=== PATIENT | female | born 1955 | race African-American/Black ===

== ENCOUNTER 2017-02-19 09:31 | Observation (INO) | payer OTHER ==
[2017-02-19 10:10] LABS: #Eosinphils 0.1 thou/uL (0.0-0.7); #Lymphocytes 2.9 thou/uL (1.20-3.40); #Monocytes 0.4 thou/uL (0.11-0.59); #Neutrophils 4.4 thou/uL (1.40-6.50); %Basophils 0.4 % (0.0-1.0); %Eosinophils 0.7 % (0.0-10.0); %Lymphocytes 37.1 % (21.0-51.0); %Monocytes 5.6 % (0.0-10.0); Hematocrit 45.2 % (36.0-47.0); Mean Platelet Volume 7.8 fL (7.4-10.4); Red Blood Cell (RBC) Count 5.07 mill/uL (4.20-5.40); White Blood Cell (WBC) Count 7.8 thou/uL (4.8-10.8)
[2017-02-19 10:27] LABS: ALT (SGPT) 24 U/L (8-55); AST (SGOT) 23 U/L (5-34); Alkaline Phosphatase 89 U/L (40-150); Anion Gap 13 mmol/L (10-20); BUN (Urea Nitrogen) 19 mg/dL (9.8-20.1); Bilirubin, Total 0.2 mg/dL (0.2-1.2); CK (CPK) 218 U/L (29-168); Calc. Creatinine Clearance 0 mL/min (70-130); Carbon Dioxide 26 mmol/L (22-29); Chloride 106 mmol/L (98-107); Estimated GFR-MDRD 79; Globulin 3.5 g/dL (2.4-3.5); Lipase 21 U/L (8-78); Protein, Total 7.8 g/dL (6.0-8.3)
[2017-02-19 10:32] LABS: Troponin I Less than 0.010 ng/mL (< 0.028)
--- NOTE | 2017-02-19 10:42 | CT ---
CT BRAIN WITHOUT CONTRAST: Date: 02/19/17 HISTORY: Syncope, weakness, right-sided weakness upper extremity which was new onset. FINDINGS: No evidence of acute infarct, hemorrhage, midline shift, or abnormal extra-axial fluid collections a re seen. The ventricular size is appropriate and the basilar cisterns are patent. The bony calvarium is intact. The visualized paranasal sinuses and mastoid air cells are well aerated. IMPRESSION: No CT evidence of acute intracranial process. Findings discussed over the telephone with ER physician, Dr. Florentin Ni, at 1028 hours. CODE CR. POS: [facility]
--- NOTE | 2017-02-19 10:44 | RAD ---
AP VIEW CHEST: HISTORY: Cough. FINDINGS: AP view chest is obtained on 02/19/17. Comparison is made to previous exam from 11/17/16. AP view chest demonstrates the lungs to be well aerated. No evidence of active intrathoracic diseas e is seen. No evidence of effusions, pneumonia, or pneumothorax is seen. IMPRESSION: Unremarkable AP view chest. POS: [facility]
[2017-02-19 12:24] LABS: Bilirubin Negative (Negative); Blood, Urine Negative (Negative); Glucose, Urine (Dipstick) Negative (Negative); Ketone, Urine Negative (Negative); Nitrite Negative (Negative); Protein, Urine (Dipstick) Negative (Neg-Trace); Urobilinogen 0.2 mg/dL (0.2-1.0)
[2017-02-19 12:29] LABS: Bacteria/HPF None Seen HPF (None Seen); Hyaline Casts/LPF 0-3 HYALINE CAST LPF (0-3 Hyaline); RBC/HPF 0-3 HPF (0-3)
[2017-02-19 12:36] LABS: Amphetamine Not Detected (NotDetected); Methadone Not Detected (NotDetected); Methamphetamine Not Detected (NotDetected)
[2017-02-19] MEDS ORDERED: Ondansetron HCl/PF 4 MG/2 ML Vial IVP PRN (13:20)
[2017-02-19] MEDS ORDERED: Ondansetron ODT 4 MG TAB SL PRN (13:20)
[2017-02-19] MEDS ORDERED: PROVENTIL INHALER 6.7 G (200 INHALATIONS) INH PRN (14:45)
--- NOTE | 2017-02-19 16:25 | ULT ---
BILATERAL CAROTID DUPLEX ULTRASOUND: DATE: 02/19/17 HISTORY: Right upper extremity weakness. TECHNIQUE: Slater scale ultrasound with color flow and spectral Doppler imaging of the extracranial carotid arter y systems was performed bilaterally. FINDINGS: There is extensive plaque formation on either side. The peak systolic velocity in the right ICA measures 116 cm/second with an end-diastolic velocity of 11 cm/second and a systolic ratio of 0.67. The peak systolic velocity in the left ICA measures 88 cm/second with an end-diastolic velocity of 1 3 cm/second and a systolic ratio of 0.55. Flow in both vertebral arteries remains antegrade. IMPRESSION: Mild (less than 50%) stenosis involving both internal carotid arteries. POS: [facility]
[2017-02-19 16:32] VITALS: BMI 26.9
--- NOTE | 2017-02-19 17:09 | MRI ---
NONCONTRAST ENHANCED MRI IMAGES OF BRAIN: 02/19/17 HISTORY: 61-year-old fainted this morning. Right upper extremity weakness. Multiplanar and multisequence noncontrast enhanced MRI images of the brain demonstrate some small ar eas of T2 signal abnormality seen on the FLAIR weighted sequences in the subcortical white matter co mpatible with some deep white matter ischemic changes. No evidence of diffusion restrictions seen. N o significant evidence of intracranial mass lesions seen. Normal flow voids seen in the major intrac ranial vessels. IMPRESSION: Deep white matter ischemic changes otherwise unremarkable MRI brain. POS: [facility]
--- NOTE | 2017-02-19 17:30 | HP-2 ---
ATTENDING PHYSICIAN: Ronald Blanco MD PRIMARY CARE PHYSICIAN: Svetlana Rodriguez M.D. CODE STATUS: FULL. HISTORIAN: Patient. CHIEF COMPLAINT: Syncope. HISTORY OF PRESENT ILLNESS: Patient is 61-year-old -[place] female here with a near syncopal episode. The patient reports that it occurred this morning when she was in the bathroom and walking to the kitchen. When she got to the kitchen, she had to sit down. The patient at this time reports that she does not remember anything until the EMS arrived; however, according to her common-law , she was "acting funny" and trying to stand up. However, he told her she never lost consciousness and had no head trauma. Her is not in the room during this interview. The patient also reports hand shaking during this episode, which she says has since resolved with associated numbness and tingling. She reports that this happened 3 other times, most recently about 1 month ago. The patient is a poor historian and story does seem to change depending on how questions are asked. She also endorses that she has been having right-hand weakness for about 1 month. Of note, the patient does seem to have frequent trips to the emergency room most recently in October where she had a COPD exacerbation, which was suspected to be due to cocaine abuse, which she admits to at that hospitalization as well as this hospitalization approximately 4 days ago. PAST MEDICAL HISTORY: 1. Systolic murmur 2. Chronic obstructive pulmonary disease. 3. Spondylolisthesis. 4. Hypercholesterolemia. 5. Essential hypertension. PAST SURGICAL HISTORY: x2, lower back fusion. ALLERGIES: NKDA. MEDICATIONS: Patient is a poor historian and has a difficult time endorsing medications; however, according to her clinic record last visit approximately 1 month ago. 1. Gabapentin 600 mg t.i.d. 2. Combivent q.i.d. p.r.n. 3. Tramadol 50 mg p.o. q.i.d. 4. ProAir 108 1-2 puffs q.4 hours p.r.n. 5. Spiriva 18 mcg 1 puff daily. 6. Advair 50-100 1 puff b.i.d. 7. Simvastatin 20 mg p.o. at bedtime. 8. Lisinopril 5 mg p.o. daily. SOCIAL HISTORY: The patient endorses a 30-nyps-onul smoking history; however, she reports that she is attempting to quit, is down to approximately 2 cigarettes daily. Reports 1-2 beers every other day. The patient endorses cocaine use as recently as 4 days ago. REVIEW OF SYSTEMS: General: Denies fevers or chills. Endorses increased appetite due to which she attributes to tobacco cessation. Eyes: Endorses occasional blurry vision. ENT: Endorses runny nose and congestion. Respiratory: Endorses cough and shortness of breath occasionally, which is stable and baseline. Cardiovascular: Denies palpitations or chest pain. Gastrointestinal: Denies vomiting, diarrhea or GI bleeding. Skin: Denies rashes or itching. Musculoskeletal: Endorses back pain. Neuro: Endorses weakness. Denies seizures. Psych: Denies anxiety or depression. PHYSICAL EXAMINATION: VITAL SIGNS: Blood pressure 147/59, pulse 90, respiratory rate 18, T-max 97.0, pulse ox 99% on room air. Current weight 54.4 kilograms. GENERAL: Alert and oriented x3, in no acute distress. EYES: PERRLA, EOMI. ENT: Nasal mucosa and oropharynx within normal limits. NECK: Supple with no lymphadenopathy. CARDIOVASCULAR: Regular rate and rhythm with no murmurs. Radial pulses symmetric bilaterally. RESPIRATORY: Normal effort. Clear to auscultation bilaterally. ABDOMEN: Soft and nontender with bowel sounds in all 4 quadrants. EXTREMITIES: No cyanosis or edema. MUSCULOSKELETAL: Structure and tone within normal limits. Muscle strength 4/5 in the right hand. All other muscle strength is 5/5 and symmetric bilaterally. NEUROLOGIC: No focal deficits. Sensation within normal limits. LABORATORY DATA: WBC 7.8, H/H 14.4/45.2, platelets 306,000. Sodium 141, potassium 4.4, chloride 106, bicarbonate 26, BUN 19, creatinine 0.88 and glucose 101. Total protein 7.8, albumin 4.3, total bilirubin 0.2, AST 23, ALT 24, alkaline phosphatase 89. CK 218, CK-MB 3.8, troponin is less than 0.010. UA, leukocyte esterase moderate, wbc 7-10, squamous epithelial cells 4-6. UDS positive for cocaine and cannabinoids. IMAGINGS: Chest x-ray is unremarkable. CT of the brain without contrast shows no evidence of acute process. Transthoracic echo in 06/2016 shows 1/3 diastolic dysfunction and 70-75% ejection fraction. ASSESSMENT AND PLAN: A 61-year old female presenting with 1. Transient ischemic attack, rule out stroke. The patient still has mild weakness in the right hand. We will get an MRI of the head as patient has never had any MRI imaging done. We will also get carotid Dopplers. We will continue with statin and aspirin. 2. Hypertension. We will continue with lisinopril. Continue to monitor. 3. History of cocaine abuse. We will counselor education professor patient for cessation of crack cocaine use. 4. Chronic obstructive pulmonary disease, continue with home medications. We will continue monitor as it is uncertain if patient is taking all medications. 5. Hypercholesterolemia. Continue with statin. 6. Near syncopal episode. Likely related to cocaine use, will check orthostatics DISPOSITION AND LENGTH OF HOSPITAL STAY: 1. Observation stroke for possibly just 1 day. 2. Symptomatic medications will be provided. History and physical exam as well as management were discussed with Dr. Blanco. [facility]
--- NOTE | 2017-02-19 18:29 | HP ---
DATE OF SERVICE: 02/19/2017 CHIEF COMPLAINT: Fainting. HISTORY OF PRESENT ILLNESS: This is a 61-year-old female with past history of COPD, cocaine abuse, hypertension, who had just gotten done having a bowel movement when she stood up and was walked in t he borden became quite dizzy and what she felt like was weak on her right side, attempted to stand up and called her and then subsequently remembered waking up with the paramedics. There were n o reported history of abnormal motions during this time and she remembers being quite lucid when she woke up with the paramedics. Denied any palpitations or chest pain beforehand. No vertigo or room spinning, but did feel lightheaded. Currently, she denies any right upper extremity weakness like she had before any presyncope, chest pain, trouble breathing, or other complaints. REVIEW OF SYSTEMS: General: No fever or chills. Eyes: No decreased visual acuity or eye pain. E NT: No sore throat or ear pain or trouble swallowing. Cardiovascular: Negative for chest pain, pa lpitations or edema. Respiratory: No cough or hemoptysis. Gastrointestinal: No nausea, vomiting, diarrhea or constipation. Genitourinary: No dysuria or urg ency. Neurologic: As per HPI. Denies any numbness anywhere. Heme: No easy bruising or bleeding. Psychiatric: No depression or anxiety. PAST MEDICAL HISTORY: Positive for chronic obstructive pulmonary disease, low-back pain, hyperlipid emia, hypertension, cocaine abuse, tobacco abuse, marijuana abuse. PAST SURGICAL HISTORY: Positive for x2 and a low back spinal fusion. ALLERGIES: No known drug allergies. FAMILY HISTORY: Positive for cerebral aneurysm in her mother, hypertension, and hyperlipidemia. MEDICATIONS: 1. Albuterol. 2. Spiriva. 3. Advair and she does not know several of the medications that she takes at home. SOCIAL HISTORY: She has been trying to quit smoking, only had two cigarettes yesterday because she ran on nicotine patch. She drinks socially and drug use is as above. Positive for cocaine and kailey krystle. She smokes cocaine and last use was 4 days ago. PHYSICAL EXAMINATION: VITAL SIGNS: Blood pressure 128/74, pulse 86, respirations 18, temperature 97, O2 sat 95% on room a ir. GENERAL: No acute distress, resting comfortably, eating dinner or late lunch. HEENT: Eyes, slight icterus and injection. Moist mucous membranes. No oral ulcers or any orophary ngeal trauma. NECK: Trachea midline. CARDIOVASCULAR: Regular rate and rhythm. No murmurs, gallops or rubs. No peripheral edema. Pulse s 2+. RESPIRATORY: No increased work of breathing. LUNGS: Clear to auscultation bilaterally on my exam without wheezes. GASTROINTESTINAL: Bowel sounds positive. EXTREMITIES: Nontender to palpation. GENITOURINARY: Deferred. MUSCULOSKELETAL: Without deformity or fracture or swelling. NEUROLOGICAL: Cranial nerves II-XII grossly intact and symmetric and her abdi are full to confron tation bilaterally. Pupils equal, round, reactive to light. Motor is 5/5 in both upper extremities and lower extremities that felt muscles and sensation is intact to light touch throughout as well. DTRs 2+ in the upper and lower extremities. Brachial and patellar reflexes respectively. She is a lert and oriented x3 from a psychiatric standpoint with her mood and affect congruent and appropriat e with current medical situation. LABORATORY DATA AND IMAGINGS: Her CBC is reviewed and normal. BMP is reviewed. Positive for calci um of 11 with albumin of 4.3. Creatinine kinase is 218, leukocyte esterase of that is moderate with some 10 whites and 4-6 squamous epithelial cells. Tox was positive for cocaine and cannabinoids. CT head was with no acute intracranial abnormality. Chest x-ray was with definite flattening and so me scarring of the bases. EKG: Normal sinus rhythm with a normal axis and she appears to meet crit eria for LVH and has appeared to be repolarization abnormalities of the lateral leads, however, noti cing ST elevation or depression. ASSESSMENT AND PLAN: This is a 61-year-old female with: 1. Syncope, suspect this is a vasovagally mediated. She just had a bowel movement as well as a rec ent cocaine use. We will obtain TTE, have her on telemetry and perform orthostatics. 2. Right upper extremity weakness, suspect transient ischemic attack. We will go ahead and obtain MRI brain to further evaluate. Continue her aspirin and statin, which were apparently home medicati ons per Dr. Grover, who had seen her before. 3. Hypercalcemia. We will obtain a PTH and phos with a.m. labs and volume resuscitate. I suspect she has a component of hypovolemia. 4. Chronic obstructive pulmonary disease. We will control medications while in house. 5. Hypertension. In light of suspected transient ischemic attack, we will hold blood pressure medi cations for now unless her pressures come markedly elevated. 6. Hyperlipidemia. We will continue statin. 7. Elevated creatinine kinase. We will recheck in the a.m. to ensure it is downtrending. 8. Deep venous thrombosis prophylaxis with Lovenox. 9. Gastrointestinal prophylaxis with diet.
[2017-02-19] MEDS ORDERED: Atorvastatin Calcium 40 MG TAB PO SCH (21:00)
[2017-02-19] MEDS ORDERED: Atorvastatin Calcium 10 MG TAB PO SCH (21:00)
[2017-02-20 06:11] LABS: Phosphorus 3.4 mg/dL (2.3-4.7)
--- NOTE | 2017-02-20 08:30 | PDOC.FM ---
- Subjective Subjective: Patient reports doing well overnight, was able to walk with no dizzy episodes. This morning she had a similar episode of lightheadedness, hand shaking. This occurred when she was standing up from rest. Symptoms have resolved since then. Stroke team evaluated this morning and found no deficits. No HENDERSON, CP, SOB, weakness/numbness presently. - Objective MAR Reviewed: Yes Vital Signs & Weight: Vital Signs (12 hours) Temp Pulse Resp BP BP Pulse Ox 02/20/17 08:02 98.1 F 84 16 02/20/17 07:57 84 02/20/17 07:43 98.1 F 84 16 135/84 93 L 02/20/17 04:15 98.2 F 85 16 168/70 H 96 02/19/17 23:19 98.1 F 86 16 161/60 H 99 02/19/17 22:20 86 16 99 02/19/17 20:44 98.7 F 90 16 156/61 H 95 02/19/17 20:40 98.7 F 90 16 Weight Weight 62.641 kg I&O: 02/19/17 02/20/17 02/21/17 06:59 06:59 06:59 Intake Total 1000 Balance 1000 Result Diagrams: 02/19/17 09:58 02/19/17 09:57 <Juan Grover - Last Filed: 02/20/17 09:18> - Objective Vital Signs & Weight: Vital Signs (12 hours) Temp Pulse Pulse Pulse Resp BP BP 02/20/17 11:57 88 20 02/20/17 11:27 98.6 F 80 18 02/20/17 08:45 88 89 139/60 144/56 H 02/20/17 08:35 89 20 02/20/17 08:14 87 84 122/52 L 148/57 H 02/20/17 08:02 98.1 F 84 16 02/20/17 07:57 84 02/20/17 07:43 98.1 F 84 16 02/20/17 04:15 98.2 F 85 16 BP Pulse Ox 02/20/17 11:57 02/20/17 11:27 119/56 L 100 02/20/17 08:45 02/20/17 08:35 99 02/20/17 08:14 02/20/17 08:02 02/20/17 07:57 02/20/17 07:43 135/84 93 L 02/20/17 04:15 168/70 H 96 Weight Weight 62.641 kg I&O: 02/19/17 02/20/17 02/21/17 06:59 06:59 06:59 Intake Total 1000 Balance 1000 Result Diagrams: 02/19/17 09:58 02/20/17 12:03 <Lilia Rossi - Last Filed: 02/20/17 13:28> Phys Exam - Physical Examination Constitutional: NAD HEENT: PERRLA, moist MMs Respiratory: no wheezing, clear to auscultation bilateral Cardiovascular: RRR, no significant murmur Gastrointestinal: soft, non-tender, positive bowel sounds Musculoskeletal: no edema, pulses present Neurological: normal sensation, moves all 4 limbs 5/5 strength Psychiatric: normal affect, A&O x 3 <Juan Grover - Last Filed: 02/20/17 09:18> Dx/Plan (1) Vasovagal episode Code(s): R55 - SYNCOPE AND COLLAPSE Status: Acute Plan: counseled patient on staying well hydrated, taking time when standing, and not straining with BM (2) COPD (chronic obstructive pulmonary disease) Status: Acute Plan: stable, continue on home meds at this time (3) Elevated creatine kinase Status: Acute Plan: In elevated range, however she has history of elevated CK and today's value appears to be appropriate for her (4) Hypercalcemia Code(s): E83.52 - HYPERCALCEMIA Status: Acute Plan: workup revealed only a vitD deficiency (5) Tobacco abuse counseling Code(s): Z71.6 - TOBACCO ABUSE COUNSELING Status: Acute Plan: counseled (6) Cocaine abuse Code(s): F14.10 - COCAINE ABUSE, UNCOMPLICATED Status: Chronic Plan: counseled (7) Diastolic CHF, chronic Code(s): I50.32 - CHRONIC DIASTOLIC (CONGESTIVE) HEART FAILURE Status: Chronic (8) Hypertension Code(s): I10 - ESSENTIAL (PRIMARY) HYPERTENSION Status: Chronic Plan: gradually rising overnight, some permissive HTN allowed overnight (9) TIA (transient ischemic attack) Status: Suspected Plan: suspected, likely exacerbated by cocaine abuse. Could also be vasovagal as patient described dizziness after BM. <Juan Grover - Last Filed: 02/20/17 09:18> Attending Addendum - Attending Addendum I personally evaluated the patient and discussed the management with Dr. Grover I agree with the History, Examination, Assessment and Plan documented above with any addition or exceptions noted below. 61 yo female with history of substance abuse/dependance presents for presyncopal event. HD#1 No acute events overnight. At baseline. No complaints today. Asymptomatic. Presyncope 2/2 orthostasis due to dehydration: s/p 1 L bolus. Orthostasis negative this AM. Vasovagal event during BM. Continues to use cocaine and marijuana daily. Discussed risk. dHF also as complication. Substance abuse: Needs chronic dz screening. Will check outpatient labs. If not done will add to blood in lab. Hypercalcemia: Noted to be elevated for some time. Unsure of workup. Appears to be related to primary cause vs renal. Inappropriately elevated iPTH. Needs 24 hour urine calcium. Elevated CK: Possibly related to statin drug use. Would hold x 1 month and repeat studies. If still elevated needs workup. Chronic White matter ischemic changes Symptoms resolved. Ok for d/c today. Flex <Lilia Rossi - Last Filed: 02/20/17 13:28>
[2017-02-20] MEDS ORDERED: Aspirin 81 mg Enteric Coated Tablet PO SCH (09:00)
[2017-02-20] MEDS ORDERED: Lisinopril 5 MG TAB PO SCH (09:00)
[2017-02-20 11:28] VITALS: TEMP 98.6
[2017-02-20 12:45] LABS: Anion Gap 16 mmol/L (10-20); BUN (Urea Nitrogen) 16 mg/dL (9.8-20.1); Calc. Creatinine Clearance 62 mL/min (70-130); Calcium 10.1 mg/dL (7.8-10.44); Carbon Dioxide 23 mmol/L (22-29); Chloride 104 mmol/L (98-107); Estimated GFR-MDRD 73
[2017-02-20 12:50] VITALS: BP 139/60
--- NOTE | 2017-02-23 10:39 | DIS-2 ---
DATE OF ADMISSION: 02/19/2017 DATE OF DISCHARGE: 02/20/2017 RESIDENT: Juan Grover D.O. ADMITTING ATTENDING: Dr. Ronald Blanco. DISCHARGE ATTENDING: Dr. Lilia Rossi. CONSULTATIONS: None. PROCEDURES: Chest x-ray showing no acute cardiopulmonary process. CT of the brain showing no acute intracranial process. Brain MRI showing deep white matter ischemic changes. Carotid Doppler study showing mild less than 50% stenosis involving both internal carotid arteries. PRIMARY DIAGNOSES: 1. Presyncopal episode likely vasovagal due to dehydration. 2. Substance abuse. SECONDARY DIAGNOSES: 1. Chronic obstructive pulmonary disease. 2. Hypertension. 3. Hypercalcemia. 4. Elevated CK. DISCHARGE MEDICATIONS: 1. Aspirin 81 mg p.o. daily. 2. Lisinopril 5 mg p.o. daily. 3. Tramadol 50 mg p.o. q.i.d. p.r.n. pain. 4. Ventolin HFA inhaler 2 puffs inhaled t.i.d. 5. Spiriva 1 puff inhaled b.i.d. 6. Fluticasone/salmeterol (Advair Diskus) 100/50 two puffs inhaled b.i.d. DISCONTINUED MEDICATIONS: Simvastatin 20 mg p.o. at bedtime. HISTORY OF PRESENT ILLNESS AND HOSPITAL COURSE: The patient is a 61-year-old female who presented t o the ER with signs suggestive of possible transient ischemic attack as patient had been getting off the toilet after a large bowel movement and had dizziness. When she arrived in ER, patient receive d a liter of normal saline fluids. Also, she had admitted to consuming crack cocaine approximately 4 days prior. The patient reports that she used the cocaine because she had called [facility]'s office for tramadol medication refill request, but did not receive it. Therefore, she used cocaine for pain relief of her chronic back pain; however, view of our clinic records indicated that she did receive a prescription refill on the day before she presented to the hospital. In any case , patient was also reporting handshaking and numbness as well as weakness in the right hand during t his episode. In the hospital, patient was noted to have 4/5 strength of the right hand and less camron n on the left; however, it is difficult to determine if this was genuine or factitious/malingering. On day #2 of hospitalization, patient was noted to be significantly improved in symptoms. All imag ing returned negative for acute process. Additionally, patient had a similar lightheaded episode wh en sitting up from lying down overnight, which resolved after few seconds. The patient was counsele d extensively that she would likely continue having these episodes if she continued using crack coca ine for pain relief or any form of recreational use. Regarding the patient's hypercalcemia, patient has had elevated levels in the past; however, they salmeron ve never been as high as 11 which is what it was today. Repeat on day of discharge was 10.1, theref ore, indicating that it was likely just due to dehydration, as this seems to be the case that she salmeron s consumption of cocaine and then comes to the hospital approximately 3 to 4 days later with poor se lf-care in the interim. The patient's phosphorus was 3.4, magnesium 2.0. Vitamin D total was 11.8. PTH was 51 (19.8-88.0). It would likely be beneficial for patient to have an outpatient 24-hour u rine calcium drawn to look for this possible source of elevated calcium, although this might not be necessary since it did normalize on day of discharge. Regarding the patient's elevated creatine kinase level, the patient initially presented with a creat ine kinase of 218, which is actually the lowest it has ever been spiking as high as 1521, 18 months ago and always being greater than 250. It might be worth considering discontinuing the patient's st atin. She does have vague complaints of occasional pain in her muscles, although this might just be evaluation that needs to be done in the outpatient setting or something that just could be watched overtime. DISPOSITION: Stable. DISCHARGE INSTRUCTIONS: 1. Location: Home. 2. Diet: As tolerated. 3. Activity: As tolerated. 4. Followup: Follow up with PCP in the next 7 days.
== END 2017-02-20 12:58 | disposition home or self-care (01) ==
LOC: ERS 09:31 → 2SE 11:59
PROVIDERS: ADMIT Family Medicine; ATTEND Family Medicine
DX: R55 Syncope and collapse (principal); F19.10 Other psychoactive substance abuse, uncomplicated; J44.9 Chronic obstructive pulmonary disease, unspecified; I10 Essential (primary) hypertension; E83.52 Hypercalcemia; R74.8 Abnormal levels of other serum enzymes; R01.1 Cardiac murmur, unspecified; E78.00 Pure hypercholesterolemia, unspecified; I65.29 Occlusion and stenosis of unspecified carotid artery; R53.1 Weakness; F17.210 Nicotine dependence, cigarettes, uncomplicated; F14.10 Cocaine abuse, uncomplicated; F12.10 Cannabis abuse, uncomplicated; Z98.1 Arthrodesis status; Z79.82 Long term (current) use of aspirin; Z79.51 Long term (current) use of inhaled steroids; Z79.899 Other long term (current) drug therapy; Z82.49 Family history of ischemic heart disease and other diseases of the circulatory system
CPT/HCPCS: 36415; 36416; 70450; 70551; 71010; 80048; 80053; 80061; 80306; 81003; 81015; 82085; 82306; 82550; 82553; 83690; 83735; 83970; 84100; 84484; 85025; 90471; 90732; 93005; 93880; 94640; 94760; G0009; G0378; G8978-GP-CH; G8979-GP-CH; G8980-GP-CH; G8987-GO-CH; G8988-GO-CH; G8989-GO-CH; J7620

== ENCOUNTER 2017-03-16 01:00 | Inpatient (IN) | payer OTHER ==
[2017-03-16] MEDS ORDERED: Albuterol Sulfate 2.5 mg/0.5 ml Neb ONE (01:30)
[2017-03-16] MEDS ORDERED: Azithromycin 500 MG VIAL ONE (01:37)
[2017-03-16] MEDS ORDERED: methylPREDNISolone Sod Succ/PF 125 MG/2 ML VIAL ONE (01:37)
[2017-03-16] MEDS ORDERED: cefTRIAXone\\ROCEPHIN 1 GM VIAL ONE (01:38)
[2017-03-16 01:42] LABS: #Basophils 0.1 thou/uL (0.0-0.2); #Eosinphils 0.1 thou/uL (0.0-0.7); #Lymphocytes 5.3 thou/uL (1.20-3.40); #Monocytes 0.8 thou/uL (0.11-0.59); #Neutrophils 4.6 thou/uL (1.40-6.50); %Basophils 1.3 % (0.0-1.0); %Eosinophils 1.1 % (0.0-10.0); %Lymphocytes 48.2 % (21.0-51.0); %Monocytes 7.2 % (0.0-10.0); Hematocrit 39.8 % (36.0-47.0); Mean Platelet Volume 8.3 fL (7.4-10.4); Red Blood Cell (RBC) Count 4.53 mill/uL (4.20-5.40)
[2017-03-16 01:57] LABS: Lactic Acid - Sepsis 1.7 mmol/L (0.5-2.2)
[2017-03-16] MEDS ORDERED: Magnesium 2 GM/NS 0.9% 50 ML 2 GM in Premix Bag 1 BAG IVPB SCH (02:00)
[2017-03-16 02:03] LABS: ALT (SGPT) 19 U/L (8-55); AST (SGOT) 21 U/L (5-34); Alkaline Phosphatase 85 U/L (40-150); Anion Gap 11 mmol/L (10-20); BUN (Urea Nitrogen) 20 mg/dL (9.8-20.1); Bilirubin, Total 0.2 mg/dL (0.2-1.2); CK (CPK) 347 U/L (29-168); Calc. Creatinine Clearance 0 mL/min (70-130); Calcium 10.1 mg/dL (7.8-10.44); Carbon Dioxide 24 mmol/L (22-29); Chloride 107 mmol/L (98-107); Estimated GFR-MDRD 65; Globulin 3.1 g/dL (2.4-3.5); Lipase 17 U/L (8-78); Protein, Total 7.1 g/dL (6.0-8.3)
[2017-03-16 02:04] LABS: Troponin I Less than 0.010 ng/mL (< 0.028)
[2017-03-16] MEDS ORDERED: Ondansetron HCl/PF 4 MG/2 ML Vial ONE (03:25)
[2017-03-16] MEDS ORDERED: traMADol HCl 50 MG TAB PO PRN (03:50)
[2017-03-16] MEDS ORDERED: Acetaminophen 650 MG Suppository PR PRN (04:22)
[2017-03-16] MEDS ORDERED: Acetaminophen 325 MG TAB PO PRN (04:22)
[2017-03-16] MEDS ORDERED: Bisacodyl 10 MG SUPP PR PRN (04:22)
[2017-03-16] MEDS ORDERED: Bisacodyl 5 MG TAB PO PRN (04:22)
[2017-03-16] MEDS ORDERED: Ondansetron HCl/PF 4 MG/2 ML Vial IVP PRN (04:22)
[2017-03-16] MEDS ORDERED: Ondansetron ODT 4 MG TAB PO PRN (04:22)
[2017-03-16] MEDS ORDERED: Enoxaparin Sodium 40 MG/0.4 ML SYRINGE SC SCH (04:30)
[2017-03-16] MEDS ORDERED: Benzonatate 100 MG CAP PO PRN (04:53)
[2017-03-16] MEDS ORDERED: guaiFENesin 100 MG/5 ML UDCUP PO PRN (04:53)
[2017-03-16 05:53] LABS: Amphetamine Not Detected (NotDetected); Methadone Not Detected (NotDetected); Methamphetamine Not Detected (NotDetected)
[2017-03-16] MEDS ORDERED: Spiriva 18 MCG CAP (Box of 5 Caps) INH SCH (07:00)
--- NOTE | 2017-03-16 07:05 | HP-2 ---
DATE OF ADMISSION: 03/16/2017 LOCATION: [facility] CODE STATUS: Full. PRIMARY CARE PHYSICIAN: Dr. Zavala ATTENDING: Dr. Lokesh Boudreaux RESIDENT: Marco Lei M.D. HISTORIAN: The patient. CHIEF COMPLAINT: Shortness of breath. HISTORY OF PRESENT ILLNESS: This is a 64-year-old female with a history of COPD, r eported she came in with trouble breathing and having headache pain. She says the shortness of meche th and trouble breathing started a few days ago. Reported doing a lot of coughing, not really cough ing anything up. Denies any fever or chills. Reports that when she would go to lay down flat, woul d have a hard time getting short of breath and would have to prop herself up. Denies any swelling, nausea or vomiting. Today, she started saying that her shortness of breath started getting really worse and when she went to lay down, she got really short of breath, and with this time she came to the ER. Also, says at this time she presents with a headache along the right side of her head. Den ies any photophobia. Denies any numbness or tingling or loss of sensation and able to move all extr emities. REVIEW OF SYSTEMS: All review of systems are negative unless otherwise noted in the HPI. PAST MEDICAL HISTORY: History of systolic murmur, COPD, spondylolisthesis, hypercholesterolemia, hy pertension. PAST SURGICAL HISTORY: x2, low back fusion. ALLERGIES: No known drug allergies. MEDICATIONS: Gabapentin 600 mg t.i.d., Combivent q.i.d., tramadol 50 mg q.i.d., ProAir 108 one to t wo q.4h. p.r.n., Spiriva 18 mg 1 puff, Advair 5/500 1 puff p.r.n., simvastatin 20 mg, lisinopril 5 m g. SOCIAL HISTORY: She quit smoking 3 weeks ago. Occasional alcohol use and smoked cocaine about a we ek ago. PHYSICAL EXAMINATION: VITAL SIGNS: Blood pressure is 176/50, pulse of 87, respirations 22, temperature is 97.7, pulse ox 98% on BiPAP. Current weight is 59 kilograms. GENERAL: She is alert and oriented x3. Well-developed, thin and appropriately interactive. EYES: PERRLA. Conjunctivae within normal limits. ENT: Oropharynx within normal limits. NECK: Supple, no lymphadenopathy, no thyromegaly, no bruits. CARDIOVASCULAR: Regular rate and rhythm. No murmur noted, no gallops. Radial pulses and pedal pul ses palpated bilaterally. RESPIRATORY: Normal breathing effort. No retractions. Lungs are clear to auscultation bilaterally . SKIN: Warm and dry. No lesions. ABDOMEN: Soft, nontender to palpation. Bowel sounds heard in all 4 quadrants. No masses or disten tion. MUSCULOSKELETAL: Structure within normal, tone within normal limits. Full range of motion. NEUROLOGIC: No focal neuro deficit. Sensation within normal limits. Bridget coma scale 15. PSYCHIATRIC: Appropriate. PERTINENT LABORATORY: White blood cell count 11, hemoglobin 13.2, hematocrit 39.8, MCV is 88, plate lets 269. CK 347, CK-MB 6.0, troponin is 0.01. Sodium is 138, potassium 3.8, chloride 107, CO2 24, BUN is 20, creatinine 1.04, glucose is 121, calcium 7.1, total protein 7.1, albumin is 4.0, alkalin e phosphatase 85, AST 21, ALT is 19, total bilirubin is 0.2. Flu was negative and lactic acid was 1 .7. Lipase was 17. IMAGING: Chest x-ray from our visualization did not see anything acute and no abnormality. Heart s ize looked normal. Still awaiting the official read from the radiologist. ASSESSMENT AND PLAN: 1. Chronic obstructive pulmonary disease exacerbation. We will send her to the IM. We will keep her on BiPAP overnight and then continue to wean off as tolerated. I will give scheduled nebs q.4h . and give DuoNebs p.r.n. as needed. We will start her on Levaquin, prednisone and continue her judy e inhalers. 2. Hypertension. We will continue her home medications. 3. History of drug abuse, cocaine. We will get a urinary drug screen and then we will continue her home meds for her spondylolisthesis as well.
[2017-03-16] MEDS: Mometasone/Formoterol 120 PUFF INHALER INH SCH ×2 (07:29→18:22)
--- NOTE | 2017-03-16 08:10 | RAD ---
PORTABLE CHEST ONE VIEW: 03/16/2017 1:45 a.m. HISTORY: Shortness of breath. COMPARISON: 02/19/2017 FINDINGS: The heart size is normal. The lungs are well expanded without focal areas of consolidation, pneumot horax, or pleural effusions. IMPRESSION: No acute process. POS: [facility]
[2017-03-16] MEDS: predniSONE 20 MG TAB PO SCH (08:36)
[2017-03-16] MEDS ORDERED: FLUTICASONE INH SCH (09:00)
[2017-03-16] MEDS ORDERED: Lisinopril 5 MG TAB PO SCH (09:00)
[2017-03-16] MEDS ORDERED: SALMETEROL INH SCH (09:00)
[2017-03-16] MEDS ORDERED: Sodium Chloride 0.9% 1,000 ML IV SCH (10:30)
[2017-03-16] MEDS ORDERED: Acetaminophen 500 MG TAB PO SCH (10:45)
[2017-03-16] MEDS: Amoxicillin/Potassium Clav 500 MG TAB PO SCH ×2 (12:09→17:43)
[2017-03-16 12:35] LABS: Mode NC; Oxyhemoglobin 96.4 % (94.0-97.0); Sodium 140 mmol/L (135-148); Vent NO
--- NOTE | 2017-03-16 16:07 | PDOC.EVN ---
Event Note - Event Note Event Note: Attending H&P I personally evaluated the patient and discussed the management with Dr. Lei and Dr Lopez this morning at 9am. I have reviewed the written H&P and it is repeated by me. I agree with the History, Examination, Assessment and Plan documented above with any addition or exceptions noted below. Ms. Holloway responded well to Bipap, but since going off Bipap has slightly worsened. We will repeat a breathing treatment and then reassess. Hopefully can transfer out of the [facility] today.
[2017-03-16] MEDS: Calcium Carbonate 500 MG ChewTAB PO PRN ×2 (17:01→21:16)
--- NOTE | 2017-03-16 17:49 | CON ---
DATE OF CONSULTATION: 03/16/2017 HISTORY OF PRESENT ILLNESS: Ms. Holloway is a 61-year-old female with a history of obstructive lung d isease. She is quick to admit that when she smokes crack, she has trouble breathing. She presents with shortness of breath. Drug screen is positive for cocaine. She was noninvasively ventilated an d is now feeling much better and actually wanted to know when she might go home. PAST MEDICAL HISTORY: Remarkable for hypertension, diastolic heart failure, lipid disorder, two C-s ections, and history of back surgery. ALLERGIES: She has no reported drug allergies. SOCIAL HISTORY: She is a 1-2 pack a day smoker, although she said she had not smoked in 3 weeks. S he drinks socially. She uses cocaine, has history of using marijuana. REVIEW OF SYSTEMS: Otherwise negative. She denies having fever at home. PHYSICAL EXAMINATION: GENERAL: She is afebrile, heart rate 100, respiratory rate in the teens. Oximetry is 99 on 3 liter s, blood pressure 114/43. HEAD AND NECK: Unremarkable. She appears older than her age. LUNGS: Clear. HEART: Regular rhythm. S1 and S2 are normal. ABDOMEN: Soft and nontender. EXTREMITIES: Without asymmetry. LABORATORY DATA: Sodium 138, potassium 3.8, chloride 107, bicarbonate 24, BUN 20, creatinine 1.04. White count 11, hemoglobin 13.2, platelets 269. IMPRESSION: Chronic obstructive pulmonary disease exacerbation secondary to past tobacco use and on going to cocaine use. PLAN: Steroids, nebulizer treatments, home soon. If she is cleared tomorrow, she could be discharg ed home on steroid taper with p.o. antimicrobial therapy.
[2017-03-16] MEDS: Simvastatin 20 MG TAB PO SCH (21:07)
[2017-03-17] MEDS: Calcium Carbonate 500 MG ChewTAB PO PRN ×2 (01:08→20:48)
[2017-03-17] MEDS: Amoxicillin/Potassium Clav 500 MG TAB PO SCH (04:12)
[2017-03-17 05:11] LABS: Anion Gap 12 mmol/L (10-20); BUN (Urea Nitrogen) 12 mg/dL (9.8-20.1); Calc. Creatinine Clearance 67 mL/min (70-130); Calcium 10.4 mg/dL (7.8-10.44); Carbon Dioxide 22 mmol/L (22-29); Chloride 110 mmol/L (98-107); Estimated GFR-MDRD 86
[2017-03-17 05:28] LABS: Hematocrit 36.8 % (36.0-47.0); Mean Platelet Volume 8.4 fL (7.4-10.4); Neutrophil 77 % (42-75); Red Blood Cell (RBC) Count 4.26 mill/uL (4.20-5.40); White Blood Cell (WBC) Count 25.8 thou/uL (4.8-10.8)
--- NOTE | 2017-03-17 06:34 | PDOC.FM ---
- Subjective Subjective: Patient reports feeling better. She states that she is almost back to baseline. She has been able to walk around without becoming short of breath. - Objective MAR Reviewed: Yes Vital Signs & Weight: Vital Signs (12 hours) Temp Pulse Resp BP Pulse Ox 03/17/17 04:22 98.3 F 106 H 18 126/58 L 94 L 03/17/17 03:21 97 03/17/17 03:20 97 03/16/17 23:30 94 L 03/16/17 23:20 98.5 F 115 H 22 H 149/65 H 94 L 03/16/17 22:29 115 H 16 98 03/16/17 19:57 98.5 F 115 H 16 98 03/16/17 19:40 98.5 F 113 H 22 H 157/49 H 95 Weight Weight 57.833 kg I&O: 03/15/17 03/16/17 03/17/17 06:59 06:59 06:59 Intake Total 275 Output Total 770 Balance -495 Result Diagrams: 03/17/17 04:30 03/17/17 04:30 <Nicole Lopez C - Last Filed: 03/17/17 08:16> - Objective Vital Signs & Weight: Vital Signs (12 hours) Temp Pulse Resp BP Pulse Ox 03/17/17 07:51 97.4 F L 104 H 18 141/64 H 94 L 03/17/17 06:58 100 14 03/17/17 04:22 98.3 F 106 H 18 126/58 L 94 L 03/17/17 03:21 97 03/17/17 03:20 97 Weight Weight 57.833 kg I&O: 03/16/17 03/17/17 03/18/17 06:59 06:59 06:59 Intake Total 275 Output Total 770 Balance -495 Result Diagrams: 03/17/17 04:30 03/17/17 04:30 <Lokesh Boudreaux - Last Filed: 03/17/17 12:26> Phys Exam - Physical Examination Constitutional: NAD crackles heard over right upper lung field. Cardiovascular: RRR, no significant murmur Gastrointestinal: soft, non-tender Musculoskeletal: no edema Psychiatric: normal affect, A&O x 3 <Nicole Lopez - Last Filed: 03/17/17 08:16> Dx/Plan (1) SIRS (systemic inflammatory response syndrome) Code(s): R65.10 - SIRS OF NON-INFECTIOUS ORIGIN W/O ACUTE ORGAN DYSFUNCTION Status: Acute Plan: sinus tachycardia and elevated white count. suspect possible HCAP. Will order PA/Lat CXR to further evaluate. Will broaden antibiotic coverage for HCAP. (2) COPD exacerbation Code(s): J44.1 - CHRONIC OBSTRUCTIVE PULMONARY DISEASE W (ACUTE) EXACERBATION Status: Acute Plan: Improving. Will discontinue scheduled duonebs and continue prn duonebs. continue steroids for a total of 5 days. (3) Elevated creatine kinase Status: Chronic Plan: chronically elevated CK. pt is asymptomatic. further workup on an outpatient basis is warranted. (4) Cocaine abuse Code(s): F14.10 - COCAINE ABUSE, UNCOMPLICATED Status: Chronic (5) Hypertension Code(s): I10 - ESSENTIAL (PRIMARY) HYPERTENSION Status: Chronic Plan: BP stable. Continue current regimen. (6) Acute respiratory failure with hypoxia Code(s): J96.01 - ACUTE RESPIRATORY FAILURE WITH HYPOXIA Status: Resolved Plan: resolved. Pt no longer requiring NIPPV or supplemental oxygen. <Nicole Lopez - Last Filed: 03/17/17 08:16> Attending Addendum - Attending Addendum I personally evaluated the patient and discussed the management with Dr. Lopez. I agree with the History, Examination, Assessment and Plan documented above with any addition or exceptions noted below. Patient appears clinically better fmo yesterday, but signs of pneumonia are developing. Recent hospitalization implies HCAP. <Lokesh Boudreaux - Last Filed: 03/17/17 12:26>
[2017-03-17] MEDS: Mometasone/Formoterol 120 PUFF INHALER INH SCH ×2 (06:57→18:30)
--- NOTE | 2017-03-17 08:43 | RAD ---
PA AND LATERAL VIEWS OF CHEST: Date: 03/17/17 HISTORY: Pneumonia, dyspnea. FINDINGS/IMPRESSION: Comparison made with exam from previous day. The heart size is normal. The aorta is tortuous. The lungs are well expanded with probable mild infi ltrate in the right lower lung. This may represent a developing/early pneumonia. POS: [facility]
[2017-03-17] MEDS ORDERED: FLU VACC QS2017-18 36 mo. & older 0.5 ML SYRINGE IM ONE (09:00)
[2017-03-17] MEDS ORDERED: Vancomycin HCl 1 GM in Premix Bag 1 BAG IVPB SCH (09:00)
[2017-03-17] MEDS: Losartan Potassium 25 MG TAB PO SCH (10:01)
[2017-03-17] MEDS: predniSONE 20 MG TAB PO SCH (10:02)
[2017-03-17] MEDS: Sodium Chloride 0.9% 1,000 ML IV SCH ×2 (10:08→15:42)
[2017-03-17] MEDS ORDERED: Piperacillin/Tazobactam 4.5 GM, Admixture Fee 1 EACH in Sodium Chloride 0.9% 100 ML IVPB SCH (12:00)
--- NOTE | 2017-03-17 16:15 | PRG ---
DATE OF SERVICE: 03/17/2017 SUBJECTIVE: Lainey Holloway is in no distress. She is feeling better, closer to her baseline. OBJECTIVE: VITAL SIGNS: She is afebrile. Heart rate is 101, respiratory rate is 18, oximetry is 96%, blood pr essure 135/64. LUNGS: Clear. HEART: Regular rhythm. ABDOMEN: Soft. IMPRESSION: Chronic obstructive pulmonary disease exacerbation, most likely secondary to continuing to smoke cocaine. PLAN: Simplify medications, anticipating discharge soon.
[2017-03-17] MEDS: Amoxicillin/Potassium Clav 875 MG TAB PO SCH (20:48)
[2017-03-17] MEDS: Simvastatin 20 MG TAB PO SCH (20:48)
[2017-03-18] MEDS: Sodium Chloride 0.9% 1,000 ML IV SCH (05:30)
[2017-03-18 05:33] VITALS: BMI 25.7
[2017-03-18] MEDS: Mometasone/Formoterol 120 PUFF INHALER INH SCH (07:42)
--- NOTE | 2017-03-18 07:49 | PDOC.FM ---
- Subjective Subjective: Patient is doing well this morning with no adverse events overnight. She expresses a desire to go home today. - Objective MAR Reviewed: Yes Vital Signs & Weight: Vital Signs (12 hours) Temp Pulse Resp BP Pulse Ox 03/18/17 07:41 98 16 98 03/18/17 07:34 97.3 F L 91 18 172/64 H 97 03/18/17 04:00 97.9 F 99 18 143/64 H 94 L 03/18/17 00:53 102 H 16 98 03/18/17 00:35 100 Weight Weight 59.602 kg I&O: 03/17/17 03/18/17 03/19/17 06:59 06:59 06:59 Intake Total 2880 Output Total 500 Balance 2380 Result Diagrams: 03/18/17 07:57 03/17/17 04:30 <Nicole Lopez - Last Filed: 03/18/17 08:37> - Objective Vital Signs & Weight: Vital Signs (12 hours) Temp Pulse Resp BP Pulse Ox 03/18/17 11:29 97.8 F 97 22 H 142/61 H 96 03/18/17 11:20 99 16 03/18/17 07:41 98 16 98 03/18/17 07:35 97.3 F L 91 18 97 03/18/17 07:34 97.3 F L 91 18 172/64 H 97 03/18/17 04:00 97.9 F 99 18 143/64 H 94 L Weight Weight 59.602 kg I&O: 03/17/17 03/18/17 03/19/17 06:59 06:59 06:59 Intake Total 2880 Output Total 500 Balance 2380 Result Diagrams: 03/18/17 07:57 03/17/17 04:30 <Lokesh Boudreaux - Last Filed: 03/18/17 15:16> Phys Exam - Physical Examination Constitutional: NAD Respiratory: clear to auscultation bilateral Cardiovascular: RRR Gastrointestinal: soft, non-tender Musculoskeletal: no edema Psychiatric: A&O x 3 <Nicole Lopez - Last Filed: 03/18/17 08:37> Dx/Plan (1) COPD exacerbation Code(s): J44.1 - CHRONIC OBSTRUCTIVE PULMONARY DISEASE W (ACUTE) EXACERBATION Status: Acute Plan: Improving. Plan to discharge patient today with antibiotics, steroids. Advised pt to take medications as directed in order to prevent future exacerbations. (2) Elevated creatine kinase Status: Chronic Plan: chronically elevated CK. pt is asymptomatic. further workup on an outpatient basis is warranted. (3) Hypertension Code(s): I10 - ESSENTIAL (PRIMARY) HYPERTENSION Status: Chronic Plan: BP stable. Continue current regimen. (4) Tobacco abuse Code(s): Z72.0 - TOBACCO USE Status: Chronic Plan: Counseling provided (5) Acute respiratory failure with hypoxia Code(s): J96.01 - ACUTE RESPIRATORY FAILURE WITH HYPOXIA Status: Resolved Plan: resolved. Pt no longer requiring NIPPV or supplemental oxygen. (6) Cocaine abuse Code(s): F14.10 - COCAINE ABUSE, UNCOMPLICATED Status: Chronic <Nicole Lopez - Last Filed: 03/18/17 08:37> Attending Addendum - Attending Addendum I personally evaluated the patient and discussed the management with Dr. Lopez. I agree with the History, Examination, Assessment and Plan documented above with any addition or exceptions noted below. Stable for discharge. <Lokesh Boudreaux - Last Filed: 03/18/17 15:16>
[2017-03-18 08:07] LABS: #Basophils 0.1 thou/uL (0.0-0.2); #Lymphocytes 4.4 thou/uL (1.20-3.40); #Neutrophils 9.4 thou/uL (1.40-6.50); %Basophils 0.4 % (0.0-1.0); %Eosinophils 0.2 % (0.0-10.0); %Lymphocytes 29.5 % (21.0-51.0); %Monocytes 6.7 % (0.0-10.0); Hematocrit 35.1 % (36.0-47.0); Mean Platelet Volume 8.2 fL (7.4-10.4); Red Blood Cell (RBC) Count 3.99 mill/uL (4.20-5.40); White Blood Cell (WBC) Count 14.8 thou/uL (4.8-10.8)
[2017-03-18] MEDS: Calcium Carbonate 500 MG ChewTAB PO PRN (09:42)
[2017-03-18] MEDS: predniSONE 20 MG TAB PO SCH (09:43)
[2017-03-18] MEDS: Losartan Potassium 25 MG TAB PO SCH (09:43)
[2017-03-18] MEDS: Amoxicillin/Potassium Clav 875 MG TAB PO SCH (09:44)
[2017-03-18 11:30] VITALS: BP 142/61; TEMP 97.8
--- NOTE | 2017-03-18 15:54 | PRG ---
DATE OF SERVICE: 03/18/2017 SUBJECTIVE: Lainey Holloway did well overnight. She wants to go home. OBJECTIVE: LUNGS: Clear. CARDIOVASCULAR: Regular rhythm. ABDOMEN: Soft. IMPRESSION: Chronic obstructive pulmonary disease exacerbation brought on bycocaine use (inhaled). PLAN: Discharge home, stay with a prednisone taper, avoidance of cocaine as I have explained to her its important.
--- NOTE | 2017-03-19 11:02 | DIS-2 ---
DATE OF ADMISSION: 03/16/2017 DATE OF DISCHARGE: 03/18/2017 RESIDENT: Nicole Lopez M.D., PGY-2 ADMITTING ATTENDING: Lokesh Boudreaux M.D. DISCHARGE ATTENDING: Lokesh Boudreaux M.D. CONSULT: Jaylen Romero M.D. PROCEDURES: None. PRIMARY DIAGNOSES: 1. Acute hypoxic respiratory failure, resolved. 2. Acute chronic obstructive pulmonary disease exacerbation. SECONDARY DIAGNOSES: 1. Hypertension. 2. Tobacco abuse. 3. Cocaine abuse. 4. Chronically elevated creatinine kinase. DISCHARGE MEDICATIONS: 1. Augmentin 875 mg p.o. q.12 hours, dispensed 6 tablets. 2. Tessalon 100 mg p.o. q.4 hours p.r.n. 3. Prednisone 40 mg p.o. daily, dispensed 3 tablets. 4. Nicotine patch 14 mg 1 patch daily. 5. Ranitidine 150 mg p.o. daily. 6. Aspirin 81 mg p.o. daily. 7. Advair 100/50 two puffs b.i.d. 8. Spiriva 1 puff b.i.d. 9. Ventolin 2 puffs b.i.d. 10. Zocor 20 mg p.o. q.p.m. 11. Tramadol 50 mg p.o. q.i.d. p.r.n. 12. Lisinopril 5 mg p.o. daily. DISCONTINUED MEDICATIONS: None. HOSPITAL COURSE: The patient is a 61-year-old -[place] female with a past history of COPD who came in with a chief complaint of dyspnea. The patient was found to be hypoxic and in significant respiratory distress and therefore was placed on BiPAP in the emergency department. She was admitted to the Intermediate Care Unit and continued on BiPAP overnight. She was treated with a standard regimen of p.o. steroids, bronchodilators and supplemental oxygen as needed. By the day of discharge, the patient was no longer requiring supplemental oxygen. Her respiratory status improved significantly; however, she continued to have sinus tachycardia likely secondary to dehydration as this did respond to fluids. Of note, patient's exacerbation is likely multifactorial and possibly related to cocaine abuse, improper use of medications and tobacco abuse. Extensive education was provided regarding all of these things as well, and patient expressed understanding. Pertinent labs include negative respiratory panel, negative blood cultures after 48 hours and negative influenza swab. Urine drug screen was positive for cocaine as well. DISPOSITION: Stable. DISCHARGE INSTRUCTIONS: 1. Location: Home. 2. Diet: Regular. 3. Activity: Ad iris. 4. Followup: The patient is to follow up with her primary care provider at [facility] in 3 days. CONRAD
== END 2017-03-18 14:15 | disposition home or self-care (01) | DRG 190 ==
LOC: ERS 01:00 → IMCU/EMU 04:21 → 2NO 23:24
PROVIDERS: ADMIT Family Medicine; ATTEND Family Medicine
PROC: 5A09357 Assistance with Respiratory Ventilation, Less than 24 Consecutive Hours, Continuous Positive Airway Pressure (ICD-10-PCS; principal; 2017-03-16)
DX: J44.1 Chronic obstructive pulmonary disease with (acute) exacerbation (principal); J96.01 Acute respiratory failure with hypoxia; I10 Essential (primary) hypertension; M43.10 Spondylolisthesis, site unspecified; E78.00 Pure hypercholesterolemia, unspecified; F17.211 Nicotine dependence, cigarettes, in remission; Z79.51 Long term (current) use of inhaled steroids; F14.10 Cocaine abuse, uncomplicated; E86.0 Dehydration
CPT/HCPCS: 36415; 71010; 71020; 80048; 80053; 80306; 82550; 82553; 82805; 83605; 83690; 84443; 84484; 85007; 85025; 85027; 87040; 87633; 87798; 90471; 90682; 93005; 94640; 94660; 96365; 96367; 96375; A4216; G0008; J0456; J0696; J1956; J2405; J2543; J2930; J3370; J3475; J7050; J7506; J7611; J7620; Q2036

== ENCOUNTER 2017-05-26 00:57 | Inpatient (IN) | payer OTHER ==
[2017-05-26] MEDS ORDERED: methylPREDNISolone Sod Succ/PF 125 MG/2 ML VIAL ONE (01:29)
[2017-05-26 01:40] LABS: #Eosinphils 0.1 thou/uL (0.0-0.7); #Lymphocytes 4.8 thou/uL (1.20-3.40); #Monocytes 0.8 thou/uL (0.11-0.59); #Neutrophils 5.7 thou/uL (1.40-6.50); %Basophils 0.3 % (0.0-1.0); %Lymphocytes 41.8 % (21.0-51.0); %Monocytes 7.2 % (0.0-10.0); %Neutrophils 49.7 % (42.0-75.0); Hemoglobin 10.7 g/dL (12.0-16.0); Mean Corpuscular HGB CONC 33.2 g/dL (32.0-36.0); Mean Corpuscular Hemoglobin 29.2 pg (27.0-31.0); Mean Platelet Volume 7.5 fL (7.4-10.4); Platelet Count 294 thou/uL (130-400); RBC Distribution Width 13.3 % (11.5-14.5); Red Blood Cell (RBC) Count 3.66 mill/uL (4.20-5.40); White Blood Cell (WBC) Count 11.4 thou/uL (4.8-10.8)
[2017-05-26 02:07] LABS: Anion Gap 10 mmol/L (10-20); BUN (Urea Nitrogen) 17 mg/dL (9.8-20.1); Calc. Creatinine Clearance 0 mL/min (70-130); Calcium 10.3 mg/dL (7.8-10.44); Carbon Dioxide 25 mmol/L (22-29); Chloride 111 mmol/L (98-107); Estimated GFR-MDRD 70; Glucose 128 mg/dL (70-105); Potassium 4.1 mmol/L (3.5-5.1); Sodium 142 mmol/L (136-145)
[2017-05-26 02:13] LABS: Troponin I 0.021 ng/mL (< 0.028)
[2017-05-26 02:17] LABS: CKMB 6.8 ng/mL (0-6.6)
[2017-05-26] MEDS ORDERED: Benzonatate 100 MG CAP PO PRN (04:40)
[2017-05-26] MEDS ORDERED: traMADol HCl 50 MG TAB PO PRN (04:40)
[2017-05-26] MEDS ORDERED: Ondansetron ODT 4 MG TAB PO PRN (04:52)
[2017-05-26] MEDS ORDERED: Acetaminophen 325 MG TAB PO PRN (04:52)
[2017-05-26] MEDS ORDERED: Albuterol Sulfate 2.5 mg/3 ml Neb NEB PRN (04:52)
[2017-05-26] MEDS ORDERED: Docusate 100 MG CAP PO PRN (04:52)
[2017-05-26] MEDS ORDERED: Guaifenesin DM 100-10/5 ML UDCUP PO PRN (04:52)
[2017-05-26 05:05] LABS: Troponin I 0.027 ng/mL (< 0.028)
[2017-05-26] MEDS ORDERED: PROVENTIL INHALER 6.7 G (200 INHALATIONS) INH SCH (06:30)
--- NOTE | 2017-05-26 06:43 | HP-2 ---
CODE STATUS: FULL. PRIMARY CARE PHYSICIAN: Dr. Lopez ATTENDING: Dr. Ya Tai RESIDENT: Sue Kapoor D.O. HISTORIAN: Patient. CHIEF COMPLAINT: Shortness of breath and cough. HISTORY OF PRESENT ILLNESS: The patient is a 61-year-old female with past medical history of drug ab use and COPD with a recent clinic visit 3 days ago for COPD exacerbation, presents with worsening rajesh rtness of breath. The patient was seen in clinic on 05/21/2017 and treated with azithromycin, DuoNeb s and prednisone for a COPD exacerbation. She reports she took all her medications and did not feel any better. She lives with a roommate who saw that she was having increased work of breathing and in creased cough who called for ambulance. On arrival, the patient was hypoxic and required BiPAP. She was placed on BiPAP for 1 hour and then was moved to nasal cannula at 2 liters. At the time of inte rview, the patient is fully interactive and reports she feels much better than when she first came in . She denies ill contacts and recent fever or head congestion, runny nose, sore throat. In the ER, she was given DuoNebs x1, methylprednisone 125 mg IV. PAST MEDICAL HISTORY: 1. Drug abuse. 2. Gastroesophageal reflux disease. 3. Systolic murmur. 4. Chronic obstructive pulmonary disease. 5. Hyperlipidemia. 6. Hypertension. PAST SURGICAL HISTORY: 1. x1. 2. Back surgery in 2012. 3. Colonoscopy with polypectomy in 2013. ALLERGIES: No known drug allergies. MEDICATIONS: The patient is unsure of medications, but per chart review are updated as clinic list. 1. Ranitidine 150 mg b.i.d. 2. Gabapentin 600 mg t.i.d., (questionable). 3. Combivent 20-100 mcg 2 puffs q.i.d. 4. Tramadol 50 mg q.i.d. p.r.n. 5. ProAir. 6. Spiriva 18 mcg 1 inhalation daily. 7. Advair 100/50 mcg 1 puff b.i.d. 8. Aspirin 81 mg. 9. Simvastatin 20 mg. 10. Lisinopril 5 mg daily. 11. Nicotine patch. FAMILY HISTORY: Aortic aneurysm in mom ,prostate cancer in father and coronary artery disease in bro ther. SOCIAL HISTORY: The patient recently quit tobacco use since 1 month ago, but used to smoke to anywhe re from 1-3 packs per day for 46 years. The patient does drink socially 1-2 times per week and admit s using crack cocaine, last used on 05/20/2017 prior to a COPD exacerbation. REVIEW OF SYSTEMS: GENERAL: The patient denies fever or chills. EYES: Denies eye pain. ENT: Denies nasal congestion, rhinorrhea or sore throat. RESPIRATORY: Reports productive cough with yellow sputum, chest congestion and shortness of breath. CARDIOVASCULAR: Reports occasional chest pain, but states it could be due to all of her coughing. N o palpitations or edema. GI: No nausea, vomiting, diarrhea or constipation. GENITOURINARY: Denies dysuria or polyuria. SKIN: Denies rashes or lesions. MUSCULOSKELETAL: Denies pain. NEURO: Denies weakness. The patient does report numbness in the right distal fingertips on occasion . PSYCHIATRIC: Denies anxiety, depression. PHYSICAL EXAMINATION: VITAL SIGNS: Blood pressure 110/70, pulse 99, respiratory rate 22, T-max 98.0, pulse ox 100% on the nasal cannula. Current weight 60.8 kilograms. GENERAL: The patient is alert and oriented x4, in no acute distress. Well-developed, appropriately interactive. EYES: EOMI, PERRLA. Conjunctivae within normal limits. ENT: Oropharynx within normal limits. Nasal mucosa within normal limits. NECK: Supple, without lymphadenopathy. CARDIOVASCULAR: Regular rate and rhythm. No murmurs. Radial pulses 2+. RESPIRATORY: Increased effort, no retractions. Clear to auscultation bilaterally. SKIN: Warm and dry. ABDOMEN: Soft, nontender. EXTREMITIES: No clubbing, cyanosis or edema. MUSCULOSKELETAL: Structure within normal, tone within normal limits. NEUROLOGIC: No focal deficits. PSYCHIATRIC: Appropriate. LABORATORY DATA: CBC; white blood cell count 11.4, hemoglobin 10.7, hematocrit 32.2, platelets 294, MCV 88, 49.7% neutrophils. Chemistries: Sodium 142, potassium 4.1, chloride 111, bicarbonate 25, BUN 17, creatinine 0.98, gluco se 128, GFR 70, calcium 10.3. CK-MB 6.8, troponin 0.021. Flu negative. EKG: Normal sinus rhythm with left ventricular hypertrophy, diffuse T-wave inversions. EKG unchange d from the most recent EKG. Chest x-ray is hyperinflated with bronchial cuffing and mild blunting of the costophrenic angles. ASSESSMENT AND PLAN: 1. Chronic obstructive pulmonary disease exacerbation, failed outpatient treatment, unclear of the c ause of exacerbation, but could be related to crack cocaine use, or being outside in cold weather as she reports she was outside when it was raining the other day for an extended period of time. We wang l give DuoNebs q.4 hours and albuterol q.2h. p.r.n., prednisone 40 mg daily. We will try on Levaquin 750 mg daily since failed azithromycin treatment. Right now requiring 2 liters of oxygen, not on an y oxygen at home. We will try to wean off oxygen since right now 100% on nasal cannula. 2. Hypertension. Continue to monitor and get home lisinopril. 3. Hyperlipidemia. We will continue to give Zocor. 4. Tobacco use. The patient denies tobacco use since 1 month ago. She is currently using nicotine patches. We will continue with the nicotine patches here in the hospital. 5. Cocaine abuse. I spoke in depth about quitting and consulted case management for possible resour guzman for a detox program which the patient is willing to try. Discussed Narcotics Anonymous meetings. The patient reports she has been through this before and they were not helpful. 6. Anemia likely secondary to anemia of chronic disease. 7. Gastroesophageal reflux disease. We will continue home Pepcid. 8. Chronic obstructive pulmonary disease. Continue home inhalers, Advair, and DuoNebs. 9. VTE prophylaxis. Lovenox. DISPOSITION AND LENGTH OF HOSPITAL STAY: 1-2 days. Symptomatic medications will be provided. History of physical exam was discussed with Dr. Tai.
[2017-05-26] MEDS ORDERED: Ipratropium Bromide 2.5 ml Neb NEB SCH (07:00)
[2017-05-26 08:06] LABS: Troponin I 0.028 ng/mL (< 0.028)
[2017-05-26] MEDS: Mometasone/Formoterol 120 PUFF INHALER INH SCH ×2 (08:24→19:27)
--- NOTE | 2017-05-26 08:31 | RAD ---
SINGLE VIEW OF THE CHEST: Comparison: 03-16-17 History: Shortness of breath for 3-4 days. Dyspnea. FINDINGS: Single view of the chest shows a normal sized cardiomediastinal silhouette. There is no evidence of c onsolidation, mass, or pleural effusion. The bones are unremarkable. IMPRESSION: No evidence of acute cardiopulmonary disease. POS: [facility]
[2017-05-26] MEDS ORDERED: FLUTICASONE INH SCH (09:00)
[2017-05-26] MEDS ORDERED: SALMETEROL INH SCH (09:00)
[2017-05-26] MEDS ORDERED: Non-Formulary Item 1 EACH (Ranitidine Hcl [Ranitidine Hcl] 150 MG) PO SCH (09:00)
[2017-05-26] MEDS ORDERED: Spiriva 18 MCG CAP (Box of 5 Caps) INH SCH (09:00)
[2017-05-26] MEDS ORDERED: Famotidine 20 MG TAB ONE (09:58)
[2017-05-26] MEDS ORDERED: predniSONE 20 MG TAB ONE (09:58)
[2017-05-26] MEDS ORDERED: Enoxaparin Sodium 40 MG/0.4 ML SYRINGE ONE (09:59)
--- NOTE | 2017-05-26 13:18 | HP ---
DATE OF SERVICE: 05/26/2017 CHIEF COMPLAINT: Shortness of breath and cough. HISTORY OF PRESENT ILLNESS: The patient is a 61-year-old female with the past medic al history of drug abuse and COPD, who presented as an outpatient to the clinic a few days ago with a COPD exacerbation. The patient was treated with azithromycin, DuoNebs, and prednisone, but she repo rts that she did not improve despite taking her medication. The patient did note using crack cocaine prior to the COPD exacerbation starting and this has triggered multiple COPD exacerbations in the [facility]. Upon arrival to the ER, the patient was initially placed on BiPAP due to being hypoxic for about an hour and then she was able to be transitioned to nasal cannula with oxygen at 2 liters. This mor bruna, the patient states she is feeling much better. Her breathing has improved. Her only concern t his morning was when she would be able to eat. In the ER, she was given DuoNebs and methylprednisolo ne. For the full past medical history, please see the resident's dictation. PHYSICAL EXAMINATION: VITAL SIGNS: Blood pressure 110/70, pulse 99, respiratory rate 22, O2 sat 100% on 2 liters nasal can nula, temperature 98.0. GENERAL: The patient is awake, alert, and oriented, in no acute distress. HEENT: Pupils are equal, round, reactive to light and accommodation. Extraocular muscles intact. ENT: Oropharynx and nasopharynx within normal limits without erythema. CARDIOVASCULAR: Regular rate and rhythm without murmurs, gallops, or rubs. RESPIRATORY: Clear to auscultation bilaterally without wheezing or rhonchi. The patient has normal effort and no retractions. ABDOMEN: Soft, nontender, nondistended with bowel sounds present. EXTREMITIES: There is no clubbing, cyanosis, or edema. LABORATORY DATA: 1. CBC: WBC 11.4, hemoglobin 10.7, hematocrit 32.2, platelet count 294. 2. BMP: Sodium 142, potassium 4.1, chloride 111, bicarbonate 25, BUN 17, creatinine 0.98, glucose 1 28, calcium 10.3, CK-MB 6.8. Troponin 0.21, then 0.27 than 0.28. 3. Chest x-ray showed no acute cardiopulmonary processes. ASSESSMENT AND PLAN: 1. Chronic obstructive pulmonary disease exacerbation with failed outpatient treatment. The patient will continue scheduled DuoNebs with albuterol as needed as well as prednisone. The patient will be changed to Levaquin. The patient will continue her oxygen and we will wean as tolerated. 2. Hypertension: Continue home medications. 3. Hyperlipidemia. Continue home statin. 4. Tobacco abuse: Continue nicotine patches as the patient appears to be trying to quit smoking. 5. Cocaine abuse: The patient has been counseled on the importance of stopping her drug use. We di scussed the continued risk of using cocaine. 6. For the full history and physical, assessment and plan, please see Dr. Kapoor's dictation. I hav e repeated the pertinent portions of the H&P myself and agree with her documentation.
[2017-05-26 16:51] VITALS: BMI 25.7
[2017-05-26] MEDS: Aspirin 81 mg Enteric Coated Tablet PO SCH (17:37)
[2017-05-26] MEDS: Famotidine 20 MG TAB PO SCH (17:37)
[2017-05-26] MEDS: Lisinopril 5 MG TAB PO SCH (17:37)
[2017-05-26] MEDS: Enoxaparin Sodium 40 MG/0.4 ML SYRINGE SC SCH (17:37)
[2017-05-26] MEDS: Nicotine 14 MG PATCH TD SCH (17:38)
[2017-05-26] MEDS: predniSONE 20 MG TAB PO SCH (17:38)
[2017-05-26] MEDS ORDERED: Simvastatin 20 MG TAB PO SCH (21:00)
[2017-05-27] MEDS ORDERED: Melatonin 3 MG TAB PO PRN (00:04)
[2017-05-27 05:21] LABS: Anion Gap 13 mmol/L (10-20); BUN (Urea Nitrogen) 16 mg/dL (9.8-20.1); Calc. Creatinine Clearance 61 mL/min (70-130); Calcium 10.7 mg/dL (7.8-10.44); Carbon Dioxide 25 mmol/L (22-29); Chloride 107 mmol/L (98-107); Estimated GFR-MDRD 74; Glucose 108 mg/dL (70-105); Potassium 4.2 mmol/L (3.5-5.1); Sodium 141 mmol/L (136-145)
[2017-05-27 05:58] LABS: Band 1 % (5-11); Hemoglobin 10.7 g/dL (12.0-16.0); Lymphocytes 17 % (21-51); MDiff Complete? YES; Mean Corpuscular HGB CONC 32.8 g/dL (32.0-36.0); Mean Corpuscular Volume 88.6 fl (81.0-99.0); Mean Platelet Volume 7.9 fL (7.4-10.4); Monocytes 2 % (0-10); Neutrophil 80 % (42-75); PLT Morphology Comment Appears Adequate; Platelet Count 293 thou/uL (130-400); RBC Distribution Width 13.6 % (11.5-14.5); RBC Morphology Normal; Red Blood Cell (RBC) Count 3.68 mill/uL (4.20-5.40); White Blood Cell (WBC) Count 23.7 thou/uL (4.8-10.8)
--- NOTE | 2017-05-27 08:24 | PDOC.FM ---
- Subjective Subjective: Pt feeling well today. States that she has improved SOB, denies cough or chest pain, and has no new symptoms. She states that she wants to quit using crack cocaine and wants to know about available options for help. There were no acute events over night. - Objective MAR Reviewed: Yes Vital Signs & Weight: Vital Signs (12 hours) Temp Pulse Resp BP Pulse Ox 05/27/17 04:00 97.9 F 97 20 129/66 99 05/27/17 00:10 98 05/27/17 00:00 98.4 F 107 H 22 H 114/50 L 98 Weight Weight 59.676 kg I&O: 05/26/17 05/27/17 05/28/17 06:59 06:59 06:59 Intake Total 750 Balance 750 Result Diagrams: 05/27/17 04:22 05/27/17 04:22 <Jv Quezada - Last Filed: 05/27/17 08:21> - Objective Vital Signs & Weight: Vital Signs (12 hours) Temp Pulse Resp BP BP BP Pulse Ox 05/27/17 12:33 98 F 91 16 146/48 H 94 L 05/27/17 08:37 90 120/52 L 05/27/17 08:30 98.3 F 92 16 120/52 L 95 05/27/17 08:29 90 20 93 L 05/27/17 08:00 98.3 F 90 16 98 05/27/17 04:00 97.9 F 97 20 129/66 99 Weight Weight 59.676 kg I&O: 05/26/17 05/27/17 05/28/17 06:59 06:59 06:59 Intake Total 750 Balance 750 Result Diagrams: 05/27/17 04:22 05/27/17 04:22 <Ya Tai - Last Filed: 05/27/17 13:09> Phys Exam - Physical Examination Constitutional: NAD HEENT: PERRLA, moist MMs Neck: no nodes, no JVD, supple Respiratory: clear to auscultation bilateral Cardiovascular: RRR, no significant murmur Gastrointestinal: soft, non-tender Musculoskeletal: no edema Neurological: non-focal Psychiatric: normal affect, A&O x 3 Skin: no rash <Jv Quezada - Last Filed: 05/27/17 08:21> Dx/Plan (1) COPD exacerbation Code(s): J44.1 - CHRONIC OBSTRUCTIVE PULMONARY DISEASE W (ACUTE) EXACERBATION Status: Acute (2) Hypercalcemia Code(s): E83.52 - HYPERCALCEMIA Status: Acute (3) Cocaine abuse Code(s): F14.10 - COCAINE ABUSE, UNCOMPLICATED Status: Chronic (4) Diastolic CHF, chronic Code(s): I50.32 - CHRONIC DIASTOLIC (CONGESTIVE) HEART FAILURE Status: Chronic (5) Elevated creatine kinase Status: Chronic (6) Hypertension Code(s): I10 - ESSENTIAL (PRIMARY) HYPERTENSION Status: Chronic - Plan Plan: 1. COPD exacerbation - pt has improved significantly from yesterday, will try to wean from O2 today - continue steroids and levaquin - possibly ready for dc this afternoon with close outpatient follow up 2. Cocaine abuse - discussed outpatient options to help her quit, pt is willing to consider therapy - fu with PCP 3. Hypercalcemia - currently asymptomatic - has been worked up in the past. Pt had normal PTH, TSH, Vit D. - consider PTHrP 4. Elevated CK - Likely from dehydration. Continues to trend downward - Follow value, encourage PO intake 5. Neutrophilia - 2/2 PO steroids 6. HTN - controlled on home meds 7. dCHF - pt at baseline - continue to monitor fluid status and O2 need <Jv Quezada - Last Filed: 05/27/17 08:21> Attending Addendum - Attending Addendum I personally evaluated the patient and discussed the management with Dr. Quezada. I agree with the History, Examination, Assessment and Plan documented above with any addition or exceptions noted below. The patient is much improved this morning. She is up walking the halls and O2 sats were 94-97% when we checked them. She is off O2. Her WBC did increase today which is likely due to steroid use. She has no tachycardia, fever or additional signs of infection. She will discharge home on antibiotics and steroids. She will f/u with Dr. Lopez to be set up with psychology for CBT for drug use. <Ya Tai - Last Filed: 05/27/17 13:09>
[2017-05-27] MEDS: Mometasone/Formoterol 120 PUFF INHALER INH SCH (08:31)
[2017-05-27] MEDS: Famotidine 20 MG TAB PO SCH (08:36)
[2017-05-27] MEDS: Aspirin 81 mg Enteric Coated Tablet PO SCH (08:36)
[2017-05-27] MEDS: Nicotine 14 MG PATCH TD SCH (08:36)
[2017-05-27] MEDS: Lisinopril 5 MG TAB PO SCH (08:37)
[2017-05-27] MEDS: Enoxaparin Sodium 40 MG/0.4 ML SYRINGE SC SCH (08:37)
[2017-05-27] MEDS: predniSONE 20 MG TAB PO SCH (08:37)
[2017-05-27 12:34] VITALS: BP 146/48; TEMP 98
--- NOTE | 2017-05-27 22:56 | DIS-2 ---
DATE OF ADMISSION: 05/26/2017 DATE OF DISCHARGE: 05/27/2017 RESIDENT: Jv Quezada DO DISCHARGE ATTENDING: Ya Tai M.D. DISCHARGE ATTENDING: Ya Tai M.D. CONSULTATIONS: None. PROCEDURES: None. PRIMARY DIAGNOSIS: Chronic obstructive pulmonary disease exacerbation. SECONDARY DIAGNOSES: Drug abuse, hyperlipidemia, hypertension, chronic obstructive pulmonary disease, gastroesophageal reflux disease, elevated CK-MB, diastolic congestive heart failure, hypercalcemia. DISCHARGE MEDICATIONS: Lisinopril 5 mg p.o. daily, tramadol 50 mg p.o. q.i.d. p.r.n. pain, simvastatin 20 mg p.o. daily, Ventolin HFA 2 puffs INH t.i.d., Spiriva 1 puff INH b.i.d., aspirin 81 mg p.o. daily, nicotine patch 14 mg 1 patch TD q.i.d., Advair 1 puff INH daily, Atrovent 1 barbra INH p.r.n., prednisone 40 mg p.o. daily x5 and Levaquin 750 mg p.o. daily x7. DISCONTINUED MEDICATIONS: AZITHROMYCIN. HOSPITAL COURSE: The patient was admitted with a COPD exacerbation. This was after having failed outpatient treatment of azithromycin and prednisone. The patient had increased oxygen need from baseline which she typically needs none. Over the course of her hospitalization, she was switched to Levaquin from azithromycin due to previous failure and was given steroids and as needed DuoNebs. She was quickly able to be weaned off of oxygen and by the second day of admission, needed no oxygen and was breathing well on her own. The patient associated this COPD exacerbation with abuse of crack cocaine. This is the first time that she has been admitted with COPD exacerbation after having used crack cocaine. She states that she is ready to quit drug abuse and is looking for help from outpatient setting. The patient was informed that there is help available in the outpatient setting from her clinic at [facility]. It was recommended that when she follows up from her hospital stay with her normal PCP, this referral could be made. It was noted that the patient did have elevated calcium. This has been worked up in the past and has had a normal PTH, TSH and vitamin D levels in the past when this was worked up, so unable to find additional workup to include PTHrP or other less common causes. I recommend that this workup continue outpatient. The patient also did have an elevated CK-MB initially, total CK was drawn that was elevated as well which is like source of the elevated CK-MB. This is most likely secondary to dehydration. CK continued to trend downward while admitted , is also recommended that this be continued to follow in the outpatient setting. The patient was sent home on a week's worth of antibiotics and steroids and was instructed to follow up with PCP in a week. DISPOSITION: Stable. DISCHARGE INSTRUCTIONS: 1. Location: Home. 2. Diet: Heart healthy. 3. Activity: Ad-iris. 4. Follow up with PCP, Dr. Nicole Lopez within 1 week. CONRAD
== END 2017-05-27 13:30 | disposition home or self-care (01) | DRG 191 ==
LOC: ERS 00:57 → ERHOLD 03:10 → OBSVTOIN 03:10 → T4-A 16:40
PROVIDERS: ADMIT Family Medicine; ATTEND Family Medicine
DX: J44.1 Chronic obstructive pulmonary disease with (acute) exacerbation (principal); I50.30 Unspecified diastolic (congestive) heart failure; E83.52 Hypercalcemia; D72.0 Genetic anomalies of leukocytes; D71 Functional disorders of polymorphonuclear neutrophils; E86.0 Dehydration; D63.8 Anemia in other chronic diseases classified elsewhere; E78.5 Hyperlipidemia, unspecified; R09.02 Hypoxemia; K21.9 Gastro-esophageal reflux disease without esophagitis; F14.10 Cocaine abuse, uncomplicated; F17.210 Nicotine dependence, cigarettes, uncomplicated; Z82.49 Family history of ischemic heart disease and other diseases of the circulatory system; Z80.42 Family history of malignant neoplasm of prostate; T38.0X5A Adverse effect of glucocorticoids and synthetic analogues, initial encounter
CPT/HCPCS: 36415; 71045; 80048; 82550; 82553; 84484; 85025; 93005; 94640; 94644; 94660; 96372; 96374; 96375; J1650; J1956; J2930; J7506; J7620

== ENCOUNTER 2017-07-01 08:32 | Outpatient (CLI) | payer OTHER | END 2017-07-01 08:33 | disposition home or self-care (01) | LOC: BICMAMMO 08:32 | PROVIDERS: ATTEND Family Medicine | DX: Z12.31 Encounter for screening mammogram for malignant neoplasm of breast (principal); Z80.3 Family history of malignant neoplasm of breast | CPT/HCPCS: 77067 ==

== ENCOUNTER 2017-08-19 17:24 | Emergency (ER) | payer OTHER ==
[2017-08-19 18:07] LABS: Actual Bicarbonate (HCO3a) 22.8 mEq/L (22-26); CO2 Tension 39.1 mmHg (35.0-45.0); O2 Tension (PaO2) 71.8 mmHg (80.0-100.0); pH, Arterial 7.38 (7.35-7.45)
[2017-08-19 18:08] LABS: Analyzer IN Cardio ER; Calcium, Ionized 1.3 mmol/L (1.12-1.30); Hematocrit-ABG 37.7 % (36.0-47.0); Hemoglobin (Hb) 12.7 g/dL (12.0-16.0); Puncture Site RBA
[2017-08-19 18:09] LABS: ALV-art Gradient 78.965 (0-20)
--- NOTE | 2017-08-19 18:17 | RAD ---
SINGLE VIEW OF THE CHEST: 08/19/17 COMPARISON: 05/26/17 HISTORY: COPD exacerbation. FINDINGS: Single view of the chest shows a normal sized cardiomediastinal silhouette. There is no evidence of c onsolidation, mass, or pleural effusion. The bones are unremarkable. IMPRESSION: No evidence of acute cardiopulmonary disease. POS: [facility]
[2017-08-19 18:32] LABS: #Basophils 0.1 thou/uL (0.0-0.2); #Eosinphils 0.1 thou/uL (0.0-0.7); #Lymphocytes 2.3 thou/uL (1.20-3.40); #Monocytes 0.5 thou/uL (0.11-0.59); %Basophils 0.6 % (0.0-1.0); %Eosinophils 0.8 % (0.0-10.0); %Lymphocytes 20.8 % (21.0-51.0); %Monocytes 4.3 % (0.0-10.0); %Neutrophils 73.6 % (42.0-75.0); Hemoglobin 13.4 g/dL (12.0-16.0); Mean Corpuscular HGB CONC 33.4 g/dL (32.0-36.0); Mean Corpuscular Hemoglobin 28.1 pg (27.0-31.0); Mean Corpuscular Volume 84.4 fl (81.0-99.0); Mean Platelet Volume 7.9 fL (7.4-10.4); Platelet Count 290 thou/uL (130-400); RBC Distribution Width 13.7 % (11.5-14.5); Red Blood Cell (RBC) Count 4.74 mill/uL (4.20-5.40); White Blood Cell (WBC) Count 10.9 thou/uL (4.8-10.8)
[2017-08-19 18:53] LABS: ALT (SGPT) 19 U/L (8-55); AST (SGOT) 23 U/L (5-34); Alkaline Phosphatase 99 U/L (40-150); Anion Gap 12 mmol/L (10-20); BUN (Urea Nitrogen) 22 mg/dL (9.8-20.1); Bilirubin, Total 0.2 mg/dL (0.2-1.2); Calc. Creatinine Clearance 0 mL/min (70-130); Calcium 9.4 mg/dL (7.8-10.44); Carbon Dioxide 23 mmol/L (22-29); Chloride 112 mmol/L (98-107); Estimated GFR-MDRD 68; Globulin 3.1 g/dL (2.4-3.5); Glucose 119 mg/dL (70-105); Protein, Total 7.1 g/dL (6.0-8.3); Sodium 143 mmol/L (136-145)
[2017-08-19 18:57] LABS: Troponin I 0.067 ng/mL (< 0.028)
[2017-08-19 19:01] LABS: CKMB 8.7 ng/mL (0-6.6)
== END 2017-08-19 19:58 | disposition left against medical advice (07) ==
LOC: ERS 17:24
DX: J44.1 Chronic obstructive pulmonary disease with (acute) exacerbation (principal); I49.9 Cardiac arrhythmia, unspecified; E78.5 Hyperlipidemia, unspecified; I10 Essential (primary) hypertension; F17.200 Nicotine dependence, unspecified, uncomplicated; Z79.82 Long term (current) use of aspirin; Z79.899 Other long term (current) drug therapy; Z79.891 Long term (current) use of opiate analgesic
CPT/HCPCS: 36415; 71045; 80053; 82553; 82805; 84484; 85025; 93005; 94660

== ENCOUNTER 2017-08-20 15:37 | Observation (INO) | payer OTHER ==
[2017-08-20 15:56] VITALS: BMI 26.1
[2017-08-20] MEDS ORDERED: Acetaminophen 325 MG TAB PO PRN (16:51)
[2017-08-20] MEDS ORDERED: Nitroglycerin 0.4 MG TAB (25 Tab Bottle) PO PRN (16:51)
--- NOTE | 2017-08-20 17:03 | PDOC.FPRHP ---
- History of Present Illness Chief Complaint: Chest pain History of Present Illness: 61 yo F w hx of COPD, HTN, HLD, GERD, cocaine abuse presents from clinic with chief complaint of SOB and chest pain for 2 weeks duration. She was seen in the ED yesterday after an acute worsening of symptom. She was given 1 dose of prednisone and O2 support. It was recommended that she be admitted, however left AMA dt not having child care counselor. She presented in clinic today to a previously scheduled visit and had continued symptoms. It was decided that she should go back to the hospital with concern of COPD exacerbation and ACS. Today she complains of continued SOB and a "twinge " chest pain that is not reproducible with palpation and does not radiate. It is made worse with activity. She denies other symptoms such as headache, dizziness, peripheral weakness. - Allergies/Adverse Reactions Allergies Allergy/AdvReac Type Severity Reaction Status Date / Time No Known Allergies Allergy Verified 08/20/17 16:25 - Home Medications Medication Instructions Recorded Confirmed Type Lisinopril 5 mg PO DAILY 06/23/14 08/20/17 History traMADol HCl [Tramadol HCl] 50 mg PO QID PRN 08/01/15 08/20/17 History Simvastatin [Zocor] 20 mg PO QPM #0 tab 08/07/15 08/20/17 Rx Tiotropium [place] [Spiriva] 1 puff INH BID 02/19/17 08/20/17 History Ventolin HFA Inhaler 2 puff INH TID 02/19/17 08/20/17 History Aspirin [Ecotrin Low Strength] 81 mg PO DAILY #90 tab 02/20/17 08/20/17 Rx Benzonatate [Tessalon] 100 mg PO Q4H PRN #30 cap 03/18/17 08/20/17 Rx Fluticasone/Salmeterol [Advair 1 puff INH DAILY 05/26/17 08/20/17 History Diskus 100/50] Ipratropium [place] [Atrovent] 1 ampule INH PRN PRN 05/26/17 08/20/17 History predniSONE 40 mg PO DAILY #5 tab 05/27/17 08/20/17 Rx Gabapentin 600 mg PO HS 08/20/17 08/20/17 History predniSONE 40 mg PO QAM-WM #3 tab 08/21/17 Rx - History PMHx: COPD HTN HLD GERD PSHx: CSX Back Sx FHx: Maternal Cerebral aneurism Paternal HTN Social: Former smoker 100 pack year hx Etoh none Cocaine use, last use 3 days ago - Review of Systems General: denies: fever/chills, weight/appetite/sleep changes, night sweats Eyes: denies: vision changes ENT: denies: nasal congestion Respiratory: reports: cough (Clear sputum), shortness of breath, exercise intolerance. denies: congestion Cardiovascular: reports: chest pain (does not radiate). denies: palpitation, edema Gastrointestinal: denies: nausea, vomiting Genitourinary: denies: dysuria, polyuria Skin: denies: rashes, lesions Musculoskeletal: denies: pain, tenderness Neurological: denies: numbness, syncope Psychological: denies: anxiety, depression - Vital signs BP: 139/90 HR: 88 RR: 18 Tmax: 98.2 Pox: 95% on RA Wt: 60 kg - Physical Exam Constitutional: NAD, awake, alert and oriented HEENT: normocephalic and atraumatic, PERRLA, EOMI Neck: supple, FROM, trachea midline Chest: no-tender to palpation Heart: RRR, normal S1/S2, no murmurs/rubs/gallops, no edema Lungs: CTAB, no respiratory distress, good air movement, no wheezing Abdomen: soft, non-tender, bowel sounds present Musculoskeletal: normal tone, ROM grossly normal Neurological: no focal deficit, CN II-XII intact Skin: no rash/lesions, good turgor Heme/Lymphatic: no unusual bruising or bleeding Psychiatric: normal mood and affect FMR H&P: Results - Labs Result Diagrams: 08/21/17 04:51 08/21/17 04:51 Additional comment: Pt was direct admitted. Labs pending at time of this H&P - EKG Interpretation EKG: NSR, LVH, deep symmetric inverted T waves in V3-5. No ST change FMR H&P: A/P - Problem List (1) Atypical chest pain Status: Acute Priority: High Code(s): R07.89 - OTHER CHEST PAIN (2) COPD exacerbation Status: Acute Priority: Medium Code(s): J44.1 - CHRONIC OBSTRUCTIVE PULMONARY DISEASE W (ACUTE) EXACERBATION (3) GERD (gastroesophageal reflux disease) Status: Chronic Priority: Low Code(s): K21.9 - GASTRO-ESOPHAGEAL REFLUX DISEASE WITHOUT ESOPHAGITIS (4) Cocaine abuse Status: Chronic Priority: Low Code(s): F14.10 - COCAINE ABUSE, UNCOMPLICATED (5) HLD (hyperlipidemia) Status: Chronic Priority: Low Code(s): E78.5 - HYPERLIPIDEMIA, UNSPECIFIED (6) Hypertension Status: Chronic Priority: Medium Code(s): I10 - ESSENTIAL (PRIMARY) HYPERTENSION - Plan Atypical chest pain - tele obs - Trend trops, EKG - HEART score of 4, no recent stress test. Will order for am - hold beta blockers dt stress test and cocaine use - Fasting lipid panel - Atorvastatin - ASA - Nitro PRN COPD exacerbation, mild without hypoxia - Continue prednisone - continue home meds - duoneb/O2 prn HTN - continue home meds HLD - statin as above GERD - continue home meds Cocaine use - hold beta blockers as above DVT PPx - Scd, frequent ambulation Code full Diet Heart healthy, npo at midnight Dispo: Pt stable, obs tonight and likely dc after stress test tomorrow FMR H&P: Upper Level - Pertinent history 61 yo F w hx of COPD, HTN, HLD, and cocaine abuse presents as a direct admit from PCP clinic for eval of twinging chest pain for 2 weeks duration. She was seen in the ED yesterday 2/2 acute worsening of symptom w/ SOB. She was given 1 dose of prednisone and on Bipap but left AMA. Still endorsing CP at PCP office today. HEART of 4 and no hx of workup. Direct admit for ACS r/o - Pertinent findings Lungs CTA-BL. Pain non-reproducible. RRR. No JVD, no lower ext edema - Plan Date/Time: 08/20/17 1702 I, Dr. Dontae Soto, have evaluated this patient and agree with findings/plan as outlined by internet marketing director resident. Pertinent changes/additions are listed here. 61 y/o F w/: 1. Atypical chest pain - Trend cardiac enzymes, EKG at baseline. Concern for possible wellen's. Will consult cards if trops bump - HEART score of 4, Stress in AM. NPO at midnight - UDS 2/2 hx of cocaine use - Fasting lipid panel, TSH, mag, phos - Atorvastatin - ASA - Nitro PRN 2. COPD exacerbation, mild without hypoxia - Continue prednisone - continue home meds - duoneb/O2 prn 3. HTN - continue home meds 4. HLD - statin as above 5. GERD - continue home meds 6. Cocaine use - UDS Attending Addendum - Attending Addendum Date/Time: 08/22/17 [id number] I personally evaluated the patient and discussed the management with Dr. Quezada and Brittany. I agree with the History, Examination, Assessment and Plan documented above with any addition or exceptions noted below.
[2017-08-20] MEDS ORDERED: PROVENTIL INHALER 6.7 G (200 INHALATIONS) INH PRN (17:27)
[2017-08-20] MEDS ORDERED: predniSONE 20 MG TAB PO SCH ×2 (17:45→20:30)
[2017-08-20 17:54] LABS: Cardiac Risk 2.2 (Less than 4.5)
[2017-08-20 19:04] LABS: Phosphorus 2.6 mg/dL (2.3-4.7)
[2017-08-20] MEDS: Mometasone/Formoterol 120 PUFF INHALER INH SCH (19:08)
[2017-08-20 19:11] LABS: Troponin I 0.066 ng/mL (< 0.028)
[2017-08-20 19:32] LABS: Amphetamine Not Detected (NotDetected); Barbiturates Screen Not Detected (NotDetected); Benzodiazepine Screen Not Detected (NotDetected); Cocaine Metabolite Screen Detected (NotDetected); Medtox Control Line Valid? VALID (VALID); Medtox Reader # READER 1; Methadone Not Detected (NotDetected); Methamphetamine Not Detected (NotDetected); Opiate Screen Not Detected (NotDetected); Oxycodone Screen Not Detected (NotDetected); Phencyclidine (PCP) Not Detected (NotDetected); THC/Cannabinoid Screen Not Detected (NotDetected); Tricyclic Screen Not Detected (NotDetected)
[2017-08-20] MEDS ORDERED: Atorvastatin Calcium 40 MG TAB PO SCH (21:00)
[2017-08-20] MEDS ORDERED: Gabapentin 300 MG CAP PO SCH (21:15)
[2017-08-20 21:38] LABS: Troponin I 0.056 ng/mL (< 0.028)
[2017-08-20] MEDS: Mag-Al 1200 mg/1200 mg/30 ML UDCUP PO PRN (21:59)
[2017-08-21] MEDS ORDERED: cloNIDine 0.1 MG TAB PO PRN (00:32)
[2017-08-21] MEDS ORDERED: Lisinopril 5 MG TAB PO SCH ×2 (00:45→09:00)
[2017-08-21 00:48] LABS: Troponin I 0.051 ng/mL (< 0.028)
[2017-08-21] MEDS: Ipratropium Bromide 2.5 ml Neb NEB SCH ×3 (01:00→13:55)
[2017-08-21 05:07] LABS: #Lymphocytes 1.2 thou/uL (1.20-3.40); #Monocytes 0.2 thou/uL (0.11-0.59); #Neutrophils 10.8 thou/uL (1.40-6.50); %Basophils 0.1 % (0.0-1.0); %Eosinophils 0.1 % (0.0-10.0); %Lymphocytes 9.5 % (21.0-51.0); %Monocytes 1.4 % (0.0-10.0); %Neutrophils 88.8 % (42.0-75.0); Hemoglobin 12.4 g/dL (12.0-16.0); Mean Corpuscular Hemoglobin 30.1 pg (27.0-31.0); Mean Corpuscular Volume 86.2 fl (81.0-99.0); Mean Platelet Volume 8.4 fL (7.4-10.4); Platelet Count 254 thou/uL (130-400); RBC Distribution Width 13.9 % (11.5-14.5); Red Blood Cell (RBC) Count 4.11 mill/uL (4.20-5.40); White Blood Cell (WBC) Count 12.2 thou/uL (4.8-10.8)
[2017-08-21 05:27] LABS: Anion Gap 12 mmol/L (10-20); BUN (Urea Nitrogen) 19 mg/dL (9.8-20.1); Calc. Creatinine Clearance 67 mL/min (70-130); Carbon Dioxide 25 mmol/L (22-29); Chloride 108 mmol/L (98-107); Estimated GFR-MDRD 83; Glucose 137 mg/dL (70-105); Potassium 4.6 mmol/L (3.5-5.1); Sodium 140 mmol/L (136-145)
[2017-08-21] MEDS: Mometasone/Formoterol 120 PUFF INHALER INH SCH (07:14)
[2017-08-21] MEDS ORDERED: Regadenoson 0.4 MG/5 ML SYRINGE ONE (07:24)
[2017-08-21] MEDS ORDERED: predniSONE 20 MG TAB PO SCH (08:00)
[2017-08-21] MEDS ORDERED: Lisinopril 10 MG TAB PO SCH (09:00)
[2017-08-21] MEDS ORDERED: Aspirin 81 mg Enteric Coated Tablet PO SCH (09:00)
[2017-08-21] MEDS ORDERED: Enoxaparin Sodium 40 MG/0.4 ML SYRINGE SC SCH (09:00)
--- NOTE | 2017-08-21 09:36 | PDOC.FM ---
- Subjective Subjective: 61 yo F w/hx of COPD, HTN, HLD, and cocain abuse here for mild COPD exacerbation and atypical chest pain. Today pt states that she feels better than yesterday after having 2 day of steroids. Today she has no specific complaints. She admits to some cough, however it is improved. She denies SOB, chest pain, fever/chills, n/v. There were no acute events over night. - Objective MAR Reviewed: Yes Vital Signs & Weight: Vital Signs (12 hours) Temp Pulse Resp BP BP Pulse Ox 08/21/17 07:14 86 12 08/21/17 07:05 86 12 08/21/17 03:15 98.1 F 100 16 142/63 H 91 L 08/21/17 00:55 82 08/21/17 00:20 82 20 08/21/17 00:06 91 183/75 H 08/20/17 23:48 98.4 F 91 16 196/77 H 92 L Weight Weight 59.92 kg I&O: 08/20/17 08/21/17 08/22/17 06:59 06:59 06:59 Intake Total 960 Output Total 1400 Balance -440 Result Diagrams: 08/21/17 04:51 08/21/17 04:51 <Jv Quezada - Last Filed: 08/21/17 09:33> - Objective Vital Signs & Weight: Vital Signs (12 hours) Temp Pulse Resp BP BP Pulse Ox 08/21/17 14:16 98.5 F 95 18 168/73 H 95 08/21/17 13:55 80 12 08/21/17 10:39 98 F 80 17 131/58 L 98 08/21/17 10:26 98 F 80 17 08/21/17 07:14 86 12 08/21/17 07:05 86 12 Weight Weight 59.92 kg I&O: 08/20/17 08/21/17 08/22/17 06:59 06:59 06:59 Intake Total 960 480 Output Total 1400 Balance -440 480 Result Diagrams: 08/21/17 04:51 08/21/17 04:51 <Lilia Rossi - Last Filed: 08/21/17 16:24> Phys Exam - Physical Examination Constitutional: NAD HEENT: moist MMs, sclera anicteric Neck: supple Respiratory: clear to auscultation bilateral Cardiovascular: RRR, no significant murmur Gastrointestinal: soft, non-tender, no distention, positive bowel sounds Musculoskeletal: no edema Neurological: non-focal, normal sensation, moves all 4 limbs Psychiatric: normal affect, A&O x 3 Skin: no rash <Jv Quezada - Last Filed: 08/21/17 09:33> Dx/Plan (1) Atypical chest pain Code(s): R07.89 - OTHER CHEST PAIN Status: Acute (2) COPD exacerbation Code(s): J44.1 - CHRONIC OBSTRUCTIVE PULMONARY DISEASE W (ACUTE) EXACERBATION Status: Acute (3) GERD (gastroesophageal reflux disease) Code(s): K21.9 - GASTRO-ESOPHAGEAL REFLUX DISEASE WITHOUT ESOPHAGITIS Status: Chronic (4) Cocaine abuse Code(s): F14.10 - COCAINE ABUSE, UNCOMPLICATED Status: Chronic (5) HLD (hyperlipidemia) Code(s): E78.5 - HYPERLIPIDEMIA, UNSPECIFIED Status: Chronic (6) Hypertension Code(s): I10 - ESSENTIAL (PRIMARY) HYPERTENSION Status: Chronic - Plan Plan: Atypical chest pain - tele obs - Trops down trending - HEART score of 4, no recent stress test. Scheduled for today - hold beta blockers dt stress test and cocaine use - Atorvastatin - ASA COPD exacerbation, mild without hypoxia - Continue prednisone, pt has had significant improvement. This is the likely cause of her bump in WBC count this am - continue home meds - duoneb/O2 prn HTN - continue home meds HLD - statin as above GERD - continue home meds Cocaine use - hold beta blockers as above DVT PPx - Scd, frequent ambulation Code full Diet Heart healthy, npo at midnight Dispo: Pt stable, likely dc today pending results of her stress test. <Jv Quezada - Last Filed: 08/21/17 09:33> Attending Addendum - Attending Addendum Date/Time: 08/21/17 1620 I personally evaluated the patient and discussed the management with Dr. Quezada and Dr. Walker I agree with the History, Examination, Assessment and Plan documented above with any addition or exceptions noted below. 61 yo female with multiple medical conditions admitted for ACS rule out. HD#1 Feeling fine this morning. No pain. Atypical CP: Stress negative. CP likely cocaine induced. Addressed with patient. Diastolic HF: restrictive pattern. Also cocaine induced. COPD: Patient perfers to inhale cocaine discussed risk for worsening COPD and causing pulm HTN Ok to d/c patient to home. Last use 3 days ago. VS stable. Flex <Lilia Rossi - Last Filed: 08/21/17 16:24>
--- NOTE | 2017-08-21 10:56 | NM ---
CARDIAC SPECT: CLINICAL HISTORY: 61-year-old female with shortness of breath, COPD, asthma, hypertension, and dyslipidemia. Smoker. TECHNIQUE: A myocardial perfusion scan was performed using the single isotope one day protocol with technetium-9 9m sestamibi. 10 mCi were injected intravenously for the rest exam followed by 32 mCi for the stress exam. Pharmacologic stress with Lexiscan was monitored and interpreted by Dr. Sommer. FINDINGS: Homogeneous tracer distribution is seen in the myocardial segments on stress and rest images without fixed or reversible defects. GATED SPECT LVEF: 61%. WALL MOTION EXAM: Normal. IMPRESSION: Normal myocardial perfusion scan. POS: [facility]
--- NOTE | 2017-08-21 12:48 | STRESS ---
Acquisition Time: 2017-08-21 09:15:12 Total Exercise Time: 00:01:00 Test Indications: SHORTNESS OF BREATH Medications: Protocol: LEXISCAN Max HR: 104 BPM 65% of Pred: 160 BPM Max BP: 128/052 mmHG Max Work Load: 1.0 METS THE PATIENT WAS INJECTED WITH LEXISCAN. SHE DID NOT DEVELOP CHEST PAIN. THE ECG WAS ABNORMAL AT BASELINE. AWAIT NUCLEAR IMAGES FOR DEFINITIVE DIAGNOSIS. Confirmed by NADEEN BONE ([id number]), book editor ZACHERY CALABRESE ([id number]) on 08/21/2017 12:47:31 PM Referred By: MD Leticia PITTMAN Confirmed By:NADEEN BONE
[2017-08-21] MEDS: Mag-Al 1200 mg/1200 mg/30 ML UDCUP PO PRN (13:42)
[2017-08-21 14:21] VITALS: BP 168/73; TEMP 98.5
[2017-08-21] MEDS ORDERED: Gabapentin 300 MG CAP PO SCH (21:00)
--- NOTE | 2017-08-22 00:40 | DIS-2 ---
DATE OF ADMISSION: 08/20/2017 DATE OF DISCHARGE: 08/21/2017 RESIDENT: Jv Quezada D.O. ADMITTING ATTENDING: Ronald Blanco M.D. DISCHARGE ATTENDING: Lilia Rossi M.D. CONSULTATIONS: None. PROCEDURES: Cardiolite stress test with results of ejection fraction of 61%, normal myocardial perfusion. Normal stress test. PRIMARY DIAGNOSES: 1. Atypical chest pain. 2. Mild congestive heart failure exacerbation. SECONDARY DIAGNOSES: 1. Gastroesophageal reflux disease. 2. Hyperlipidemia. 3. Hypertension. 4. Cocaine abuse. 5. Chronic obstructive pulmonary disease. DISCONTINUED MEDICATIONS: None. DISCHARGE MEDICATIONS: Lisinopril 5 mg p.o. daily, tramadol 50 mg p.o. q.i.d. p.r.n., Zocor 20 mg p.o. q.a.m., Ventolin HFA 2 puffs inhaled t.i.d. p.r.n. for shortness of breath, Spiriva 1 puff b.i.d., aspirin 81 mg p.o. daily, Tessalon 100 mg p.o. q.4 p.r.n. for cough, Advair 100/50 one puff daily, Atrovent 0.5/ 2.5 mL nebulized, 1 nebulized p.r.n. for shortness of breath; prednisone 20 mg p.o. daily x3 days, Gabapentin 600 mg p.o. at bedtime. HOSPITAL COURSE: This is a 61-year-old female who was directly admitted from clinic with a COPD exacerbation and atypical chest pain. She had been seen the previous day in the emergency room with similar diagnoses, gave her oxygen support and gave her prednisone, however, the patient left [place] due to not having care for her grandchildren the next day from clinic. She agreed to be directly admitted. When admitted, the patient was not hypoxic, she did complain of a twinge type chest pain that worsened with exertion. She also complained of worsening cough with clear sputum. She denied fever, chills, nausea, vomiting or diarrhea. She was admitted for mild COPD exacerbation and atypical chest pain. Regarding COPD, she was put on scheduled nebs and prednisone. She quickly improved by the next morning and she stated that she felt respiring at her baseline. She was saturating in the high 90s on room air. Regarding the atypical chest pain, troponins trended and were indeterminate; however, down trending by the 3rd check with final value being 0.51 previous to being 0.066 and 0.056 respectively. A Cardiolite stress test was conducted as noted above. This was normal. The patient will need to follow up in outpatient setting for continued management of COPD and her other comorbidities. It was noted while the patient was here that she was hypertensive and overnight needed to be treated with clonidine; however, during the following day, the patient had 2 normal range blood pressures. The patient was able to discharge home at that time. DISPOSITION: Stable. DISCHARGE INSTRUCTIONS: 1. Location: Home. 2. Diet: Heart healthy. 3. Activity: Ad iris. 4. Followup: With PCP, Dr. Nicole Lopez within the week. CONRAD
== END 2017-08-21 14:22 | disposition home or self-care (01) ==
LOC: 2SW 15:37
PROVIDERS: ADMIT Emergency Medicine; ATTEND Emergency Medicine
DX: R07.89 Other chest pain (principal); J44.1 Chronic obstructive pulmonary disease with (acute) exacerbation; I11.0 Hypertensive heart disease with heart failure; I50.9 Heart failure, unspecified; E78.5 Hyperlipidemia, unspecified; K21.9 Gastro-esophageal reflux disease without esophagitis; F14.10 Cocaine abuse, uncomplicated; Z87.891 Personal history of nicotine dependence; Z79.82 Long term (current) use of aspirin; Z79.52 Long term (current) use of systemic steroids; Z79.51 Long term (current) use of inhaled steroids; Z79.899 Other long term (current) drug therapy
CPT/HCPCS: 36415; 71045; 78452; 80048; 80053; 80061; 80306; 82553; 82805; 83735; 84100; 84443; 84484; 85025; 93005; 93010; 93017; 94640; 94660; 96372; 99406; A9500; G0378; J1650; J2785; J7506; J7620; J7644

== ENCOUNTER 2017-09-14 07:25 | Inpatient (IN) | payer OTHER ==
[2017-09-14] MEDS ORDERED: Propofol 1,000 MG/100 ML VIAL IV ONE (07:46)
[2017-09-14 07:51] LABS: Base Excess-Venous -7.7 mmol/L (0 (+/- 2.5)); Bicarbonate (HCO3v) 19.1 mmol/L (1.0-85.0); CO2 Tension (PvCO2) 42.4 mmHg (41.0-51.0); Calcium, Ionized 1.05 mmol/L (1.12-1.32); Hemoglobin - Calc 15.5 g/dL (12.0-18.0); O2 Tension (PvO2) 222.1 mmHg (35.0-45.0); Potassium 3.9 mmol/L (3.4-4.7); T. Carbon Dioxide 20.4 mmol/L (1.0-85.0); pH (Venous) 7.261 (7.35-7.45); vO2 Saturation-calc 99.7 % (94-98)
[2017-09-14 07:53] LABS: #Basophils 0.1 thou/uL (0.0-0.2); #Eosinphils 0.1 thou/uL (0.0-0.7); #Monocytes 1.3 thou/uL (0.11-0.59); #Neutrophils 10.4 thou/uL (1.40-6.50); %Basophils 0.5 % (0.0-1.0); %Eosinophils 0.6 % (0.0-10.0); %Lymphocytes 29.7 % (21.0-51.0); %Monocytes 7.4 % (0.0-10.0); %Neutrophils 61.8 % (42.0-75.0); Hemoglobin 13.3 g/dL (12.0-16.0); Mean Corpuscular HGB CONC 32.3 g/dL (32.0-36.0); Mean Corpuscular Hemoglobin 27.9 pg (27.0-31.0); Mean Corpuscular Volume 86.3 fl (81.0-99.0); Mean Platelet Volume 8.3 fL (7.4-10.4); Platelet Count 282 thou/uL (130-400); RBC Distribution Width 13.9 % (11.5-14.5); Red Blood Cell (RBC) Count 4.77 mill/uL (4.20-5.40); White Blood Cell (WBC) Count 16.8 thou/uL (4.8-10.8)
[2017-09-14] MEDS ORDERED: methylPREDNISolone Sod Succ/PF 125 MG/2 ML VIAL ONE (07:56)
[2017-09-14] MEDS ORDERED: Magnesium Sulfate 2 GM/100 ML BAG ONE (07:56)
[2017-09-14 07:59] LABS: INR-International Normal Ratio 1.1; PTT 28.1 SEC (22.9-36.1); Prothrombin Time 14.3 SEC (12.0-14.7)
[2017-09-14] MEDS ORDERED: Albuterol Sulfate 2.5 mg/0.5 ml Neb ONE ×3 (08:00)
[2017-09-14] MEDS ORDERED: Albuterol Sulfate 2.5 mg/3 ml Neb ONE (08:00)
[2017-09-14 08:05] LABS: Bilirubin Negative (Negative); Blood, Urine Small (Negative); Clarity CLEAR (Clear); Glucose, Urine (Dipstick) Negative (Negative); Leukocyte Small (Negative); Nitrite Negative (Negative); Protein, Urine (Dipstick) 30 mg/dL (Neg-Trace); Specific Gravity, Urine 1.017 (1.002-1.036); pH, Urine 5.5 (5.0-9.0)
[2017-09-14 08:08] LABS: Bacteria/HPF None Seen HPF (None Seen); Hyaline Casts/LPF 0-3 HYALINE CAST LPF (0-3 Hyaline); Pathc Cast-AUWi Flag 0.72 (0-2.49); Squamous Epithelial 0-3 HPF (0-3)
[2017-09-14 08:24] LABS: ALT (SGPT) 29 U/L (8-55); AST (SGOT) 29 U/L (5-34); Albumin 4.3 g/dL (3.5-5.0); Alkaline Phosphatase 113 U/L (40-150); Anion Gap 18 mmol/L (10-20); BUN (Urea Nitrogen) 13 mg/dL (9.8-20.1); Bilirubin, Total 0.3 mg/dL (0.2-1.2); CK (CPK) 442 U/L (29-168); Calc. Creatinine Clearance 0 mL/min (70-130); Calcium 9.4 mg/dL (7.8-10.44); Carbon Dioxide 19 mmol/L (22-29); Chloride 106 mmol/L (98-107); Estimated GFR-MDRD 61; Globulin 3.4 g/dL (2.4-3.5); Glucose 286 mg/dL (70-105); Potassium 4.5 mmol/L (3.5-5.1); Protein, Total 7.7 g/dL (6.0-8.3); Sodium 138 mmol/L (136-145)
[2017-09-14 08:27] LABS: Troponin I 0.029 ng/mL (< 0.028)
[2017-09-14 08:33] LABS: O2 Tension (PaO2) 108.1 mmHg (80.0-100.0); pH, Arterial 7.28 (7.35-7.45)
[2017-09-14 08:34] LABS: Base Excess (BEa) -3.5 mEq/L (0 (+/-) 2.5); Calcium, Ionized 1.2 mmol/L (1.12-1.30); Hemoglobin (Hb) 11.9 g/dL (12.0-16.0)
[2017-09-14 08:35] LABS: Analyzer IN Cardio ER; Puncture Site LBA
--- NOTE | 2017-09-14 08:56 | RAD ---
CHEST 1 VIEW: Date: 09/14/17 HISTORY: Post intubation. COMPARISON: Radiograph dated 08/19/17. FINDINGS: Endotracheal tube tip is 3.0 cm above joyce. Extensive perihilar opacities and left basilar opacity. No pneumothorax. Enteric tube is in place, tip below diaphragm but out of field of view. IMPRESSION: 1. Extensive air space opacities suggestive of multifocal pneumonia versus edema. ARDS within the di fferential. Follow-up recommended. 2. Endotracheal tube tip 3.0 cm above the joyce. POS: [facility]
[2017-09-14] MEDS ORDERED: Sodium Chloride 0.9% 1,000 ML IV SCH ×2 (09:15→12:00)
[2017-09-14] MEDS ORDERED: Bisacodyl 10 MG SUPP PR PRN (09:16)
[2017-09-14] MEDS ORDERED: Ondansetron HCl/PF 4 MG/2 ML Vial IVP PRN (09:16)
[2017-09-14] MEDS ORDERED: Ventilator Sedation Protocol 1 EACH FS ONE (09:16)
[2017-09-14] MEDS ORDERED: Acetaminophen 650 MG Suppository PR PRN (09:16)
[2017-09-14] MEDS ORDERED: CCU Electrolyte Replacement 1 EACH FS SCH (09:16)
[2017-09-14] MEDS ORDERED: Magnesium Oxide 400 MG TAB PO PRN ×2 (09:38)
[2017-09-14] MEDS ORDERED: DISCONTINUE PREVIOUS NARCOTIC PAIN MEDICATIONS AND BENZODIAZEPINES FS SCH (09:38)
[2017-09-14] MEDS ORDERED: Potassium Phosphate 12 MMOL in Sodium Chloride 0.9% 250 ML 250 ML IV PRN (09:38)
[2017-09-14] MEDS ORDERED: fentaNYL Citrate/PF 2,000 MCG in Sodium Chloride 0.9% 60 ML IV SCH (09:38)
[2017-09-14] MEDS ORDERED: Potassium Phosphate 15 MMOL in Sodium Chloride 0.9% 250 ML 250 ML IV PRN (09:38)
[2017-09-14] MEDS ORDERED: Potassium Phosphate 9 MMOL in Sodium Chloride 0.9% 100 ML IVPB PRN (09:38)
[2017-09-14] MEDS ORDERED: Potassium Chloride 40 MEQ in Sodium Chloride 0.9% 250 ML 250 ML IVPB PRN (09:38)
[2017-09-14] MEDS ORDERED: Fentanyl BOLUS 250 ML IVPB PRN (09:38)
[2017-09-14] MEDS ORDERED: Propofol BOLUS 1,000 MG/100 ML VIAL IV PRN (09:38)
[2017-09-14] MEDS ORDERED: Potassium Chloride 40 MEQ in Premix Bag 1 BAG IVPB PRN (09:38)
[2017-09-14] MEDS ORDERED: CCU ELECTROLYTE REPLACEMENT PROTOCOL FS PRN (09:38)
[2017-09-14] MEDS ORDERED: Magnesium 2 GM/NS 0.9% 100 ML 2 GM in Premix Bag 1 BAG IVPB PRN (09:38)
[2017-09-14] MEDS ORDERED: Lorazepam 2 MG/ML VIAL SLOW IVP PRN (09:38)
[2017-09-14] MEDS ORDERED: Morphine 4 MG/ML VIAL SLOW IVP PRN (09:38)
[2017-09-14] MEDS ORDERED: Potassium Chloride 20 MEQ TAB PO PRN (09:38)
[2017-09-14] MEDS ORDERED: Enoxaparin Sodium 30 MG/0.3 ML SYRINGE SC SCH (09:45)
[2017-09-14] MEDS ORDERED: Famotidine/PF 20 mg/2ml Vial SLOW IVP SCH ×2 (09:45→21:00)
[2017-09-14] MEDS ORDERED: Midazolam HCl 2 mg/2 ml Vial ONE (09:54)
[2017-09-14] MEDS ORDERED: Piperacillin/Tazobactam 4.5 GM in Sodium Chloride 0.9% 100 ML IVPB SCH (10:00)
[2017-09-14] MEDS ORDERED: hydrALAZINE 20 MG/ML VIAL SLOW IVP PRN (10:34)
--- NOTE | 2017-09-14 10:43 | PDOC.FPRHP ---
- History of Present Illness Chief Complaint: SOB History of Present Illness: Pt is a 61 yo AAF w/ PMH of COPD, HTN, and hx of cocaine abuse presenting via EMS for SOB. Per reports, pt had SOB for 1 hour this AM despite multiple nebulizer treatments and called EMS. Pt was somnolent and hypoxic and initially placed on CPAP. Pt then presented to ED and due to concern for hypoxia and protection of airway, pt was intubated via RSI. No family at bedside and no further HPI available at this time. Review of record shows pt was hospitalized approximately 1 month prior for COPD exacerbation. ED Course: Evaluated by Dr. Moon. RSI with etomidate and rocuronium, 7.0 ET tube. Pt was sedated with propofol and had routine labwork drawn. - Allergies/Adverse Reactions Allergies Allergy/AdvReac Type Severity Reaction Status Date / Time No Known Allergies Allergy Verified 08/20/17 16:25 - Home Medications Medication Instructions Recorded Confirmed Type Lisinopril 5 mg PO DAILY 06/23/14 09/14/17 History traMADol HCl [Tramadol HCl] 50 mg PO QID PRN 08/01/15 09/14/17 History Simvastatin [Zocor] 20 mg PO QPM #0 tab 08/07/15 09/14/17 Rx Tiotropium Kite [Spiriva] 1 puff INH BID 02/19/17 09/14/17 History Ventolin HFA Inhaler 2 puff INH TID 02/19/17 09/14/17 History Aspirin [Ecotrin Low Strength] 81 mg PO DAILY #90 tab 02/20/17 09/14/17 Rx Benzonatate [Tessalon] 100 mg PO Q4H PRN #30 cap 03/18/17 09/14/17 Rx Fluticasone/Salmeterol [Advair 1 puff INH DAILY 05/26/17 09/14/17 History Diskus 100/50] Ipratropium Kite [Atrovent] 1 ampule INH PRN PRN 05/26/17 09/14/17 History predniSONE 40 mg PO DAILY #5 tab 05/27/17 09/14/17 Rx Gabapentin 600 mg PO HS 08/20/17 09/14/17 History predniSONE 40 mg PO QAM-WM #3 tab 08/21/17 09/14/17 Rx - History PMHx: COPD, HTN, HLD, GERD PSHx: CS, back surgery FHx: maternal cerebral aneurysm, paternal HTN Social: former 100 pack year tobacco smoker, history of cocaine use - Review of Systems ROS unobtainable: due to endotracheal tube - Vital signs BP: 167/76 HR: 111 RR: 12 Tmax: 98.4 Pox: 100% on SIMV 12/450/50% Wt: 62.5kg - Physical Exam Constitutional: NAD, other (sedated and intubated) HEENT: normocephalic and atraumatic, PERRLA Neck: no LAD, no JVD Heart: normal S1/S2, other (tachycardic, regular rhythm) Lungs: good air movement, other (exp wheezing BL) Abdomen: soft, non-tender, bowel sounds present Musculoskeletal: normal structure Neurological: DTRs 2+, other (sedated) Skin: capillary refill <2 seconds Heme/Lymphatic: no unusual bruising or bleeding FMR H&P: Results - Labs Result Diagrams: 09/14/17 07:37 09/14/17 07:37 Lab results: WBC 16.8 thou/uL (4.8-10.8) H 09/14/17 07:37 Hgb 13.3 g/dL (12.0-16.0) 09/14/17 07:37 Hct 41.1 % (36.0-47.0) 09/14/17 07:37 MCV 86.3 fl (81.0-99.0) 09/14/17 07:37 Plt Count 282 thou/uL (130-400) 09/14/17 07:37 Neutrophils % 61.8 % (42.0-75.0) 09/14/17 07:37 ABG pH 7.28 (7.35-7.45) L 09/14/17 08:30 ABG pCO2 52.0 mmHg (35.0-45.0) H 09/14/17 08:30 ABG pO2 108.1 mmHg (80.0-100.0) H 09/14/17 08:30 VBG pCO2 42.4 mmHg (41.0-51.0) 09/14/17 07:49 VBG pO2 222.1 mmHg (35.0-45.0) H 09/14/17 07:49 Sodium 138 mmol/L (136-145) 09/14/17 07:37 Potassium 4.5 mmol/L (3.5-5.1) 09/14/17 07:37 Chloride 106 mmol/L (98-107) 09/14/17 07:37 Carbon Dioxide 19 mmol/L (22-29) L 09/14/17 07:37 BUN 13 mg/dL (9.8-20.1) 09/14/17 07:37 Creatinine 1.10 mg/dL (0.6-1.1) 09/14/17 07:37 Glucose 286 mg/dL (70-105) H 09/14/17 07:37 Calcium 9.4 mg/dL (7.8-10.44) 09/14/17 07:37 Total Bilirubin 0.3 mg/dL (0.2-1.2) 09/14/17 07:37 AST 29 U/L (5-34) 09/14/17 07:37 ALT 29 U/L (8-55) 09/14/17 07:37 Alkaline Phosphatase 113 U/L (40-150) 09/14/17 07:37 Creatine Kinase 442 U/L (29-168) H 09/14/17 07:37 CK-MB (CK-2) 9.0 ng/mL (0-6.6) H* 09/14/17 07:37 Serum Total Protein 7.7 g/dL (6.0-8.3) 09/14/17 07:37 Albumin 4.3 g/dL (3.5-5.0) 09/14/17 07:37 Urine Ketones Negative mg/dL (Negative) 09/14/17 07:23 Urine Blood Small (Negative) H 09/14/17 07:23 Urine Nitrite Negative (Negative) 09/14/17 07:23 Ur Leukocyte Esterase Small (Negative) H 09/14/17 07:23 Urine RBC 4-6 HPF (0-3) 09/14/17 07:23 Urine WBC 7-10 HPF (0-3) H 09/14/17 07:23 Ur Squamous Epith Cells 0-3 HPF (0-3) 09/14/17 07:23 Urine Bacteria None Seen HPF (None Seen) 09/14/17 07:23 - EKG Interpretation EKG: Sinus tachycardia, rate 140, no ST changes - Radiology Interpretation Chest x-ray Status: image reviewed by me (ET tube in place. hyperinflation. bilateral opacities.) FMR H&P: A/P - Problem List (1) Acute respiratory failure with hypoxia Current Visit: Yes Status: Acute Priority: High Code(s): J96.01 - ACUTE RESPIRATORY FAILURE WITH HYPOXIA (2) COPD (chronic obstructive pulmonary disease) Current Visit: Yes Status: Chronic Qualifiers: COPD type: COPD with acute exacerbation Qualified Code(s): J44.1 - Chronic obstructive pulmonary disease with (acute) exacerbation (3) Cardiac enzymes elevated Current Visit: Yes Status: Acute Code(s): R74.8 - ABNORMAL LEVELS OF OTHER SERUM ENZYMES (4) Cocaine abuse Current Visit: No Status: Chronic Priority: Low Code(s): F14.10 - COCAINE ABUSE, UNCOMPLICATED (5) Diastolic CHF, chronic Current Visit: Yes Status: Chronic Code(s): I50.32 - CHRONIC DIASTOLIC ( CONGESTIVE) HEART FAILURE (6) Hypertension Current Visit: Yes Status: Chronic Priority: Medium Code(s): I10 - ESSENTIAL (PRIMARY) HYPERTENSION Qualifiers: Hypertension type: unspecified Qualified Code(s): I10 - Essential (primary ) hypertension (7) HLD (hyperlipidemia) Current Visit: Yes Status: Chronic Priority: Low Code(s): E78.5 - HYPERLIPIDEMIA, UNSPECIFIED Qualifiers: Hyperlipidemia type: unspecified Qualified Code(s): E78.5 - Hyperlipidemia , unspecified - Plan 1. Acute hypoxic hypercapneic respiratory failure 2/2 COPD exacerbation, HCAP, or cocaine abuse -limited history obtainable on presentation but pt has history of COPD with recent hospitalization for COPD exacerbation, and recent cocaine abuse. -pt intubated in ED for hypoxia and airway protection -admit to CCU with sedation protocol -pulmonology consulted, recommendations greatly appreciated -coverage for HCAP with IV vancomycin and zosyn. low risk for needing double anti-pseudomonal coverage -blood cultures obtained -procalcitonin, UDS, and urine strep ag ordered. 2. Elevated cardiac enzymes likely 2/2 demand ischemia - CKMB and troponin near baseline from last hospitalization, continue to trend. 3. COPD -continue duonebs 4. HTN -will restart home medications when able. PRN IV hydralazine. hold beta blockers until UDS results. 5. HFpEF 6. GERD PPx: Lovenox for VTE and famotidine for GI prophylaxis. Disposition/LOS: Admit to CCU for anticipated length of stay greater than two midnights, pending clinical course. Attending Addendum - Attending Addendum Date/Time: 09/14/17 1015 I personally evaluated the patient and discussed the management with Dr. [place]. I agree with the History, Examination, Assessment and Plan documented above with any addition or exceptions noted below. H&P reviewed and repeated by me. 61 y/o BF with PMH COPD, disastolic CHF, polysubstance abuse who presented via EMS for difficulty breathing. Subsequently intubated in ER. Rest of history obtained from medical chart. Pertinent exam: course bs diffusely with end exp wheeze. Normal s1/s2, tachycardic. Ext: no c/c/e Labs and imaging reviewed. 1) Acute hypoxic and hypercapneic respiratory failure- continue vent and sedation per pulmonology. 2) COPD exaccerbation- nebs, steroids, abx. 3) Multifocal infiltrates- PNA vs edema- start broad spectrum abx and check BNP. 4) Cocaine and THC abuse- counseling 5) Elevated trop and CKMB- probably secondary to cocaine abuse- trend. 6) Diastolic CHF- consider ECHO pending BNP result.
[2017-09-14 10:49] LABS: Lactic Acid 3.2 mmol/L (0.5-2.2)
[2017-09-14 10:53] LABS: Troponin I 0.075 ng/mL (< 0.028)
[2017-09-14] MEDS ORDERED: Cefepime 2 GM, Syringe 2.5 ML in Sodium Chloride 0.9% 10 ML SLOW IVP SCH (11:00)
[2017-09-14 11:01] LABS: CKMB 9.8 ng/mL (0-6.6)
[2017-09-14] MEDS: Propofol 1,000 MG/100 ML VIAL IV PRN ×2 (11:10→16:25)
[2017-09-14 11:24] VITALS: BMI 24.0
[2017-09-14 12:01] LABS: Cocaine Metabolite Screen Detected (NotDetected); Medtox Reader # READER 4; THC/Cannabinoid Screen Detected (NotDetected)
[2017-09-14 12:02] LABS: Amphetamine Not Detected (NotDetected); Barbiturates Screen Not Detected (NotDetected); Benzodiazepine Screen Not Detected (NotDetected); Medtox Control Line Valid? VALID (VALID); Methadone Not Detected (NotDetected); Methamphetamine Not Detected (NotDetected); Opiate Screen Not Detected (NotDetected); Oxycodone Screen Not Detected (NotDetected); Phencyclidine (PCP) Not Detected (NotDetected); Tricyclic Screen Not Detected (NotDetected)
--- NOTE | 2017-09-14 12:10 | CON ---
DATE OF CONSULTATION: 09/14/2017 SERVICE: Pulmonary Medicine. REASON FOR CONSULTATION: Intubated patient. HISTORY OF PRESENT ILLNESS: The patient is a 61-year-old -Cong[place] female with past medical h istory significant for COPD. She was in her usual state of health when apparently she started having increasing shortness of breath. She was given multiple nebulizer treatments. En route to the emerg ency department via EMS, she was placed on noninvasive ventilation. She did not tolerate this well. Because of increasing mentation issues, she was subsequently intubated in the emergency department. She cannot provide me with any additional presenting symptoms at this time. She was recently hospit alized a month ago for COPD exacerbation. She was given some antibiotics, nebulized medications and steroids in the emergency department. Pulmonary was subsequently consulted for her respiratory issue . PAST MEDICAL HISTORY: 1. COPD. 2. Hypertension. 3. Dyslipidemia. 4. Gastroesophageal reflux disease. 5. Polysubstance drug abuse. PAST SURGICAL HISTORY: 1. Back surgery. 2. section. FAMILY HISTORY: Noncontributory. SOCIAL HISTORY: She has a greater than [id number] history of smoking. She uses cocaine regularly . We do not know about any other illicit drugs or the root of ingestion. REVIEW OF SYSTEMS: This cannot be obtained because the patient is currently intubated and sedated. PHYSICAL EXAMINATION: VITAL SIGNS: Afebrile currently with temperature maximum of 99.6, pulse 96, blood pressure 127/44, r espirations 24, saturation 97% on 23% FiO2 and a PEEP of 5. GENERAL: Patient is intubated and sedated. HEENT: Normocephalic, atraumatic. Sclerae are white, conjunctivae pink. Oral mucosa is moist witho ut lesions. LUNGS: Decent air entry bilaterally. There is a prolonged expiratory phase. Wheezing, rhonchi and crackles are all present. HEART: Normal rate and regular. ABDOMEN: Soft, nontender, nondistended. Bowel sounds positive. MUSCULOSKELETAL: No cyanosis or clubbing. There is no pitting in the bilateral lower extremities. NEUROLOGIC: Grossly nonfocal. LABORATORY DATA: WBC 16.8, hemoglobin 13.3, and platelets 282,000. INR 1.1. PH 7.28, pCO2 52, and pO2 108. She was on 50% FiO2 with PEEP of 5 at that time. She is on assist control with a rate of 1 2. It is not clear whether or not she was overbreathing at that time. Basic metabolic profile is es sentially unremarkable. Liver function studies are unremarkable. CK-MB is gently trending upward to 9.8. Troponin is also trending upward to 0.075. Lactate 3.2 and ionized calcium 1.05. IMAGING: Chest x-ray demonstrates interstitial opacifications throughout bilateral lung abdi, and some degree of cephalization present. Endotracheal tube is roughly 3 cm above the joyce. There is an enteric catheter that courses midline well below the level of the diaphragm in the expected region of the stomach. The tip is excluded from this film. ASSESSMENT: 1. Acute hypoxic and hypercapnic respiratory failure. 2. Chronic obstructive pulmonary disease with acute exacerbation. 3. Polysubstance drug abuse. 4. Acute on chronic diastolic heart failure, suspected. 5. Non-ST elevation myocardial infarction. PLAN: We can repeat her cardiac enzymes in a couple of hours. If the troponins continue to trend up eckert, Cardiology consultation should be considered. Agree with urine drug screen. We will leave her on mechanical ventilation for the next 24 hours. Agree with empiric antibiotics for the time being, but I am more suspicious of a volume overload setting than a true infectious profile. Because of th e pattern of chest x-ray, we will need to cover atypical organisms. As such, I will add Levaquin for the time being. Pulmonary or Critical Care will continue to follow. CRITICAL CARE TIME: 30 minutes.
[2017-09-14] MEDS ORDERED: Famotidine 40 MG/4 ML VIAL SLOW IVP SCH (13:15)
[2017-09-14 14:07] LABS: Strep pneumo Urine Ag NEGATIVE (NEGATIVE)
[2017-09-14 14:09] LABS: Troponin I 0.065 ng/mL (< 0.028)
[2017-09-14 14:25] LABS: CKMB 10.8 ng/mL (0-6.6)
--- NOTE | 2017-09-14 20:27 | CON ---
DATE OF ADMISSION: 09/14/2017 DATE OF CONSULTATION: 09/14/2017 INDICATION FOR CONSULTATION: This is a 61-year-old female with a history of cocaine use who was admi tted with respiratory failure, we were asked to see her for evaluation due to the abnormal cardiac en zymes; however, I would expect the enzymes to be abnormal. In view of the cocaine abuse, she recentl y was in the hospital with similar problems and had an echocardiogram performed as well as stress jimbo ting. The echocardiogram was done actually in 06/2016 which showed ejection fraction of 70%-75% with 1/3 diastolic dysfunction. Her stress test was done 08/21/2017 which showed no evidence of ischemia and ejection fraction of 61%. At this time, she continues to have a normal sinus rhythm. She does have tachycardia. There are no acute ST segment changes to indicate myocardial infarction. She does have evidence of left ventricular hypertrophy and T-wave changes associated with that, which could b e considered with some inferolateral ischemia; however, she did have a negative stress test just rece ntly. At this time, she is sedated on the ventilator and most of the [facility] and from the medical record chart. There are no family members available. Apparent ly, she was having increasing shortness of breath and had taken nebulizer treatments to her COPD, but this did not improve her shortness of breath and she presented for further evaluation. She has been given antibiotics and nebulizers as well as steroids and is now on the ventilator and appears to be relatively comfortable, but actually has been sedated also on stand. PAST MEDICAL HISTORY: Significant for the COPD, hypertension, gastroesophageal reflux disease, dysli pidemia, and polysubstance drug abuse. PAST SURGICAL HISTORY: She had a and back surgery. FAMILY HISTORY: Noncontributory. SOCIAL HISTORY: She smoked in the past. She continues to smoke. She uses cocaine on a regular basi s. She has over [id number] history of smoking. REVIEW OF SYSTEMS: Unobtainable, please refer to the records dictated in the past. PHYSICAL EXAMINATION: GENERAL: Reveals a middle-aged -[place] female. VITAL SIGNS: Blood pressure is 102/42, heart rate 87, respiratory rate 20, O2 saturation 100% on the ventilator. HEENT: Shows the head to be normocephalic and atraumatic. NECK: Carotid pulses are present. She has bilateral carotid bruits. LUNGS: Chest is actually clear anteriorly, but she does have some minimal rales posteriorly. CARDIOVASCULAR: Reveals a mild tachycardia with a regular rate and rhythm. Otherwise, she has no gr oss murmurs, heaves, thrills, bruits or rubs. ABDOMEN: Soft and nontender. Positive bowel sounds are present. She has bilateral femoral bruits. The right femoral bruit is very difficult to palpate, but is present. The left appears to be normal , but also has a bruit. Popliteal pulses are very difficult to palpate. I could not palpate pedal p ulses. NEUROLOGIC: The patient is sedated. LABORATORY DATA: Shows WBC of 16.8, hemoglobin 13.3, potassium 3.9, and creatinine is 1.1. Her CK w as elevated at 442 which most likely is due to tachycardia associated with cocaine use. Her MB is al so elevated and cardiac enzymes, actually troponin I is still indeterminate and based on the level of the MB and CPK, this is certainly not me too alarming. BNP was 360. IMPRESSION: 1. Acute respiratory failure due to most likely chronic obstructive pulmonary disease exacerbation. This is being dealt with by the supervisor cured meats. 2. Abnormal cardiac enzymes which most likely is associated with the demand ischemia and also cocain e abuse. The patient has had a recent negative stress test unless she has more EKG changes or chest discomfort, then no further intervention would be indicated. She has also had an echocardiogram abou t a year ago which was unremarkable and showed a normal ejection fraction. We could repeat this to d etermine whether or not she has any further left ventricular hypertrophy or not. 3. History of diastolic dysfunction. We can also repeat the echocardiogram for evaluation of her di astolic dysfunction. We will continue to follow her on a routine basis with you at this time, but fr om a cardiac standpoint, she is actually very relatively stable.
[2017-09-14] MEDS ORDERED: Vancomycin HCl 1.5 GM in Sodium Chloride 0.9% 250 ML 300 ML IVPB SCH (21:00)
[2017-09-14] MEDS ORDERED: Cefepime 2 GM in Sodium Chloride 0.9% 100 ML IVPB SCH (21:00)
[2017-09-14] MEDS: Famotidine 40 MG/4 ML VIAL SLOW IVP SCH (21:15)
[2017-09-15 04:38] LABS: #Lymphocytes 1.8 thou/uL (1.20-3.40); #Monocytes 1.2 thou/uL (0.11-0.59); #Neutrophils 11.9 thou/uL (1.40-6.50); %Basophils 0.1 % (0.0-1.0); %Eosinophils 0.2 % (0.0-10.0); %Lymphocytes 11.7 % (21.0-51.0); %Monocytes 8.1 % (0.0-10.0); %Neutrophils 79.9 % (42.0-75.0); Hemoglobin 11.6 g/dL (12.0-16.0); Mean Corpuscular HGB CONC 32.7 g/dL (32.0-36.0); Mean Corpuscular Hemoglobin 27.8 pg (27.0-31.0); Mean Platelet Volume 8.7 fL (7.4-10.4); Platelet Count 235 thou/uL (130-400); RBC Distribution Width 13.8 % (11.5-14.5); Red Blood Cell (RBC) Count 4.18 mill/uL (4.20-5.40); White Blood Cell (WBC) Count 14.9 thou/uL (4.8-10.8)
[2017-09-15 05:05] LABS: ALT (SGPT) 23 U/L (8-55); AST (SGOT) 21 U/L (5-34); Albumin 3.6 g/dL (3.5-5.0); Alkaline Phosphatase 82 U/L (40-150); Anion Gap 9 mmol/L (10-20); BUN (Urea Nitrogen) 10 mg/dL (9.8-20.1); Bilirubin, Total 0.2 mg/dL (0.2-1.2); Calc. Creatinine Clearance 73 mL/min (70-130); Calcium 9.3 mg/dL (7.8-10.44); Carbon Dioxide 23 mmol/L (22-29); Chloride 112 mmol/L (98-107); Estimated GFR-MDRD 89; Globulin 2.9 g/dL (2.4-3.5); Glucose 131 mg/dL (70-105); Protein, Total 6.5 g/dL (6.0-8.3); Sodium 140 mmol/L (136-145)
[2017-09-15] MEDS: Propofol 1,000 MG/100 ML VIAL IV PRN (06:02)
--- NOTE | 2017-09-15 08:01 | PDOC.FM ---
- Subjective Subjective: Pt seen at bedside in NADNayan ZUÑIGA overnight. Successfully extubated this morning and states she feels much better. Pt denies CP, SOB, NVD. - Objective MAR Reviewed: Yes Vital Signs & Weight: Vital Signs (12 hours) Temp Pulse Resp BP Pulse Ox 09/15/17 07:50 92 23 H 100 09/15/17 06:49 84 09/15/17 06:00 13 09/15/17 04:00 98.7 F 12 09/15/17 02:00 13 09/15/17 01:55 85 118/49 L 09/15/17 00:00 12 09/14/17 22:12 90 118/47 L 09/14/17 22:00 14 09/14/17 20:00 14 Weight Admit Weight 61.6 kg Most Recent Monitor Data Heart Rate from ECG 81 NIBP 128/42 NIBP BP-Mean 66 Respiration from ECG 17 SpO2 100 I&O: 09/14/17 09/15/17 09/16/17 06:59 06:59 06:59 Intake Total 1709.9 Output Total 3345 Balance -1635.1 Result Diagrams: 09/15/17 03:18 09/15/17 03:18 <Jv Birmingham - Last Filed: 09/15/17 08:10> - Objective Vital Signs & Weight: Vital Signs (12 hours) Temp Pulse Pulse Pulse Resp BP BP 09/15/17 20:00 99.6 F 113 H 20 09/15/17 19:02 108 H 16 09/15/17 17:23 98.7 F 108 H 20 09/15/17 16:00 98.2 F 09/15/17 15:00 108 H 107 H 124/41 L 09/15/17 12:29 110 H 20 09/15/17 11:00 99.2 F 09/15/17 10:14 92 117/38 L BP BP Pulse Ox 09/15/17 20:00 103/71 97 09/15/17 19:02 95 09/15/17 17:23 153/69 H 99 09/15/17 16:00 09/15/17 15:00 118/50 L 09/15/17 12:29 100 09/15/17 11:00 09/15/17 10:14 Weight Admit Weight 61.6 kg Most Recent Monitor Data Heart Rate from ECG 110 NIBP 139/49 NIBP BP-Mean 75 Respiration from ECG 28 SpO2 100 I&O: 09/14/17 09/15/17 09/16/17 06:59 06:59 06:59 Intake Total 1709.9 378 Output Total 3345 880 Balance -1635.1 -502 Result Diagrams: 09/15/17 03:18 09/15/17 03:18 <Annie Peña - Last Filed: 09/15/17 22:00> Phys Exam - Physical Examination Constitutional: NAD HEENT: PERRLA, sclera anicteric Respiratory: no wheezing mild rales BL bases Cardiovascular: RRR, no significant murmur Gastrointestinal: soft, non-tender, positive bowel sounds Musculoskeletal: pulses present Neurological: moves all 4 limbs Psychiatric: normal affect, A&O x 3 Skin: cap refill <2 seconds <Jv Birmingham - Last Filed: 09/15/17 08:10> Dx/Plan (1) Acute respiratory failure with hypoxia Code(s): J96.01 - ACUTE RESPIRATORY FAILURE WITH HYPOXIA Status: Acute (2) COPD (chronic obstructive pulmonary disease) Status: Chronic QualifierTitle: COPD type: COPD with acute exacerbation Qualified Code(s) : J44.1 - Chronic obstructive pulmonary disease with (acute) exacerbation (3) Cardiac enzymes elevated Code(s): R74.8 - ABNORMAL LEVELS OF OTHER SERUM ENZYMES Status: Acute (4) Cocaine abuse Code(s): F14.10 - COCAINE ABUSE, UNCOMPLICATED Status: Chronic (5) Diastolic CHF, chronic Code(s): I50.32 - CHRONIC DIASTOLIC (CONGESTIVE) HEART FAILURE Status: Chronic (6) Hypertension Code(s): I10 - ESSENTIAL (PRIMARY) HYPERTENSION Status: Chronic QualifierTitle: Hypertension type: unspecified Qualified Code(s): I10 - Essential (primary) hypertension (7) HLD (hyperlipidemia) Code(s): E78.5 - HYPERLIPIDEMIA, UNSPECIFIED Status: Chronic QualifierTitle: Hyperlipidemia type: unspecified Qualified Code(s): E78.5 - Hyperlipidemia, unspecified - Plan Plan: 1. Acute hypoxic hypercapneic respiratory failure 2/2 COPD exacerbation, HCAP, or cocaine abuse -limited history obtainable on presentation but pt has history of COPD with recent hospitalization for COPD exacerbation, and recent cocaine abuse. -pt intubated in ED for hypoxia and airway protection -pulmonology consulted, recommendations greatly appreciated -initially started on coverage for HCAP with IV vancomycin and zosyn. low risk for needing double anti-pseudomonal coverage -review of CXR and consideration of pt response to therapy thus far supports viral/atypical picture rather than true HCAP. continue Levaquin and discontinue vancomycin and zosyn. -blood cultures obtained and pending -procalcitonin negative -pt successfully extubated 09/15 AM 2. Elevated cardiac enzymes likely 2/2 demand ischemia -CKMB and troponin near baseline from last hospitalization, continue to trend. -likely secondary to cocaine use -cardiology recs greatly appreciated 3. COPD -continue duonebs and steroids 4. HTN -will restart home medications when able. PRN IV hydralazine. hold beta blockers. 5. HFpEF -consider repeat TTE 6. GERD PPx: Lovenox for VTE and famotidine for GI prophylaxis. Disposition: Pt stable after extubation. Monitor in CCU and consider transfer out of CCU if pt continues to be stable. If pt is able to pass bedside swallow, initiate diet and restarting of home PO medications. Continue to monitor. <Jv Birmingham - Last Filed: 09/15/17 08:10> (1) Acute respiratory failure with hypoxia Code(s): J96.01 - ACUTE RESPIRATORY FAILURE WITH HYPOXIA Status: Acute (2) COPD (chronic obstructive pulmonary disease) Status: Chronic Qualifiers: COPD type: COPD with acute exacerbation Qualified Code(s): J44.1 - Chronic obstructive pulmonary disease with (acute) exacerbation (3) Cardiac enzymes elevated Code(s): R74.8 - ABNORMAL LEVELS OF OTHER SERUM ENZYMES Status: Acute (4) Cocaine abuse Code(s): F14.10 - COCAINE ABUSE, UNCOMPLICATED Status: Chronic (5) Diastolic CHF, chronic Code(s): I50.32 - CHRONIC DIASTOLIC (CONGESTIVE) HEART FAILURE Status: Chronic (6) Hypertension Code(s): I10 - ESSENTIAL (PRIMARY) HYPERTENSION Status: Chronic Qualifiers: Hypertension type: unspecified Qualified Code(s): I10 - Essential (primary ) hypertension (7) HLD (hyperlipidemia) Code(s): E78.5 - HYPERLIPIDEMIA, UNSPECIFIED Status: Chronic Qualifiers: Hyperlipidemia type: unspecified Qualified Code(s): E78.5 - Hyperlipidemia , unspecified <Annie Peña - Last Filed: 09/15/17 22:00> Attending Addendum - Attending Addendum Date/Time: 09/15/17929 I personally evaluated the patient and discussed the management with Dr. Birmingham I agree with the History, Examination, Assessment and Plan documented above with any addition or exceptions noted below. Hypoxic resp failure- now extubated and on NC. COPD Exac- steroids, nebs, Levaquin Probable PNA- abx as above Elevated CKMB- appreciate cards recs. ECHO pending. Cocaine abuse <Annie Peña - Last Filed: 09/15/17 22:00>
--- NOTE | 2017-09-15 08:05 | PRG ---
DATE OF SERVICE: 09/15/2017 SERVICE: Pulmonary Medicine. INTERVAL HISTORY: The patient is doing really well from a respiratory standpoint. She is breathing comfortably. This morning, she is awake. She is following some simple commands, but she is a little too sleepy to stay awake for more than 3 seconds because of sedation. Otherwise, there has been no interval change to her condition. There were no overnight events reported. PHYSICAL EXAMINATION: VITAL SIGNS: Afebrile, pulse 84, blood pressure 142/52, respirations 19, saturation 100% on room air , 21% FiO2 and a PEEP of 5. HEENT: Normocephalic, atraumatic. Sclerae are white, conjunctivae pink. Oral and nasal mucosa is m oist without lesions. LUNGS: Decent air entry. There is no prolonged expiratory phase, wheezing, rhonchi, or crackles pre sent. HEART: Normal rate, regular. ABDOMEN: Soft, nontender, nondistended. Bowel sounds are positive. MUSCULOSKELETAL: No cyanosis or clubbing. There is no pitting in the bilateral lower extremities. NEUROLOGIC: Grossly nonfocal. LABORATORY DATA: WBC 14.9, hemoglobin 11.6, platelets 235. Creatinine 0.80 and down trending. Basi c metabolic profile is essentially unremarkable otherwise. Her chloride is creeping up to 112 and so dium is creeping up to 140. Procalcitonin is 0.31. Cocaine and cannabinoids are positive in the uri ne drug screen. Urine strep is negative. Blood cultures are negative x2. ASSESSMENT: 1. Acute hypoxic and hypercapnic respiratory failure. 2. Chronic obstructive pulmonary disease with acute exacerbation. 3. Polysubstance drug abuse. 4. Acute on chronic diastolic heart failure. 5. Non-ST elevation myocardial infarction. PLAN: I will put her on spontaneous breathing trial. If she meets criteria, extubation will be cons idered. All other antibiotics have been discontinued. We will cover atypical organisms. The procal citonin was negative, making a consolidating pneumonia very unlikely. Steroids and antibiotics can b e limited to total duration of 5 days. We will convert over to p.o. medications as soon as she is lim ccessfully extubated. Pulmonary Critical Care will continue to follow. CRITICAL CARE TIME: 30 minutes.
[2017-09-15 08:48] LABS: Lactic Acid 4.2 mmol/L (0.5-2.2)
[2017-09-15] MEDS ORDERED: Enoxaparin Sodium 30 MG/0.3 ML SYRINGE SC SCH (09:00)
[2017-09-15] MEDS: Enoxaparin Sodium 40 MG/0.4 ML SYRINGE SC SCH (09:02)
[2017-09-15] MEDS: Famotidine 40 MG/4 ML VIAL SLOW IVP SCH (09:03)
--- NOTE | 2017-09-15 09:11 | PDOC.CTH ---
<Ramila Shaffer - Last Filed: 09/15/17 09:07> Cardiology Progress Note - Subjective The pt seen and examined. No overnight events. No cardiac complaints. Extubated this AM. Lethargic. - Objective Vital Signs Temp Pulse Resp BP Pulse Ox 09/15/17 07:50 92 15 100 09/15/17 07:00 98.5 F 09/15/17 06:49 84 09/15/17 06:00 13 09/15/17 04:00 98.7 F 12 09/15/17 02:00 13 09/15/17 01:55 85 118/49 L 09/15/17 00:00 12 09/14/17 22:12 90 118/47 L 09/14/17 22:00 14 Admit Weight 135 lb 12.876 oz 09/14/17 09/15/17 09/16/17 06:59 06:59 06:59 Intake Total 1709.9 Output Total 3345 150 Balance -1635.1 -150 - Physical Examination General/Neuro: other: (oriented to self but no place or situation) Neck: carotid US brisk Lungs: other: (diminished at bases) Heart: RRR Abdomen: soft Extremities: other: (no edema) - Telemetry Telemetry Rhythm: SR - Labs Result Diagrams: 09/15/17 03:18 09/15/17 03:18 Troponin/CKMB CK-MB (CK-2) 10.8 ng/mL (0-6.6) H* 09/14/17 13:27 Troponin I 0.065 ng/mL (< 0.028) H 09/14/17 13:27 - Assessment/Plan 1. Acute Resp. failure due to COPD exacerbation - Extubated today. Stable with RA; Managed by interceptor operator 2. Chronic diastolic HF - No edema or SOB; on AMADEO. Not BBlocker due to COPD 3. Elevated Trop - stble; cont. to monitor 4. HTN - stable with current med 5. Hyperlipidemia - on Statin 6. Current smoker - 7. Polysubstance abuse - MAR reviewed Review of Systems - Review of Systems Constitutional: reports: see HPI EENTM: reports: no symptoms reported Respiratory: reports: no symptoms reported Cardiac (ROS): reports: no symptoms reported ABD/GI: reports: no symptoms reported <Cassidy Lora - Last Filed: 09/15/17 09:47> Cardiology Progress Note - Objective Vital Signs Temp Pulse Resp BP Pulse Ox 09/15/17 07:50 92 15 100 09/15/17 07:00 98.5 F 09/15/17 06:49 84 09/15/17 06:00 13 09/15/17 04:00 98.7 F 12 09/15/17 02:00 13 09/15/17 01:55 85 118/49 L 09/15/17 00:00 12 09/14/17 22:12 90 118/47 L 09/14/17 22:00 14 Admit Weight 135 lb 12.876 oz 09/14/17 09/15/17 09/16/17 06:59 06:59 06:59 Intake Total 1709.9 Output Total 3345 210 Balance -1635.1 -210 - Labs Result Diagrams: 09/15/17 03:18 09/15/17 03:18 Troponin/CKMB CK-MB (CK-2) 10.8 ng/mL (0-6.6) H* 09/14/17 13:27 Troponin I 0.065 ng/mL (< 0.028) H 09/14/17 13:27 - Assessment/Plan Pt. seen and eval. by me. No complaints. Chest clear, RRR. I agree with the A/P by the FOREIGN BANK[employer] TELLER TRADER. I have nothing more to add at this time. She will need to continue her medications and abstain from illicit drug use. i will sign off. If any cardiac changes please page me again.
[2017-09-15] MEDS: Aspirin 81 mg Enteric Coated Tablet PO SCH (10:14)
[2017-09-15] MEDS: Lisinopril 5 MG TAB PO SCH (10:14)
[2017-09-15] MEDS ORDERED: Acetaminophen 325 MG TAB PO PRN (10:58)
[2017-09-15] MEDS: Mometasone/Formoterol 120 PUFF INHALER INH SCH (19:20)
[2017-09-15] MEDS: Famotidine 20 MG TAB PO SCH (20:30)
[2017-09-15] MEDS ORDERED: Atorvastatin Calcium 10 MG TAB PO SCH (21:00)
[2017-09-16 04:40] LABS: #Monocytes 1.2 thou/uL (0.11-0.59); %Basophils 0.1 % (0.0-1.0); %Eosinophils 0.1 % (0.0-10.0); %Lymphocytes 26.1 % (21.0-51.0); %Monocytes 8.1 % (0.0-10.0); %Neutrophils 65.5 % (42.0-75.0); Hemoglobin 11.1 g/dL (12.0-16.0); Mean Corpuscular HGB CONC 33.6 g/dL (32.0-36.0); Mean Corpuscular Hemoglobin 27.9 pg (27.0-31.0); Mean Corpuscular Volume 83.2 fl (81.0-99.0); Mean Platelet Volume 8.7 fL (7.4-10.4); Platelet Count 269 thou/uL (130-400); RBC Distribution Width 13.9 % (11.5-14.5); Red Blood Cell (RBC) Count 3.98 mill/uL (4.20-5.40); White Blood Cell (WBC) Count 15.3 thou/uL (4.8-10.8)
[2017-09-16 04:43] LABS: Lactic Acid 1.9 mmol/L (0.5-2.2)
[2017-09-16 04:50] LABS: ALT (SGPT) 35 U/L (8-55); AST (SGOT) 56 U/L (5-34); Albumin 3.8 g/dL (3.5-5.0); Alkaline Phosphatase 82 U/L (40-150); Anion Gap 12 mmol/L (10-20); BUN (Urea Nitrogen) 18 mg/dL (9.8-20.1); Bilirubin, Total 0.3 mg/dL (0.2-1.2); Calc. Creatinine Clearance 65 mL/min (70-130); Calcium 9.7 mg/dL (7.8-10.44); Carbon Dioxide 25 mmol/L (22-29); Chloride 106 mmol/L (98-107); Estimated GFR-MDRD 77; Globulin 3.1 g/dL (2.4-3.5); Glucose 87 mg/dL (70-105); Potassium 3.9 mmol/L (3.5-5.1); Protein, Total 6.9 g/dL (6.0-8.3); Sodium 139 mmol/L (136-145)
[2017-09-16] MEDS: Mometasone/Formoterol 120 PUFF INHALER INH SCH (07:19)
[2017-09-16] MEDS ORDERED: predniSONE 20 MG TAB PO SCH (08:00)
--- NOTE | 2017-09-16 08:10 | PDOC.FM ---
- Subjective Subjective: Pt seen at bedside in NAD. YOGESH overnight. Pt much more awake and interactive this AM. Notes she has been able to ambulate well without problem and would like to go home to look after her great grandchildren. Pt denies HENDERSON, CP, SOB, abd pain, NVD. - Objective MAR Reviewed: Yes Vital Signs & Weight: Vital Signs (12 hours) Pulse Resp Pulse Ox 09/16/17 07:20 100 14 09/16/17 00:58 99 20 100 Weight Admit Weight 61.6 kg Most Recent Monitor Data Heart Rate from ECG 110 NIBP 139/49 NIBP BP-Mean 75 Respiration from ECG 28 SpO2 100 I&O: 09/15/17 09/16/17 09/17/17 06:59 06:59 06:59 Intake Total 1709.9 638 Output Total 3345 880 Balance -1635.1 -242 Result Diagrams: 09/16/17 03:48 09/16/17 03:48 <Jv Birmingham M - Last Filed: 09/16/17 08:16> - Objective Vital Signs & Weight: Vital Signs (12 hours) Temp Pulse Resp BP BP Pulse Ox 09/16/17 12:15 98.5 F 95 14 172/79 H 99 09/16/17 08:38 101 H 144/58 H 09/16/17 08:00 98.3 F 101 H 18 144/58 H 96 09/16/17 07:20 100 14 Weight Admit Weight 61.6 kg Most Recent Monitor Data Heart Rate from ECG 110 NIBP 139/49 NIBP BP-Mean 75 Respiration from ECG 28 SpO2 100 I&O: 09/15/17 09/16/17 09/17/17 06:59 06:59 06:59 Intake Total 1709.9 638 Output Total 3345 880 Balance -1635.1 -242 Result Diagrams: 09/16/17 03:48 09/16/17 03:48 <Lokesh Boudreaux - Last Filed: 09/16/17 13:55> Phys Exam - Physical Examination Constitutional: NAD HEENT: PERRLA, sclera anicteric Respiratory: no wheezing, clear to auscultation bilateral Cardiovascular: RRR, no significant murmur Gastrointestinal: soft, non-tender, positive bowel sounds Musculoskeletal: pulses present Neurological: moves all 4 limbs Psychiatric: normal affect, A&O x 3 Skin: cap refill <2 seconds <Jv Birmingham - Last Filed: 09/16/17 08:16> Dx/Plan (1) Acute respiratory failure with hypoxia Code(s): J96.01 - ACUTE RESPIRATORY FAILURE WITH HYPOXIA Status: Acute (2) COPD (chronic obstructive pulmonary disease) Status: Chronic QualifierTitle: COPD type: COPD with acute exacerbation Qualified Code(s) : J44.1 - Chronic obstructive pulmonary disease with (acute) exacerbation (3) Cardiac enzymes elevated Code(s): R74.8 - ABNORMAL LEVELS OF OTHER SERUM ENZYMES Status: Acute (4) Cocaine abuse Code(s): F14.10 - COCAINE ABUSE, UNCOMPLICATED Status: Chronic (5) Diastolic CHF, chronic Code(s): I50.32 - CHRONIC DIASTOLIC (CONGESTIVE) HEART FAILURE Status: Chronic (6) Hypertension Code(s): I10 - ESSENTIAL (PRIMARY) HYPERTENSION Status: Chronic QualifierTitle: Hypertension type: unspecified Qualified Code(s): I10 - Essential (primary) hypertension (7) HLD (hyperlipidemia) Code(s): E78.5 - HYPERLIPIDEMIA, UNSPECIFIED Status: Chronic QualifierTitle: Hyperlipidemia type: unspecified Qualified Code(s): E78.5 - Hyperlipidemia, unspecified (8) Polysubstance abuse Code(s): F19.10 - OTHER PSYCHOACTIVE SUBSTANCE ABUSE, UNCOMPLICATED Status: Acute - Plan Plan: 1. Acute hypoxic hypercapneic respiratory failure 2/2 COPD exacerbation -limited history obtainable on presentation but pt has history of COPD with recent hospitalization for COPD exacerbation, and recent cocaine abuse. -pt intubated in ED for hypoxia and airway protection -pulmonology consulted, recommendations greatly appreciated -initially started on coverage for HCAP with IV vancomycin and zosyn. low risk for needing double anti-pseudomonal coverage -review of CXR and consideration of pt response to therapy thus far supports viral/atypical picture rather than true HCAP. continue Levaquin and discontinue vancomycin and zosyn. -blood cultures obtained and no growth to date -procalcitonin negative, lactic acid wnl -pt successfully extubated 4/24 AM -continue 2 more days of PO levaquin and prednisone 2. Elevated cardiac enzymes likely 2/2 demand ischemia -CKMB and troponin near baseline from last hospitalization -likely secondary to cocaine use -cardiology recs greatly appreciated 3. COPD -continue duonebs and steroids 4. HTN -home meds. PRN IV hydralazine. hold beta blockers. 5. HFpEF -repeat TTE shows EF 60-65% with evidence of diastolic dysfunction 6. GERD -home meds 7. Polysubstance abuse -counseled cessation PPx: Lovenox for VTE and famotidine for GI prophylaxis. disposition: Pt stable and much improved this AM. Specialist recommendations greatly appreciated. Pt has tolerated restarting home medications without complication. Likely discharge today with close outpatient follow up with PCP. <Jv Birmingham - Last Filed: 09/16/17 08:16> Attending Addendum - Attending Addendum Date/Time: 09/16/17 2641 I personally evaluated the patient and discussed the management with Dr. Birmingham. I agree with the History, Examination, Assessment and Plan documented above with any addition or exceptions noted below. <Lokesh Boudreaux - Last Filed: 09/16/17 13:55>
[2017-09-16] MEDS: Famotidine 20 MG TAB PO SCH (08:38)
[2017-09-16] MEDS: Aspirin 81 mg Enteric Coated Tablet PO SCH (08:38)
[2017-09-16] MEDS: Lisinopril 5 MG TAB PO SCH (08:38)
[2017-09-16] MEDS: Enoxaparin Sodium 40 MG/0.4 ML SYRINGE SC SCH (08:40)
--- NOTE | 2017-09-16 10:07 | PRG ---
DATE OF SERVICE: 09/16/2017 SERVICE: Pulmonary Medicine. INTERVAL HISTORY: The patient is doing fine from a respiratory standpoint. She denies any current f dee, chills, nausea, vomiting or chest discomfort. She has essentially returned to her usual state of health. She has been up walking in the hallways without difficulty or assistance. PHYSICAL EXAMINATION: VITAL SIGNS: Afebrile, pulse 101, blood pressure 144/58, respirations 18, saturation 96% on room air . GENERAL: The patient is awake, alert, in no apparent distress. LUNGS: Excellent air entry. There is no prolonged expiratory phase or wheezing appreciated. HEART: Normal rate and regular. ABDOMEN: Soft, nontender, and nondistended. Bowel sounds are positive. MUSCULOSKELETAL: No cyanosis or clubbing. There is no pitting in the bilateral lower extremities. NEUROLOGIC: Grossly nonfocal. LABORATORY DATA: WBC 15.3, hemoglobin 11.1, platelets 269,000. Basic metabolic profile and liver fu nction studies are essentially unremarkable. Lactate has resolved to 1.9. Procalcitonin was unremar kable. IMAGING: Echocardiogram demonstrates 60%-65% ejection fraction with normal left atrium. There is di astolic dysfunction present. Moderately elevated pulmonary artery pressure is identified. ASSESSMENT: 1. Acute hypoxic respiratory failure, resolved. 2. Chronic obstructive pulmonary disease with acute exacerbation, resolved. 3. Polysubstance drug abuse. 4. Acute on chronic diastolic heart failure. 5. Non-ST elevation myocardial infarction, DISCUSSION AND PLAN: The patient's respiratory issue has resolved to baseline. Steroids will be dis continued. Antibiotics can be converted over to p.o. and limited to a total duration of 5 days. Fro m my perspective, she is stable for transition out of the hospital as long as she has a white blood c ell count checked in the outpatient setting. At this point, she has no further requirements for inpa tient Pulmonary or Critical Care opinion. As such, I will sign off. Please call with additional que stions or concerns.
[2017-09-16 12:25] VITALS: BP 172/79; TEMP 98.5
--- NOTE | 2017-09-16 14:09 | PQF ---
DATE: 09-16-17 ATTN: DR. CARLSO MEDINA Please exercise your independent, professional judgment in responding to the clarification form. Clinical indicators are provided on the bottom of this form for your review Please check appropriate box(s): [ x ] Demand Ischemia [ ] AMI Type II [ ] NSTEMI [ ] Other diagnosis [ ] Unable to determine In addition, please specify: Present on Admission (POA): [ ] Yes [ ] No [ ] Unable to determine CLINICAL INDICATORS - SIGNS / SYMPTOMS / LABS: TROPONIN: 09-14-17: 0.029 0.075 0.065 H&P: ELEVATED TROP AND CKMB-PROBABLY SECONDARY TO COCAINE ABUSE- TREND. CONSULT DR. CRUZ 09-15-17: NON-ST ELEVATION NE CONSULT DR. TRAN 09-15-17: ABNORMAL CARDIAC ENZYMES WHICH MOST LIKELY IS ASSOCIATED WITH THE DEMAND ISCHEMIA AND ALSO COCAINE ABUSE. RISKS: ER: HX OF COPD, HYPERLIPIDEMIA, HTN, COCAINE ABUSE, SMOKER TREATMENTS: H&P: H&P: ELEVATED TROP AND CKMB-PROBABLY SECONDARY TO COCAINE ABUSE- TREND. CARDIOLOGY CONSULT RT: 09-14-17: ON VENT (This form is maintained as a part of the permanent medical record) 2015 [email or web address]. All Rights Reserved MARILEE [email or web address] Office: [phone] [place]
--- NOTE | 2017-09-16 14:19 | DIS-2 ---
DATE OF ADMISSION: 09/14/2017 DATE OF DISCHARGE: 09/16/2017 RESIDENT: Dr. Jv Birmingham. ADMITTING ATTENDING: Dr. Annie Peña. DISCHARGE ATTENDING: Dr. Lokesh Boudreaux. CONSULTATIONS: 1. Pulmonology, Dr. Joao Newman. 2. Cardiology, Dr. Maria Guadalupe Lora. 3. Physical therapy. PROCEDURES: 1. Chest x-ray performed on 09/14/2017 showed appropriate endotracheal tube tip placement and extensive bilateral opacities suggestive of multifocal infiltrates. 2. Transthoracic echocardiogram performed on 09/15/2017 showed an ejection fraction of 60%-65%, diastolic dysfunction, mildly enlarged right ventricle, mild tricuspid regurgitation and moderately elevated pulmonary artery pressure. PRIMARY DIAGNOSES: 1. Acute hypoxic hypercapnic respiratory failure secondary to chronic obstructive pulmonary disease exacerbation, resolved. 2. Chronic obstructive pulmonary disease exacerbation. 3. Cocaine abuse. 4. Elevated cardiac enzymes, likely secondary to cocaine abuse. SECONDARY DIAGNOSES: 1. Chronic obstructive pulmonary disease. 2. Hypertension. 3. Heart failure with preserved ejection fraction. 4. Hyperlipidemia. 5. Gastroesophageal reflux disease. 6. Polysubstance abuse. DISCHARGE MEDICATIONS: 1. Levofloxacin 750 mg p.o. for 2 more days. 2. Prednisone 40 mg p.o. q.a.m. with meals for 2 more days. 3. Gabapentin 600 mg p.o. at bedtime. 4. Atrovent inhaler p.r.n. 5. Advair 1 puff inhaled daily. 6. Aspirin 81 mg p.o. daily. 7. Spiriva 1 puff inhaled b.i.d. 8. Ventolin inhaler 2 puffs t.i.d. p.r.n. 9. Simvastatin 20 mg p.o. at bedtime. 10. Tramadol 50 mg p.o. q.i.d. p.r.n. 11. Lisinopril 5 mg p.o. daily. HISTORY OF PRESENT ILLNESS AND HOSPITAL COURSE: The patient is a 61-year-old -[place] female who initially presented due to shortness of breath. On the day of admission, she was short of breath at home, had nebulized breathing treatments and was not responding appropriately. On presentation, she was hypoxic, hypercapnic and still short of breath and was therefore intubated for protection of her airway. Through her workup, the patient was initially thought to have hospital acquired pneumonia and was therefore covered with appropriate antibiotic coverage; however, quickly transitioned to only Levaquin after very quick response to therapy. The patient was successfully extubated on the following morning without complication. It was thought that the patient had her respiratory failure secondary to chronic obstructive pulmonary disease exacerbation, likely caused by cocaine abuse. As soon as the patient was extubated, swallow study was performed and diet was advanced. Her home medications were restarted without complication. The patient did have elevated cardiac enzymes on arrival that were trended and found to be near baseline from her previous hospitalization with final troponin of 0.065 and CK-MB of 10.8. Cardiology was consulted and agreed with our initial assessment that this was likely due to demand ischemia secondary to drug abuse. A transthoracic echocardiogram was repeated and found to confirm previous diagnosis of heart failure with preserved ejection fraction. After discussing disposition with the patient and multiple conversations were had discussing cessation of her polysubstance abuse, patient voiced her desire to be discharged home and was medically stable. The patient has outpatient referrals to follow up on including a carotid ultrasound and it was deemed that this was not necessary to be done in the inpatient setting. The patient's hospital course was otherwise uncomplicated. DISPOSITION: Stable. DISCHARGE INSTRUCTIONS: 1. Location: Home. 2. Diet: Heart healthy diet. 3. Activity: As tolerated. 4. Followup: The patient was instructed to follow up with her primary care physician, Dr. Nicole Lopez within 1 week to review hospital stay. It is recommended that patient obtain a CBC in the outpatient setting to ensure resolution of her leukocytosis of 14 on the day of discharge. The patient is to also have a carotid ultrasound done in the outpatient setting. [place]RAD
== END 2017-09-16 12:28 | disposition home or self-care (01) | DRG 208 ==
LOC: ERS 07:25 → CCU 09:03 → T4-A 09-15 17:41
PROVIDERS: ADMIT Family Medicine; ATTEND Family Medicine
PROC: 5A1935Z Respiratory Ventilation, Less than 24 Consecutive Hours (ICD-10-PCS; principal; 2017-09-14)
PROC: 0BH17EZ Insertion of Endotracheal Airway into Trachea, Via Natural or Artificial Opening (ICD-10-PCS; 2017-09-14)
DX: J96.01 Acute respiratory failure with hypoxia (principal); I21.A1 Myocardial infarction type 2; I50.33 Acute on chronic diastolic (congestive) heart failure; J44.1 Chronic obstructive pulmonary disease with (acute) exacerbation; I11.0 Hypertensive heart disease with heart failure; Z87.891 Personal history of nicotine dependence; E78.5 Hyperlipidemia, unspecified; K21.9 Gastro-esophageal reflux disease without esophagitis; J96.02 Acute respiratory failure with hypercapnia; F14.10 Cocaine abuse, uncomplicated
CPT/HCPCS: 31500; 36415; 51702; 71045; 80053; 80306; 81003; 81015; 82330; 82550; 82553; 82803; 82805; 83605; 83880; 84145; 84484; 85025; 85610; 85730; 87040; 87899; 93005; 93306; 94002; 94003; 94640; 94644; 94660; 94760; 96365; 96367; 96375; A4216; G8978-GP-CJ; G8979-GP-CH; J1650; J1956; J2060; J2250; J2543; J2704; J2920; J2930; J3370; J3475; J7050; J7506; J7611; J7620; S0028

== ENCOUNTER 2017-10-08 08:54 | Outpatient (CLI) | payer OTHER | END 2017-10-08 08:55 | disposition home or self-care (01) | LOC: BICULT 08:54 | PROVIDERS: ATTEND Family Medicine | DX: R55 Syncope and collapse (principal) | CPT/HCPCS: 93880 ==

== ENCOUNTER 2017-11-05 00:36 | Observation (INO) | payer OTHER ==
[2017-11-05] MEDS ORDERED: Magnesium Sulfate 2 GM/100 ML BAG ONE (00:40)
[2017-11-05 01:27] LABS: #Lymphocytes 3.1 thou/uL (1.20-3.40); #Monocytes 1.2 thou/uL (0.11-0.59); #Neutrophils 10.6 thou/uL (1.40-6.50); %Eosinophils 0.1 % (0.0-10.0); %Lymphocytes 20.6 % (21.0-51.0); %Monocytes 7.8 % (0.0-10.0); %Neutrophils 71.5 % (42.0-75.0); Hemoglobin 12.5 g/dL (12.0-16.0); Mean Corpuscular HGB CONC 33.9 g/dL (32.0-36.0); Mean Corpuscular Hemoglobin 28.3 pg (27.0-31.0); Mean Corpuscular Volume 83.5 fl (81.0-99.0); Mean Platelet Volume 8.2 fL (7.4-10.4); Platelet Count 288 thou/uL (130-400); RBC Distribution Width 14.4 % (11.5-14.5); White Blood Cell (WBC) Count 14.8 thou/uL (4.8-10.8)
[2017-11-05] MEDS ORDERED: Albuterol Sulfate 2.5 mg/0.5 ml Neb ONE (01:45)
[2017-11-05] MEDS ORDERED: Albuterol Sulfate 2.5 mg/3 ml Neb ONE (01:45)
[2017-11-05 01:47] LABS: ALT (SGPT) 16 U/L (8-55); AST (SGOT) 19 U/L (5-34); Albumin 4.3 g/dL (3.5-5.0); Alkaline Phosphatase 91 U/L (40-150); Anion Gap 15 mmol/L (10-20); BUN (Urea Nitrogen) 19 mg/dL (9.8-20.1); Bilirubin, Total 0.2 mg/dL (0.2-1.2); CK (CPK) 289 U/L (29-168); Calc. Creatinine Clearance 0 mL/min (70-130); Carbon Dioxide 21 mmol/L (22-29); Chloride 107 mmol/L (98-107); Estimated GFR-MDRD 65; Globulin 3.4 g/dL (2.4-3.5); Glucose 121 mg/dL (70-105); Potassium 4.1 mmol/L (3.5-5.1); Protein, Total 7.7 g/dL (6.0-8.3); Sodium 139 mmol/L (136-145)
[2017-11-05 01:51] LABS: Troponin I Less than 0.010 ng/mL (< 0.028)
[2017-11-05 01:52] LABS: CKMB 8.4 ng/mL (0-6.6)
--- NOTE | 2017-11-05 03:41 | PDOC.FPRHP ---
- History of Present Illness Chief Complaint: SOB History of Present Illness: This is a stable 61 yo F with many ER visits/hospital admissions for COPD exacerbation who is being admitted for COPD exacerbation. Patient states that after she started to feel short of breath. She says she has been getting worse since she was seen in the clinic on Thursday, 3 days ago. At that time she was given prednisone and levoquin. She is not on oxygen at home. She has had mild productive cough. She has mild chest pain on the L side which is worse after eating, described as burning pain, feels like food is getting caught up. ED Course: CXR shows hyperinflation, no infiltrate by author's read CTA pending received methypred, duoneb, levoquin, and oxygen in the Ed - Allergies/Adverse Reactions Allergies Allergy/AdvReac Type Severity Reaction Status Date / Time No Known Allergies Allergy Verified 11/05/17 04:35 - Home Medications Medication Instructions Recorded Confirmed Type Lisinopril 5 mg PO DAILY 06/23/14 11/05/17 History traMADol HCl [Tramadol HCl] 50 mg PO QID PRN 08/01/15 11/05/17 History Simvastatin [Zocor] 20 mg PO QPM #0 tab 08/07/15 11/05/17 Rx Tiotropium [place] [Spiriva] 1 puff INH BID 02/19/17 11/05/17 History Aspirin [Ecotrin Low Strength] 81 mg PO DAILY #90 tab 02/20/17 11/05/17 Rx Fluticasone/Salmeterol [Advair 1 puff INH DAILY 05/26/17 11/05/17 History Diskus 100/50] Gabapentin 600 mg PO TID 08/20/17 11/05/17 History Albuterol Sulfate [Albuterol 1.25 mg NEB Q6HR PRN 11/05/17 11/05/17 History Sulfate Neb] Ranitidine HCl 150 mg PO BID 11/05/17 11/05/17 History - History PMHx: COPD, HFpEF, HTN, HLD, GERD PSHx: CS, back surgery FHx: maternal cerebral aneurysm, paternal HTN Social: former 100 pack year tobacco smoker, says she quit 6 weeks ago, history of cocaine use - Review of Systems General: reports: fatigue. denies: fever/chills Eyes: denies: eye pain, vision changes ENT: denies: nasal congestion, rhinorrhea Respiratory: reports: cough, shortness of breath, exercise intolerance Cardiovascular: reports: chest pain (L sided related to eating). denies: palpitation, edema Gastrointestinal: denies: nausea, vomiting, diarrhea, constipation, abdominal pain Genitourinary: denies: dysuria Skin: denies: rashes Musculoskeletal: denies: pain, arthritis/arthralgias Neurological: denies: numbness, weakness - Vital signs BP: 107/77 HR: 117 RR: 22 Tmax: 96.8 Pox: 96% on RA Wt: 59kg - Physical Exam Constitutional: NAD, awake, alert and oriented HEENT: normocephalic and atraumatic, PERRLA, EOMI Neck: supple Heart: RRR, normal S1/S2, no murmurs/rubs/gallops Lungs: other -Lungs: No retractions, no increased work of breath, end expiratory wheezes, moderate air movement Abdomen: soft, non-tender, bowel sounds present Musculoskeletal: normal structure Neurological: no focal deficit, normal sensation Skin: no rash/lesions, capillary refill <2 seconds Heme/Lymphatic: no unusual bruising or bleeding FMR H&P: Results - Labs Result Diagrams: 11/05/17 01:15 11/05/17 01:15 Lab results: WBC 14.8 thou/uL (4.8-10.8) H 11/05/17 01:15 Hgb 12.5 g/dL (12.0-16.0) 11/05/17 01:15 Hct 36.8 % (36.0-47.0) 11/05/17 01:15 MCV 83.5 fl (81.0-99.0) 11/05/17 01:15 Plt Count 288 thou/uL (130-400) 11/05/17 01:15 Neutrophils % 71.5 % (42.0-75.0) 11/05/17 01:15 Sodium 139 mmol/L (136-145) 11/05/17 01:15 Potassium 4.1 mmol/L (3.5-5.1) 11/05/17 01:15 Chloride 107 mmol/L (98-107) 11/05/17 01:15 Carbon Dioxide 21 mmol/L (22-29) L 11/05/17 01:15 BUN 19 mg/dL (9.8-20.1) 11/05/17 01:15 Creatinine 1.04 mg/dL (0.6-1.1) 11/05/17 01:15 Glucose 121 mg/dL (70-105) H 11/05/17 01:15 Calcium 10.0 mg/dL (7.8-10.44) 11/05/17 01:15 Total Bilirubin 0.2 mg/dL (0.2-1.2) 11/05/17 01:15 AST 19 U/L (5-34) 11/05/17 01:15 ALT 16 U/L (8-55) 11/05/17 01:15 Alkaline Phosphatase 91 U/L (40-150) 11/05/17 01:15 Creatine Kinase 289 U/L (29-168) H 11/05/17 01:15 CK-MB (CK-2) 8.4 ng/mL (0-6.6) H* 11/05/17 01:15 Serum Total Protein 7.7 g/dL (6.0-8.3) 11/05/17 01:15 Albumin 4.3 g/dL (3.5-5.0) 11/05/17 01:15 FMR H&P: A/P - Problem List (1) Acute respiratory failure with hypoxia Current Visit: No Status: Acute Priority: High Code(s): J96.01 - ACUTE RESPIRATORY FAILURE WITH HYPOXIA (2) COPD exacerbation Current Visit: No Status: Acute Priority: Medium Code(s): J44.1 - CHRONIC OBSTRUCTIVE PULMONARY DISEASE W (ACUTE) EXACERBATION (3) Polysubstance abuse Current Visit: No Status: Acute Code(s): F19.10 - OTHER PSYCHOACTIVE SUBSTANCE ABUSE, UNCOMPLICATED (4) Diastolic CHF, chronic Current Visit: No Status: Chronic Code(s): I50.32 - CHRONIC DIASTOLIC ( CONGESTIVE) HEART FAILURE (5) GERD (gastroesophageal reflux disease) Current Visit: No Status: Chronic Priority: Low Code(s): K21.9 - GASTRO- ESOPHAGEAL REFLUX DISEASE WITHOUT ESOPHAGITIS (6) HLD (hyperlipidemia) Current Visit: No Status: Chronic Priority: Low Code(s): E78.5 - HYPERLIPIDEMIA, UNSPECIFIED Qualifiers: Hyperlipidemia type: unspecified Qualified Code(s): E78.5 - Hyperlipidemia , unspecified (7) Hypertension Current Visit: No Status: Chronic Priority: Medium Code(s): I10 - ESSENTIAL (PRIMARY) HYPERTENSION Qualifiers: Hypertension type: unspecified Qualified Code(s): I10 - Essential (primary ) hypertension - Plan # COPD exacerbation - Duonebs, prednisone, O2 as needed - got levoquin in clinic thursday, switch to azithromycin - satting well off O2 at time of examination in ED # HFpEF - dry oral mucosa in ED - NS at 100 ml/hr to stop at 10:00 - EF on last admit 60-65% - home meds, watch fluid balance # HTN - home meds # HLD - statin # GERD - ranitidine # History of drug abuse - admits to "using a little cocaine" on Thursday - check UDS # Tobacco Abuse - 100 pack year smoking history - says she quit 6 weeks ago, continue to encourage cessation Diet: regular Fluids: 100 ml/hr NS Code: full Dispo: < 48 hours FMR H&P: Upper Level - Pertinent history 61 yo F with PMH significant for COPD, HFpEF (60-65%), polysubstance abuse presents with one day of worsening shortness of breath. Was seen at [facility] on treated for COPD exacerbation with mucinex, levaquin, 5-day course of prednisone. Had not noted much improvement and was not getting improvement with inhaler at home. Given duoneb en route to ER and felt that her breathing improved slightly. In the ER she also received prednisone, magnesium. - Pertinent findings PE: T: 96.8 P: 117 BP: 107/77 RR: 22 95% on RA Gen: [place] female in NAD HEENT: PERRL, EOMI, MMM, no lymphadenopathy or thyromegaly CV: RRR no murmurs, distal pulses intact Pulm: CTAB, scattered wheezes bilaterally Abd: soft, NT/ND, BS present, no masses Ext: no cyanosis or edema MSK: FLORES well, no joint or muscle pain or swelling Neuro: CN 2-12 intact, normal sensation Skin: no rashes or lesions Psych: A&O x3, appropriate in conversation - Plan Date/Time: 11/05/17 0340 61 yo F here with SOB. 1) COPD exacerbation: Obs on telemetry. Will continue scheduled nebs until patient notes improvement in breathing. Continue steroids daily, azithromycin for ppx. 2) HFpEF: Continue home medications, appears euvolemic currently 3) polysubstance abuse: admits to cocaine use last weekend, f/u UDS 4) HTN: continue home medications, avoid BBs 5) GERD: continue PPI I, [Marco A Savage], have evaluated this patient and agree with findings/plan as outlined by [facility] intern resident. Pertinent changes/additions are listed here. Attending Addendum - Attending Addendum Date/Time: 11/05/17 [id number] I personally evaluated the patient and discussed the management with Dr. Tavarez and Ignacio. I agree with and repeated the History, Examination, Assessment and Plan documented above with any addition or exceptions noted below. She is c/o shortness of breath when I enter the room that is worsening. She appears mildly uncomfortable. Satting 93% on 2 L Tachycardic, regular, without murmur Accessory use and increased wob, tachypnea, inspiratory crackles posteriorly with good air movement and scant exp wheezing Bs+, NTTP No jvd or peripheral edema. Will order stat ECG, CXR, nebs and lasix, as well as tni and vbg. Will monitor closely, may require IMCU/ICU admission. DVT and gi ppx.
[2017-11-05] MEDS ORDERED: Sodium Chloride 0.9% 1,000 ML IV SCH (04:17)
[2017-11-05] MEDS ORDERED: Ondansetron ODT 4 MG TAB PO PRN (04:17)
[2017-11-05] MEDS ORDERED: Acetaminophen 325 MG TAB PO PRN (04:17)
[2017-11-05 04:31] VITALS: BMI 26.4
[2017-11-05] MEDS ORDERED: traMADol HCl 50 MG TAB PO PRN (04:59)
[2017-11-05] MEDS ORDERED: Mag-Al 1200 mg/1200 mg/30 ML UDCUP PO PRN (05:14)
[2017-11-05] MEDS ORDERED: Azithromycin 500 MG in Sodium Chloride 0.9% 250 ML 250 ML IVPB SCH (06:00)
[2017-11-05] MEDS: Ipratropium Bromide 2.5 ml Neb NEB SCH ×4 (06:36→23:53)
[2017-11-05] MEDS: Mometasone/Formoterol 120 PUFF INHALER INH SCH ×2 (06:43→18:13)
[2017-11-05 07:49] LABS: Amphetamine Not Detected (NotDetected); Barbiturates Screen Not Detected (NotDetected); Benzodiazepine Screen Not Detected (NotDetected); Cocaine Metabolite Screen Detected (NotDetected); Medtox Control Line Valid? VALID (VALID); Medtox Reader # READER 4; Methadone Not Detected (NotDetected); Methamphetamine Not Detected (NotDetected); Opiate Screen Not Detected (NotDetected); Oxycodone Screen Not Detected (NotDetected); Phencyclidine (PCP) Not Detected (NotDetected); THC/Cannabinoid Screen Not Detected (NotDetected); Tricyclic Screen Not Detected (NotDetected)
--- NOTE | 2017-11-05 07:51 | RAD ---
CHEST 1 VIEW: HISTORY: Dyspnea. COMPARISON: 09/14/17. FINDINGS: Cardiac silhouette magnified by projection. Pulmonary vasculature upper limits of normal. Mediastin um midline with aortic calcification. No lobar consolidation o evidence of pneumothorax. Cardiac mo nitor leads overlie the chest. IMPRESSION: 1. Atherosclerosis. 2. No active cardiopulmonary abnormalities are otherwise demonstrated. POS: [facility]
[2017-11-05] MEDS: Lisinopril 5 MG TAB PO SCH ×2 (08:15→08:17)
[2017-11-05] MEDS: predniSONE 20 MG TAB PO SCH (08:17)
[2017-11-05] MEDS: Famotidine 20 MG TAB PO SCH ×2 (08:17→20:45)
[2017-11-05] MEDS: Aspirin 81 mg Enteric Coated Tablet PO SCH (08:17)
[2017-11-05] MEDS: Enoxaparin Sodium 40 MG/0.4 ML SYRINGE SC SCH (08:18)
--- NOTE | 2017-11-05 08:36 | CT ---
PRELIMINARY REPORT/[facility]/EMERGENTY AFTER-HOURS PROCEDURE CT Angiography Chest With Intravenous Contrast CLINICAL HISTORY: 61 years old, female; Signs and symptoms; Shortness of breath; Patient HX: 61f with shortness of meche th for several days, worse tonight. HX of copd. Reports cough with white sputum. Given 125mg of solum edrol and nebs by ems. Denies fever and chills. No chest pain TECHNIQUE: Axial computed tomographic angiography images of the chest with intravenous contrast using pulmonary embolism protocol. MIP reconstructed images were created and reviewed. Coronal reformatted images were created and reviewed. COMPARISON: No relevant prior studies available. FINDINGS: Pulmonary arteries: No acute findings. No evidence of pulmonary embolism. Aorta: Atherosclerotic calcifications and plaques including irregular plaques. No thoracic aortic ane urysm. Lungs: Centrilobular and paraseptal emphysema. No mass. No consolidation. Tiny peripheral right lower lobe calcified granuloma. Few scattered punctate peripheral nonspecific nodular opacities. Mild depe ndent atelectasis. Pleural space: No acute findings. No effusion. No pneumothorax. Heart: No acute findings. No cardiomegaly. No pericardial effusion. Bones/joints: No acute fracture. Epidural lipomatosis. Lymph nodes: No lymphadenopathy. IMPRESSION: No evidence of pulmonary embolism. Emphysema and other findings above. Thank you for allowing us to participate in the care of your patient. Dictated and Authenticated by: Chris Talley MD 11/05/2017 3:06 AM Central Time ([place] & [place]) FINAL REPORT CT ARTERIOGRAM CHEST WITH IV CONTRAST AND 3D MIP IMAGING: DATE: 11/05/17. TIME: Performed on an emergency basis at 0150 hours. HISTORY: Chest pain. Dyspnea. FINDINGS: Findings agree with the preliminary report by Dr. Talley from [facility]. There is no CT evide nce of pulmonary embolus. Prominent atherosclerosis. COPD. POS: [facility]
[2017-11-05] MEDS ORDERED: Spiriva 18 MCG CAP (Box of 5 Caps) INH SCH (09:00)
[2017-11-05] MEDS ORDERED: Non-Formulary Item 1 EACH (Ranitidine Hcl [Ranitidine Hcl] 150 MG) PO SCH (09:00)
[2017-11-05] MEDS ORDERED: Non-Formulary Item 1 EACH (Fluticasone/Salmeterol [Advair Diskus 100/50] 1 PUFF) INH SCH (09:00)
[2017-11-05 10:01] LABS: Troponin I 0.019 ng/mL (< 0.028)
[2017-11-05] MEDS ORDERED: Furosemide 40 MG/4 ML VIAL SLOW IVP SCH (10:45)
[2017-11-05] MEDS ORDERED: ISOVUE-370 76%-LOCM 1 ML ONE (11:19)
--- NOTE | 2017-11-05 11:46 | RAD ---
PA AND LATERAL VIEWS CHEST: Date: 11/05/17 HISTORY: Shortness of breath. FINDINGS: Comparison made with exam of 03/17/17. The heart size is normal. The aorta is tortuous. The lungs are expanded without confluent areas of co nsolidation, pneumothorax, or pleural effusions. There are postop changes in the lumbar spine. IMPRESSION: No radiographic evidence of acute cardiopulmonary process. POS: [facility]
[2017-11-05 12:03] LABS: Actual Bicarbonate (HCO3v) 16 mEq/L (22-28); Base Excess -0.8 mEq/L (-2.0 to +3.0)
[2017-11-05 12:04] LABS: Hemoglobin (Hb) 1.3 g/dL (11.7-16.0)
--- NOTE | 2017-11-05 14:30 | EKG ---
Test Reason : C/O CHEST PAIN Blood Pressure : / mmHG Vent. Rate : 106 BPM Atrial Rate : 106 BPM P-R Int : 116 ms QRS Dur : 100 ms QT Int : 370 ms P-R-T Axes : 081 080 258 degrees QTc Int : 491 ms Sinus tachycardia Right atrial enlargement Left ventricular hypertrophy with repolarization abnormality Abnormal ECG When compared with ECG of 05-NOV-2017 00:42, (Unconfirmed) ST now depressed in Anterior leads Confirmed by JORGITO GORDON ([id number]) on 11/05/2017 2:29:39 PM Referred By: FIDEL Confirmed By:JORGITO GORDON
[2017-11-05] MEDS ORDERED: Simvastatin 20 MG TAB PO SCH (21:00)
[2017-11-06] MEDS: Ipratropium Bromide 2.5 ml Neb NEB SCH (06:37)
[2017-11-06] MEDS: Mometasone/Formoterol 120 PUFF INHALER INH SCH (06:43)
[2017-11-06] MEDS: Famotidine 20 MG TAB PO SCH (07:37)
[2017-11-06] MEDS: Aspirin 81 mg Enteric Coated Tablet PO SCH (07:38)
[2017-11-06] MEDS: predniSONE 20 MG TAB PO SCH (07:38)
[2017-11-06] MEDS: Lisinopril 5 MG TAB PO SCH ×2 (07:39→07:45)
[2017-11-06] MEDS: Enoxaparin Sodium 40 MG/0.4 ML SYRINGE SC SCH (07:40)
[2017-11-06 07:45] VITALS: BP 119/55
[2017-11-06 07:53] VITALS: TEMP 98.4
[2017-11-06] MEDS ORDERED: Azithromycin 250 MG TAB PO SCH (09:00)
--- NOTE | 2017-11-06 09:15 | PDOC.FM ---
- Subjective Subjective: Patient feels well today. States she feels 75% of normal. Has walked to the first floor and back. Is tolerating meals. Says she still have cough and SOB, but no fever, pain or diarrhea. - Objective MAR Reviewed: Yes Vital Signs & Weight: Vital Signs (12 hours) Temp Pulse Resp BP BP BP Pulse Ox 11/06/17 07:49 98.4 F 78 12 11/06/17 07:45 78 119/55 L 11/06/17 07:20 98.4 F 80 12 119/55 L 92 L 11/06/17 06:43 78 12 11/06/17 06:38 99 11/06/17 06:37 78 12 11/06/17 02:24 106 H 24 H 118/51 L 96 11/06/17 00:49 97 11/05/17 23:53 87 16 97 Weight Weight 61.235 kg I&O: 11/05/17 11/06/17 11/07/17 06:59 06:59 06:59 Intake Total 240 1600 240 Output Total 400 2800 Balance -160 -1200 240 Result Diagrams: 11/05/17 01:15 11/05/17 01:15 <Luis Tavarez M - Last Filed: 11/06/17 09:14> - Objective Vital Signs & Weight: Vital Signs (12 hours) Temp Pulse Resp BP BP BP Pulse Ox 11/06/17 07:49 98.4 F 78 12 11/06/17 07:45 78 119/55 L 11/06/17 07:20 98.4 F 80 12 119/55 L 92 L 11/06/17 06:43 78 12 11/06/17 06:38 99 11/06/17 06:37 78 12 11/06/17 02:24 106 H 24 H 118/51 L 96 11/06/17 00:49 97 11/05/17 23:53 87 16 97 Weight Weight 61.235 kg I&O: 11/05/17 11/06/17 11/07/17 06:59 06:59 06:59 Intake Total 240 1600 240 Output Total 400 2800 Balance -160 -1200 240 Result Diagrams: 11/05/17 01:15 11/05/17 01:15 <Lokesh Boudreaux A - Last Filed: 11/06/17 10:55> Phys Exam - Physical Examination Constitutional: NAD HEENT: moist MMs Neck: no nodes, supple Respiratory: no wheezing, no rales Mild crackles in lung base Cardiovascular: RRR, no significant murmur Gastrointestinal: soft Musculoskeletal: no edema Neurological: non-focal, moves all 4 limbs Lymphatic: no nodes Psychiatric: normal affect, A&O x 3 Skin: no rash <Luis Tavarez Odalys - Last Filed: 11/06/17 09:14> Dx/Plan (1) COPD exacerbation Code(s): J44.1 - CHRONIC OBSTRUCTIVE PULMONARY DISEASE W (ACUTE) EXACERBATION Status: Acute Plan: Continue treatment with steroid, albuterol and azithromycin. Patient is off of supplemental O2 (2) Cocaine abuse Code(s): F14.10 - COCAINE ABUSE, UNCOMPLICATED Status: Chronic Plan: Positve on UDS. Counseled patient extensively. (3) Diastolic CHF, chronic Code(s): I50.32 - CHRONIC DIASTOLIC (CONGESTIVE) HEART FAILURE Status: Chronic Plan: May be cause of her acute episode of SOB yesterday which may have responded to lasix. Recent echo was done august this year. Continue to monitor, BNP was not elevated this stay so unlikely to be primary reason for SOB (4) GERD (gastroesophageal reflux disease) Code(s): K21.9 - GASTRO-ESOPHAGEAL REFLUX DISEASE WITHOUT ESOPHAGITIS Status: Chronic Plan: Chronic issue under control. Continue famotidine. (5) HLD (hyperlipidemia) Code(s): E78.5 - HYPERLIPIDEMIA, UNSPECIFIED Status: Chronic QualifierTitle: Hyperlipidemia type: unspecified Qualified Code(s): E78.5 - Hyperlipidemia, unspecified Plan: Known chronic issue on admission. Plan to continue simvastatin (6) Hypertension Code(s): I10 - ESSENTIAL (PRIMARY) HYPERTENSION Status: Chronic QualifierTitle: Hypertension type: unspecified Qualified Code(s): I10 - Essential (primary) hypertension Plan: Chronic issue on admission. Stable during her stay. Plan to continue lisinopril, (7) Acute respiratory failure with hypoxia Code(s): J96.01 - ACUTE RESPIRATORY FAILURE WITH HYPOXIA Status: Acute Plan: Resolved issue. <Luis Tavarez M - Last Filed: 11/06/17 09:14> Attending Addendum - Attending Addendum Date/Time: 11/06/17 1055 I personally evaluated the patient and discussed the management with Dr. Tavarez. I agree with the History, Examination, Assessment and Plan documented above with any addition or exceptions noted below. <Lokesh Boudreaux - Last Filed: 11/06/17 10:55>
[2017-11-06] MEDS ORDERED: Benzonatate 100 MG CAP PO SCH (15:00)
== END 2017-11-06 11:44 | disposition home or self-care (01) ==
LOC: ERS 00:36 → 2SW 03:01 → INTOOBSV 03:01
PROVIDERS: ADMIT Family Medicine; ATTEND Family Medicine
DX: J44.1 Chronic obstructive pulmonary disease with (acute) exacerbation (principal); J96.01 Acute respiratory failure with hypoxia; I11.0 Hypertensive heart disease with heart failure; I50.32 Chronic diastolic (congestive) heart failure; K21.9 Gastro-esophageal reflux disease without esophagitis; E78.5 Hyperlipidemia, unspecified; F14.10 Cocaine abuse, uncomplicated; Z79.899 Other long term (current) drug therapy; Z79.82 Long term (current) use of aspirin; Z87.891 Personal history of nicotine dependence
CPT/HCPCS: 36415; 71045; 71046; 71275; 80053; 80306; 82553; 82805; 83880; 84484; 85025; 87040; 93005; 93010; 94640; 94644; 94760; 96361; 96365; 96367; 96372; 96375; A4216; G0378; J0456; J1650; J1940; J1956; J3475; J7050; J7506; J7611; J7620; J7644; Q0162

== ENCOUNTER 2017-11-20 03:56 | Emergency (ER) | payer OTHER ==
[2017-11-20 04:44] LABS: #Lymphocytes 2.9 thou/uL (1.20-3.40); #Monocytes 0.6 thou/uL (0.11-0.59); #Neutrophils 9.7 thou/uL (1.40-6.50); %Basophils 0.3 % (0.0-1.0); %Eosinophils 0.2 % (0.0-10.0); %Lymphocytes 21.7 % (21.0-51.0); %Monocytes 4.7 % (0.0-10.0); %Neutrophils 73.2 % (42.0-75.0); Hemoglobin 11.8 g/dL (12.0-16.0); Mean Corpuscular HGB CONC 33.4 g/dL (32.0-36.0); Mean Corpuscular Volume 83.8 fL (78.0-98.0); Platelet Count 256 thou/uL (130-400); RBC Distribution Width 14.6 % (11.5-14.5); Red Blood Cell (RBC) Count 4.21 mill/uL (4.20-5.40); White Blood Cell (WBC) Count 13.3 thou/uL (4.8-10.8)
[2017-11-20] MEDS ORDERED: Nitroglycerin 2% Ointment 1 INCH/1 GM Packet ONE (04:46)
[2017-11-20 04:56] LABS: ALT (SGPT) 13 U/L (8-55); AST (SGOT) 18 U/L (5-34); Albumin 4.1 g/dL (3.4-4.8); Alkaline Phosphatase 88 U/L (40-150); Anion Gap 13 mmol/L (10-20); BUN (Urea Nitrogen) 20 mg/dL (9.8-20.1); Bilirubin, Total 0.3 mg/dL (0.2-1.2); CK (CPK) 338 U/L (29-168); Calc. Creatinine Clearance 0 mL/min (70-130); Calcium 9.4 mg/dL (7.8-10.44); Carbon Dioxide 21 mmol/L (23-31); Chloride 108 mmol/L (98-107); Estimated GFR-MDRD 76; Globulin 2.9 g/dL (2.4-3.5); Glucose 106 mg/dL (80-115); Lipase 10 U/L (8-78); Sodium 138 mmol/L (136-145)
[2017-11-20 05:01] LABS: Troponin I 0.015 ng/mL (< 0.028)
[2017-11-20 05:02] LABS: CKMB 10.9 ng/mL (0-6.6)
--- NOTE | 2017-11-20 08:16 | RAD ---
SINGLE VIEW CHEST: Date: 11/20/17 COMPARISON: 11/05/17. HISTORY: Dyspnea and chest pain. FINDINGS: Single view of the chest shows a normal sized cardiomediastinal silhouette. There is no evidence of c onsolidation, mass, or pleural effusion. The bones are unremarkable. IMPRESSION: No evidence of acute cardiopulmonary disease. POS: [facility]
--- NOTE | 2017-11-21 13:03 | EKG ---
Test Reason : CP Blood Pressure : / mmHG Vent. Rate : 090 BPM Atrial Rate : 090 BPM P-R Int : 116 ms QRS Dur : 096 ms QT Int : 386 ms P-R-T Axes : 079 078 257 degrees QTc Int : 472 ms Normal sinus rhythm Right atrial enlargement Left ventricular hypertrophy with repolarization abnormality Abnormal ECG Confirmed by SCHUYLER BUENO, DL ([id number]), state editor NANETTE LANDA ([id number]) on 11/21/2017 1:02:47 PM Referred By: Confirmed By:DL PAYAN MD
== END 2017-11-20 06:05 | disposition home or self-care (01) ==
LOC: ERS 03:56
DX: R07.89 Other chest pain (principal); F14.10 Cocaine abuse, uncomplicated; E78.5 Hyperlipidemia, unspecified; I10 Essential (primary) hypertension; J45.909 Unspecified asthma, uncomplicated; Z91.14 Patient's other noncompliance with medication regimen; Z79.82 Long term (current) use of aspirin; Z79.899 Other long term (current) drug therapy; Z87.891 Personal history of nicotine dependence
CPT/HCPCS: 36415; 71045; 80053; 82550; 82553; 83690; 84484; 85025; 93005

== ENCOUNTER 2017-12-13 21:14 | Inpatient (IN) | payer OTHER, SELFPAY ==
[2017-12-13] MEDS ORDERED: methylPREDNISolone Sod Succ/PF 125 MG/2 ML VIAL ONE (21:17)
[2017-12-13] MEDS ORDERED: Water For Inject, Bacteriostat 30 ML ONE (21:17)
[2017-12-13] MEDS ORDERED: fentaNYL Citrate/PF 2,000 MCG in Sodium Chloride 0.9% 60 ML IV SCH (21:32)
[2017-12-13 21:38] LABS: #Eosinphils 0.1 thou/uL (0.0-0.7); #Lymphocytes 5.3 thou/uL (1.20-3.40); #Monocytes 0.8 thou/uL (0.11-0.59); #Neutrophils 4.9 thou/uL (1.40-6.50); %Basophils 0.3 % (0.0-1.0); %Eosinophils 0.6 % (0.0-10.0); %Lymphocytes 47.6 % (21.0-51.0); %Monocytes 7.2 % (0.0-10.0); %Neutrophils 44.2 % (42.0-75.0); Hemoglobin 14.2 g/dL (12.0-16.0); Mean Corpuscular HGB CONC 34.2 g/dL (32.0-36.0); Mean Corpuscular Hemoglobin 29.1 pg (27.0-31.0); Mean Corpuscular Volume 85.2 fL (78.0-98.0); Mean Platelet Volume 8.1 fL (7.4-10.4); Platelet Count 313 thou/uL (130-400); RBC Distribution Width 14.4 % (11.5-14.5); Red Blood Cell (RBC) Count 4.88 mill/uL (4.20-5.40)
[2017-12-13 21:48] LABS: ALT (SGPT) 22 U/L (8-55); AST (SGOT) 27 U/L (5-34); Albumin 4.3 g/dL (3.5-5.0); Alkaline Phosphatase 114 U/L (40-150); Anion Gap 18 mmol/L (10-20); BUN (Urea Nitrogen) 19 mg/dL (7.0-18.7); Bilirubin, Total 0.3 mg/dL (0.2-1.2); CK (CPK) 509 U/L (29-168); Calc. Creatinine Clearance 0 mL/min (70-130); Calcium 9.7 mg/dL (7.8-10.44); Carbon Dioxide 19 mmol/L (22-29); Chloride 106 mmol/L (98-107); Estimated GFR-MDRD 40; Globulin 3.6 g/dL (2.4-3.5); Glucose 234 mg/dL (70-105); Lipase 25 U/L (8-78); Potassium 4.2 mmol/L (3.5-5.1); Protein, Total 7.9 g/dL (6.0-8.3); Sodium 139 mmol/L (136-145)
[2017-12-13] MEDS ORDERED: Nitroglycerin 50 MG/250 ML BOT 250 ML ONE (21:51)
[2017-12-13] MEDS ORDERED: Furosemide 40 MG/4 ML VIAL ONE ×2 (21:51→21:54)
[2017-12-13 21:52] LABS: Troponin I 0.038 ng/mL (< 0.028)
[2017-12-13 21:55] LABS: CKMB 6.8 ng/mL (0-6.6)
[2017-12-13] MEDS ORDERED: Magnesium 5 GM/10 ML Abboject SYRINGE ONE (22:00)
[2017-12-13 22:13] LABS: Actual Bicarbonate (HCO3a) 23.9 mEq/L (22-28); Base Excess (BEa) -3.9 mEq/L (-2.0 to +3.0); CO2 Tension 54.3 mmHg (35.0-45.0); Hematocrit-ABG 48.4 % (36.0-47.0); Hemoglobin (Hb) 14.7 g/dL (12.0-16.0); O2 Tension (PaO2) 60.5 mmHg (80.0-100.0); pH, Arterial 7.26 (7.35-7.45)
[2017-12-13 22:14] LABS: ALV-art Gradient 228.125 (0-20); Analyzer IN Cardio ER; Calcium, Ionized 1.3 mmol/L (1.12-1.30); Puncture Site L FEMORAL A LINE
[2017-12-13 22:16] LABS: Acetaminophen Less than 6.0 mcg/mL (10.0-30.0); Alcohol Less than 10 mg/dL (Less than 10); Salicylate Less than 8.0 mg/dL (15.0-30.0)
[2017-12-13 22:36] LABS: Prothrombin Time 12.9 SEC (12.0-14.7)
--- NOTE | 2017-12-13 22:38 | RAD ---
AP CHEST: Indication: Emergency examination. History of intubation. FINDINGS: The patient is intubated. The tip of the ET tube is 3.8 cm below the level of the joyce. Gastric cat heter projects beyond the left hemidiaphragm and out of the field of view. The perihilar airspace opa city is nonspecific and may reflect hemorrhage, edema, or pneumonia. Heart size is normal. No pleural effusions or pneumothorax is evident. No acute osseous abnormality is evident. IMPRESSION: 1. Perihilar airspace opacity may reflect hemorrhage, edema, or pneumonia. 2. ET tube and orogastric tube as above. POS: [facility]
--- NOTE | 2017-12-13 22:51 | RAD ---
PORTABLE CHEST: History: Central line placement. Comparison: 9:20 p.m. 12-13-17 FINDINGS/IMPRESSION: ET tube has tip above the joyce. An NG tube has been placed and its tip passes through the EG juncti on and is not visualized on this film. A central line has been placed through the right jugular and the tip overlies the SVC. Bilateral lung infiltrates are again seen, unchanged from the film earlier. POS: [facility]
[2017-12-13 22:54] LABS: Bilirubin Negative (Negative); Blood, Urine Trace (Negative); Clarity CLEAR (Clear); Glucose, Urine (Dipstick) 100 mg/dL (Negative); Leukocyte Negative (Negative); Nitrite Negative (Negative); Protein, Urine (Dipstick) 100 mg/dL (Neg-Trace); Specific Gravity, Urine 1.008 (1.002-1.036); Urobilinogen 0.2 mg/dL (0.2-1.0); pH, Urine 6.5 (5.0-9.0)
[2017-12-13 22:56] LABS: Bacteria/HPF None Seen HPF (None Seen); Hyaline Casts/LPF 0-3 HYALINE CAST LPF (0-3 Hyaline); Pathc Cast-AUWi Flag 0.29 (0-2.49); RBC/HPF 0-3 HPF (0-3); Squamous Epithelial 0-3 HPF (0-3); WBC/HPF 0-3 HPF (0-3)
[2017-12-13 23:04] LABS: Amphetamine Not Detected (NotDetected); Barbiturates Screen Not Detected (NotDetected); Benzodiazepine Screen Not Detected (NotDetected); Cocaine Metabolite Screen Detected (NotDetected); Medtox Control Line Valid? VALID (VALID); Medtox Reader # READER 4; Methadone Not Detected (NotDetected); Methamphetamine Not Detected (NotDetected); Opiate Screen Not Detected (NotDetected); Oxycodone Screen Not Detected (NotDetected); Phencyclidine (PCP) Not Detected (NotDetected); THC/Cannabinoid Screen Not Detected (NotDetected); Tricyclic Screen Not Detected (NotDetected)
[2017-12-14] MEDS ORDERED: Ventilator Sedation Protocol 1 EACH FS ONE (00:16)
[2017-12-14] MEDS ORDERED: Acetaminophen 650 MG Suppository PR PRN (00:20)
[2017-12-14] MEDS ORDERED: Ondansetron HCl/PF 4 MG/2 ML Vial IVP PRN (00:20)
[2017-12-14] MEDS ORDERED: Nitroglycerin 50 MG/250 ML BOT 250 ML IVPB SCH (00:30)
[2017-12-14] MEDS ORDERED: Propofol 1,000 MG/100 ML VIAL IV PRN (00:36)
[2017-12-14] MEDS ORDERED: Fentanyl BOLUS 250 ML IVPB PRN (00:36)
[2017-12-14] MEDS ORDERED: Lorazepam 2 MG/ML VIAL SLOW IVP PRN (00:36)
[2017-12-14] MEDS ORDERED: Propofol BOLUS 1,000 MG/100 ML VIAL IV PRN (00:36)
[2017-12-14 01:32] LABS: Lactic Acid 2.7 mmol/L (0.5-2.2)
[2017-12-14 02:10] VITALS: BMI 26.6
--- NOTE | 2017-12-14 05:32 | HP ---
CODE STATUS: FULL CODE. PRIMARY CARE PHYSICIAN: None reported. TIME OF EVALUATION: 11:20 p.m. CHIEF COMPLAINT: Patient went into respiratory distress and collapsed in [facility]. HISTORY OF PRESENT ILLNESS: This is a 62-year-old female with past medical history, is unable to obt ain. She came to the hospital. The patient was at [facility], and it looks like patient went into resp iratory distress and suddenly collapsed, was unable to breathe, patient was intubated and brought int o the hospital, it looks like the patient has had some problem in [facility] and went into acute distres s, blood pressure was found to be in the range of 200, there was a drop in saturation, symptoms have resolved after intubation. Patient is intubated and sedated during my examination. REVIEW OF SYSTEMS: Unable to obtain, patient is intubated and sedated. PAST MEDICAL HISTORY: Unable to obtain. PAST SURGICAL HISTORY: Unable to obtain. PSYCHIATRIC HISTORY: Unable to obtain. SOCIAL HISTORY: Unable to obtain. FAMILY HISTORY: Unable to obtain. ALLERGIES: Unable to obtain. REPORTED MEDICATIONS: Unable to obtain. PHYSICAL EXAMINATION: VITAL SIGNS: On initial presentation, blood pressure 292/118, heart rate 142, respiratory rate was 3 2, oxygen saturation was 100 and blood pressure has improved after the patient has been on drip with nitroglycerin. GENERAL APPEARANCE: Patient is sedated, intubated. HEENT: Eyes, normal conjunctivae. Moist oral mucosa. Anicteric. NECK: Bilateral JVD. RESPIRATORY: Bilateral air entry. The patient had bilateral rales, no wheezing. Symmetric expansio n. CARDIOVASCULAR: The patient is tachycardic, sinus rhythm, no murmurs, no gallop. No edema. ABDOMEN: Soft. Normal bowel sounds. MUSCULOSKELETAL: Baseline range of motion and strength. No evidence of any new abnormalities. SKIN: Warm and intact. No pallor rash or redness. NEUROLOGIC: Intubated, sedated, unable to fully explore. No history of any new focal weakness. PSYCHIATRIC: Unable to explore. EKG: Reviewed and discussed with performing physician from ER. Patient has a sinus tachycardia at a rate of [address]-T wave changes going into anterolateral ischemia. RADIOLOGY: Chest shows pulmonary edema. ET tube with tip above joyce. NG tube was placed and pass ed through PEG junction and was not visualized in this film, central line in the right IJ with tips o verlying the SVC. Bilateral lung infiltrates are seen again unchanged from film earlier. LABORATORY DATA: Reviewed. White blood cell count is 11, hemoglobin 14, platelet count 315. Blood gas was done and pH 7.26, pCO2 of 54, pO2 of 60 was done on SIMV 14, 50%, 500, pressure support of 10 and PEEP of 5. Chemistry: Sodium 139, potassium 4.2, chloride 106, carbon dioxide 16, anion gap 18 , BUN 19, creatinine 1.39, GFR 40, glucose 234. Lactic acid initially 5.4 came down to 2.7. CK 509, CK-MB 6.8, troponin 0.038, beta-natriuretic peptide 225. UA was done and was negative. Salicylates were negative. The rest of screen was negative except for cocaine that was detected on the drug scr een. ASSESSMENT AND PLAN: The patient will be placed in ICU for the following medical problems. Critical care time, more than 35 minutes expanded in bedside assessment, review of records, original records, coordination of care. 1. Acute hypoxia and hypercapnic respiratory failure likely secondary to pulmonary edema. The patie nt is intubated, sedated, patient has ____ occasionally was able to answer simple questions, was aler t. We will treat the underlying condition. We will consult Pulmonary for assistance with this case. 2. Flash pulmonary edema, likely secondary to multiple etiologies. 3. Hypertensive emergency with very high blood pressure that could be secondary to distress in this scene as reported by EMS, due to problems with the [employer] staff, but also the patient is positive fo r cocaine, could be secondary to cocaine intoxication. The patient has been started on nitroglycerin drip, has responded well, blood pressure has been well controlled now. We will avoid beta blockers, patient will be placed on ICU. On monitor, Cardiology evaluation in the morning. 4. Acute congestive heart failure exacerbation, BNP is high, flash pulmonary edema, we will continue Lasix, continue ventilatory support. We will do echo in the morning. 5. Cocaine intoxication, ____ could be also present in the findings seen on chest x-ray, patient wang l need to be advised to stop using drugs. 6. Lactic acidosis, on presentation. Lactic acid 5.4, came down to 2.7, likely secondary to sustain ed hypoxia. 7. Possible chronic kidney disease. This is acute kidney injury could be secondary to hypertensive emergency. We will monitor kidney function, will hydrate. We will treat accordingly. May need Neph ro for us in this case. 8. Mildly elevated troponin 0.038, likely secondary to non-STEMI type 2, we will trend, we will soumya t accordingly. 9. Deep venous thrombosis prophylaxis.
[2017-12-14 05:59] LABS: #Basophils 0.2 thou/uL (0.0-0.2); #Lymphocytes 0.9 thou/uL (1.20-3.40); #Monocytes 0.1 thou/uL (0.11-0.59); #Neutrophils 8.8 thou/uL (1.40-6.50); %Basophils 1.7 % (0.0-1.0); %Eosinophils 0.1 % (0.0-10.0); %Lymphocytes 9.3 % (21.0-51.0); %Monocytes 1.3 % (0.0-10.0); %Neutrophils 87.7 % (42.0-75.0); Hemoglobin 12.5 g/dL (12.0-16.0); Mean Corpuscular HGB CONC 33.3 g/dL (32.0-36.0); Mean Corpuscular Hemoglobin 27.7 pg (27.0-31.0); Mean Corpuscular Volume 83.2 fL (78.0-98.0); Platelet Count 298 thou/uL (130-400); RBC Distribution Width 14.4 % (11.5-14.5); White Blood Cell (WBC) Count 10.1 thou/uL (4.8-10.8)
[2017-12-14] MEDS: Furosemide 40 MG/4 ML VIAL SLOW IVP SCH ×2 (06:02→14:32)
[2017-12-14 06:34] LABS: Anion Gap 11 mmol/L (10-20); BUN (Urea Nitrogen) 26 mg/dL (9.8-20.1); Calc. Creatinine Clearance 46 mL/min (70-130); Calcium 9.8 mg/dL (7.8-10.44); Carbon Dioxide 27 mmol/L (23-31); Chloride 106 mmol/L (98-107); Estimated GFR-MDRD 52; Glucose 151 mg/dL (80-115); Potassium 4.2 mmol/L (3.5-5.1); Sodium 140 mmol/L (136-145)
--- NOTE | 2017-12-14 08:44 | CON ---
DATE OF CONSULTATION: 12/14/2017 This is a 62-year-old female who is presently intubated on the vent, sedated. Alycia vela as outlined from the ER, presented with increasing shortness of breath. She was intubated. She has seen Dr. Romero in the past in our office. She has longstanding history o f tobacco abuse, cocaine abuse, diastolic dysfunction. She is presently intubated. Though we had turned the sedation off, she was awake. PAST MEDICAL HISTORY: Hypertension, asthma, cocaine abuse, lipid disorder, COPD, diastolic dysfuncti on. PAST SURGICAL HISTORY: , back surgery, colonoscopy. MEDICATIONS: A list of medicine from home includes prednisone, tramadol, Zocor, Spiriva, Advair, william apentin, Zestril, aspirin. She is presently on morphine, nitroglycerin, Fentanyl and Lasix. . REVIEW OF SYSTEMS: Unobtainable. PHYSICAL EXAMINATION: VITAL SIGNS: Pulse 81, blood pressure 151/72, sats 100%, respirations 19. Sedation was withheld. CHEST: Chest revealed decreased breath sounds without any wheezing. CARDIAC: Normal S1, S2, no gallops. ABDOMEN: Soft. No mass. LABORATORY: Creatinine 1.26. Chest x-ray shows mild cephalization. White count 10,000, H&H 12 and 37, platelet count 298. She has got cocaine in her urine. IMPRESSION: 1. Respiratory failure, diastolic dysfunction. 2. Chronic obstructive pulmonary disease exacerbation. 3. Cocaine abuse. 4. Azotemia. PLAN: Neb treatments, steroids have been initiated. Empiric antibiotics. Will get results of the e cho. Hopefully, she can be weaned and extubated in the next 24 hours. This is a 45 minute critical care time.
[2017-12-14 09:14] LABS: Actual Bicarbonate (HCO3a) 22.4 mEq/L (22-28); Base Excess (BEa) -1.9 mEq/L (-2.0 to +3.0); CO2 Tension 36.9 mmHg (35.0-45.0); O2 Tension (PaO2) 103.2 mmHg (> 80.0)
[2017-12-14 09:15] LABS: Calcium, Ionized 1.2 mmol/L (1.12-1.30); Hemoglobin (Hb) 13.2 g/dL (12.0-16.0)
[2017-12-14 09:16] LABS: ALV-art Gradient 207.175 (0-20); Puncture Site LR
--- NOTE | 2017-12-14 10:13 | CT ---
PRELIMINARY REPORT/[facility]/EMERGENTY AFTER-HOURS PROCEDURE CT Head Without Intravenous Contrast CLINICAL HISTORY: 51 years old, female; Signs and symptoms; Other: SOB; Patient HX: Additional history obtained from em s, f50 presents to ed via ems transport C/O SOB. Pt was at [facility], [place] when she asked another individual to call 911, who instructed caller to lay pt on ground. Ems notes oa to scene, pt was in distress. Em s reports expiratory wheezing. En route, no iv access established, duo neb x 2, pt placed on o2 non r e-breather, spo2 <50 initially, with highest reading 80%. No similar pmhx. TECHNIQUE: Axial computed tomography images of the head/brain without intravenous contrast. COMPARISON: No relevant prior studies available. FINDINGS: Brain: Normal. Ventricles: Normal. Bones/joints: Normal. No acute fracture. Soft tissues: Normal. Sinuses: Normal. Mastoid air cells: Normal as visualized. No mastoid effusion. IMPRESSION: Normal head/brain CT. Thank you for allowing us to participate in the care of your patient. Dictated and Authenticated by: Pierre Haider MD 12/14/2017 1:11 AM Central Time ([place] & [place]) FINAL REPORT CT BRAIN WITHOUT CONTRAST: HISTORY: Altered mental status. COMPARISON: CT brain from 02/19/17 . FINDINGS: No acute hemorrhage or infarct. No midline shift or mass effect. Ventricular size and extraaxial CS F spaces are normal. Paranasal sinuses and mastoids are clear. IMPRESSION: No acute intracranial abnormality. POS: [facility]
[2017-12-14] MEDS: Aspirin 325 MG TAB PO SCH (10:27)
[2017-12-14] MEDS: cefTRIAXone\\ROCEPHIN 1 GM in Sodium Chloride 0.9% 100 ML IVPB SCH (10:29)
[2017-12-14] MEDS: Enoxaparin Sodium 40 MG/0.4 ML SYRINGE SC SCH (10:29)
[2017-12-14] MEDS ORDERED: DC Sedation Protocol FS ONE (10:58)
[2017-12-14] MEDS ORDERED: Amlodipine 5 MG TAB PO SCH (11:15)
--- NOTE | 2017-12-14 12:37 | PDOC.PN ---
- Subjective Encounter Start Date: 12/14/17 Encounter Start Time: 12:34 Subjective: extubated, no chest pain or sob - Objective Resuscitation Status: Resuscitation Status FULL:Full Resuscitation MAR Reviewed: Yes Vital Signs & Weight: Vital Signs (12 hours) Temp Pulse Resp BP Pulse Ox 12/14/17 11:14 98 178/56 H 12/14/17 11:01 98 27 H 100 12/14/17 11:00 100 12/14/17 10:44 82 187/55 H 12/14/17 10:43 85 20 100 12/14/17 09:03 94 152/52 H 12/14/17 08:37 17 12/14/17 08:00 98.3 F 94 16 100 12/14/17 06:59 74 132/49 L 12/14/17 06:00 18 12/14/17 04:00 97.9 F 18 12/14/17 02:28 77 12/14/17 02:00 98.8 F 18 12/14/17 01:00 98.8 F 77 18 100 Weight Admit Weight 136 lb 7.458 oz Weight 136 lb 7.458 oz Most Recent Monitor Data Heart Rate from ECG 98 NIBP 186/63 NIBP BP-Mean 109 Respiration from ECG 34 SpO2 100 I&O: 12/13/17 12/14/17 12/15/17 06:59 06:59 06:59 Intake Total 64.2 16.3 Output Total 1245 590 Balance -1180.8 -573.7 Result Diagrams: 12/14/17 05:50 12/14/17 05:50 Phys Exam - Physical Examination Neck: no JVD few posr rales, marked clearing Cardiovascular: RRR, no significant murmur Gastrointestinal: soft, positive bowel sounds Musculoskeletal: no edema Dx/Plan (1) Pulmonary edema Code(s): J81.1 - CHRONIC PULMONARY EDEMA Status: Acute (2) Hypertensive urgency Code(s): I16.0 - HYPERTENSIVE URGENCY Status: Acute (3) Acute respiratory failure with hypoxemia Code(s): J96.01 - ACUTE RESPIRATORY FAILURE WITH HYPOXIA Status: Acute (4) Cocaine abuse Code(s): F14.10 - COCAINE ABUSE, UNCOMPLICATED Status: Acute (5) Acute renal failure Status: Acute - Plan off vent -: control BP -: serial lab * .
[2017-12-14] MEDS ORDERED: Simethicone Chewable 80 MG TAB PO PRN (15:37)
[2017-12-14] MEDS ORDERED: hydrALAZINE 25 MG TAB PO SCH (17:45)
[2017-12-14] MEDS ORDERED: Acetaminophen 325 MG TAB PO PRN (20:24)
[2017-12-14] MEDS: Polyethylene Glycol 3350 17 GM Packet PO PRN (20:44)
[2017-12-14] MEDS: Amlodipine 5 MG TAB PO SCH (20:45)
[2017-12-14] MEDS: hydrALAZINE 25 MG TAB PO SCH (20:46)
[2017-12-14] MEDS: Calcium Carbonate 500 MG ChewTAB PO PRN (23:26)
[2017-12-15] MEDS: Furosemide 40 MG/4 ML VIAL SLOW IVP SCH ×2 (05:19→14:54)
[2017-12-15 06:00] LABS: #Lymphocytes 1.6 thou/uL (1.20-3.40); #Monocytes 0.6 thou/uL (0.11-0.59); #Neutrophils 16.5 thou/uL (1.40-6.50); %Lymphocytes 8.7 % (21.0-51.0); %Monocytes 3.2 % (0.0-10.0); Hemoglobin 10.9 g/dL (12.0-16.0); Mean Corpuscular HGB CONC 33.6 g/dL (32.0-36.0); Mean Corpuscular Hemoglobin 28.2 pg (27.0-31.0); Mean Corpuscular Volume 83.7 fL (78.0-98.0); Mean Platelet Volume 8.3 fL (7.4-10.4); Platelet Count 267 thou/uL (130-400); RBC Distribution Width 14.4 % (11.5-14.5); Red Blood Cell (RBC) Count 3.86 mill/uL (4.20-5.40); White Blood Cell (WBC) Count 18.8 thou/uL (4.8-10.8)
[2017-12-15 06:20] LABS: Anion Gap 13 mmol/L (10-20); BUN (Urea Nitrogen) 24 mg/dL (9.8-20.1); Calc. Creatinine Clearance 59 mL/min (70-130); Calcium 10.2 mg/dL (7.8-10.44); Carbon Dioxide 25 mmol/L (23-31); Chloride 105 mmol/L (98-107); Estimated GFR-MDRD 72; Glucose 131 mg/dL (80-115); Potassium 4.1 mmol/L (3.5-5.1); Sodium 139 mmol/L (136-145)
[2017-12-15 06:21] LABS: Troponin I 0.062 ng/mL (< 0.028)
--- NOTE | 2017-12-15 06:21 | CON ---
DATE OF CONSULTATION: 12/14/[address] Mckeon nurse practitioner. Dr. Mckeon is a analysis mgr. ROOM NUMBER: C6. PRIMARY CARE DOCTOR: [facility]. The patient's primary analysis mgr going to be Dr. Maria Guadalupe Lora. REFERRING DOCTOR: Shadi Duenas M.D. REASON FOR CARDIOLOGY CONSULTATION: Flash pulmonary edema. HISTORY OF PRESENT ILLNESS: Ms. Holloway is 62 years old -[place] female with significant hist ory of hypertension, COPD, hyperlipidemia, and cocaine abuse. On night of 12/13/2017, patient was at the [facility]. After she ate dinner of the year, she started having shortness of breath which getting worse and she is passing out. She knew that she is almost passing out at that time. She had a hist ory of multiple falls due to the similar symptoms before due to chronic obstructive pulmonary disease exacerbation. Prior to this admission, she has had heaviness in her chest for 1 week. When she ate that increased the gas in her stomach, after she having a tablespoon of mustard to help her symptoms . She is a current cocaine user. She used to use cocaine every day, last use was 3 days ago. She h ad a complaint of headache lately. But however, during the initial Cardiology consult assessment, th e patient denied any chest pain or heaviness or discomfort in her chest, palpitation, fluttering, diz ziness or lightheadedness. She has a slight headache. Other than that, she does not have any other cardiac complaints. She is stable with room air at this moment. She has had a stress test years ago for evaluation for disability and she was told that the patient's stress test was normal and she has had a carotid Doppler study years ago since then she told me that nobody call her for the result. PAST MEDICAL HISTORY: 1. Hypertension. 2. Hyperlipidemia. 3. Chronic obstructive pulmonary disease. 4. Chronic headache. 5. Cocaine abuse. PAST SURGICAL HISTORY: 1. x2. 2. Diffusion to the back. FAMILY HISTORY: There is significant history of hypertension in her family. The patient's mother de ceased due to brain aneurysm and the patient's younger brother underwent CABG twice, the first one wa s at the age of around 40s. SOCIAL HISTORY: She lives with her roommate who can help her to support each other. She had [facility] who lives in [place] and several grandchildren and great-grandchildren, they have lived well. S he is an ex-smoker. She has quit about 5 months ago. She is ex-EtOH abuse, quit last month. She co ntinues having cocaine abuse almost every day, the last one 3 days ago. ALLERGIES: No known drug allergies. CURRENT MEDICATIONS: The patient's home medication is aspirin 81 mg once a day, lisinopril 5 mg once a day, gabapentin 600 mg at the bedtime, RVR 1 puff daily, Spiriva daily, simvastatin 20 mg once a d ay, tramadol 50 mg 3 times a day, prednisone 40 mg once a day, ipratropium bromide 0.2 mg inhaler 3 t imes a day. REVIEW OF SYSTEMS: The following complete review of systems was negative, unless otherwise mentioned in the HPI or below. Constitutional: Sense of well. He did well-being, ability to conduct usual a ctivities, exercise tolerance. Skin: Rash, itching, change, itching or bruise. Eyes: No vision ch jaren, double vision, tearing, blind spot. HEENT: Positive for headache, but negative for vertigo, l ightheadedness, nose bleeds, obstruction. She does not have any denture. She is supposed to see the dentist next month for denture. Cardiovascular: Precordial pain, palpitations, orthopnea, nocturna l dyspnea, edema, cyanosis, claudication. Respiratory: Positive for shortness of breath and wheezin g. Gastrointestinal: Poor appetite, dysphagia, nausea, vomit, jaundice, constipation, and diarrhea. Genitourinary: Urgency, frequency, dysuria, nocturia, hematuria, polyuria, oliguria, unusual color of urine. Musculoskeletal: Able to move all extremities. No immediate of motion, redness, or heat of the muscle or joint at this moment. Neurologic: Conversion, paralyzed, tremor, incoordination e xcept when she is on drug. Psychiatric: Emotional problem, anxiety, depression. She has been in [facility] for several times prior to this admission for a history of cocaine abuse. ALLERGIES: No known drug allergies. PHYSICAL EXAMINATION: VITAL SIGNS: Blood pressure 184/52, pulse is 90-100, and O2 sat 98% on room air, respiratory rate is 16. GENERAL: Well-developed, well-nourished without any acute distress. HEAD: Normocephalic, atraumatic. EYES: Extraocular muscle movement intact. NECK: No JVD. Neck supple, normal range of motion. LUNGS: Very diminished at the bases, but no wheezing or rhonchi or rales noted. CARDIOVASCULAR: Regular rate and rhythm, normal S1 and S2. There are no S3, S4. There are signific ant murmur to the right mediastinal border, 2+ pulses in all extremities. No edema in the bilateral lower extremities. Carotid pulses are present, but also present in the bilateral carotid arteries. ABDOMEN: Soft, nontender or mass to palpate, nondistended. Bowel sounds are present. MUSCULOSKELETAL: Able to move all extremities. SKIN: Warm and dry and no skin rash or lesion or bruise noted. NEUROLOGIC: Alert, oriented x4 awake, normal affect. Nonfocal. PSYCHIATRIC: Mood and affect are normal. EKG: A 12-lead EKG shows sinus tachycardia. LABORATORY DATA: WBC 10.1, hemoglobin 12.5, hematocrit 37.4, platelets 298. Sodium 140, potassium 4 .2, BUN 26. Creatinine 1.26, which was 1.39 yesterday. Glucose 151. Lactate acid 5.4 to 2.7. CK w as 509, CK-MB 6.8. Troponin was 3.0 and 3.8. TSH is 6.1287. The patient's chest x-ray shows bilate ral lung infiltrates and CT brain shows normal head brain CT result. ASSESSMENT AND PLAN: 1. Flash pulmonary edema. She is on the Lasix 40 mg twice a day. The patient's condition is stable at this moment. We like to continue and also she is on lisinopril 5 mg once a day. The patient's e chocardiogram was taken and that result is pending at this moment. Hypertension urgency. The patien t on the nitroglycerin drip at this moment, we would like to increase amlodipine from 5 mg once a day to twice a day and also hydralazine 25 mg 3 times a day starting from today. But due to history of chronic obstructive pulmonary disease, beta-kristen has not started and due to acute kidney renal ins ufficiency, we like to keep the lisinopril 5 mg once a day at this moment. 2. Acute congestive heart failure exacerbation with elevated BNP. The patient's BNP was 225.9 on . The patient's echocardiogram was done and the result is pending at this moment. The patie nt's condition is stable with Lasix and AMADEO inhibitor. We like to continue current medication and ad just as appropriate. 3. Hyperlipidemia. The patient on Zocor 20 mg once a day. 4. Elevated TSH. The patient's TSH level was 6.1287. She is not on any thyroid medication at this moment. We would like to defer to the patient's primary care doctor ____. 5. Cocaine abuse. After a long discussion about cocaine abuse affecting patient's heart, patient ag aditi to stop using illicit drug abuse and the patient would like to stay away from alcohol and tobacc o at this moment. Thank you very much for allowing the Cardiology Service to participate in the care of this patient. We will follow along with the patient care team and make further recommendations as appropriate.
--- NOTE | 2017-12-15 07:07 | CON ---
DATE OF CONSULTATION: 12/14/2017 CARDIOLOGY NOTE Please see the note already dictated by the nurse practitioner, Ramila. INDICATION FOR CONSULTATION: A 62-year-old female with acute pulmonary edema with a history of hyper tension and also illicit drug use. She was seen in the hospital by me recently, I believe back in [facility] or August of this year with an episode of congestive heart failure. She does have a history of di astolic dysfunction. She was admitted at that time also had hypertension. She had, I believe, was p ositive for cocaine and she had the slightly abnormal cardiac enzymes. It was felt most likely due t o her underlying demand ischemia associated with her hypertension and the cocaine abuse and tachycard ia. At this time, she had recently been discharged from the hospital. She was at [facility] and then s destiny became short of breath. She was helped by one of the other customers at the store and then s he required intubation there and was brought to the emergency room here, she was found to have signif icant hypertension. At this time, she is more comfortable in the Intensive Care Unit. She does have some tachycardia with EKG changes when she is significantly tachycardia, which could be compatible w ith her some underlying ischemia. She does have hypertension, but this has been under better control . O2 saturations are 100%, respiratory rate is 20. Her only complaint at this time is abdominal willie n. She also has a long history of COPD. She had a stress test earlier this year, which was unremark able for any evidence of ischemia. Her ejection fraction also has remained stable, more than 60%. S he does have left ventricular hypertrophy and diastolic dysfunction. PAST MEDICAL HISTORY: Her past medical history is significant for COPD, hypertension, gastroesophage al reflux disease, dyslipidemia, polysubstance drug abuse. SURGICAL HISTORY: She had a and back surgery. FAMILY HISTORY: Noncontributory. SOCIAL HISTORY: She continues to use cocaine and crack cocaine. She is over [id number] history o f smoking. Please refer to the notes dictated by the nurse practitioner for her family history, social history, and review of systems. PHYSICAL EXAMINATION: GENERAL: Reveals an elderly female, who actually appears older than her stated age. VITAL SIGNS: Blood pressure 154/59 at this time, heart rate 110 and shows a sinus tachycardia, O2 sa turations are 100%, respiratory rate is 21. HEENT: Exam shows head to be normocephalic, atraumatic. She has IV line in the right IJ. She also has bilateral carotid bruits noted, this may be radiating from the aortic area. CHEST: Her lungs are actually clear to auscultation at this time without any rales, rhonchi or wheez ing. CARDIOVASCULAR: Exam reveals a regular rhythm, somewhat tachycardic. She has a systolic murmur over the aortic area, actually it radiates all over the entire precordium. She has a systolic murmur at the apex. There is a significant murmur over the aortic area, most likely compatible with aortic daly ve sclerosis or stenosis. ABDOMINAL EXAM: Somewhat tender, slightly tympanic. Positive bowel sounds are present, but she mendoza s have bilateral intercostal discomfort. EXTREMITIES: Pedal pulses are present. There is no lower extremity edema. NEUROLOGIC: She appears to be intact. LABORATORY DATA AND X-RAY FINDINGS: I did not see any recent laboratory data, this has perhaps [facility] where her laboratory data . Her last labs on the computer here are from 11/20/2017, which showed elevation of the CK-MB. The BNP was not significantly elevated. Drug screen was positive for cocaine. Her sodium was 141. Hemoglobin 14.7. BNP was 225. Her creatinine is 1.39. Her CK was 5 09. Her lactic acid was 5.4. Her troponin I was 0.038, which is still indeterminate, and CPK MB was 6.8 with normal being up to 6.6. Hemoglobin was 14.2. ASSESSMENT AND PLAN: 1. At this time, we will continue to monitor her very carefully. She eventually may need to undergo a cardiac catheterization as a definitive evaluation for underlying coronary artery disease with EKG changes. She has sinus rhythm with ST segment depression when she is tachycardic, somewhat suspicio us for underlying coronary artery disease. We would be more than happy to continue to follow the pat ient with you. When she is more stable, then we would rediscuss about possible cardiac catheterizati on. Most likely, her EKG changes are related to her underlying tachycardia and possibly demand ische kimberly. We would be more than happy to continue to follow the patient with you, but perhaps she will ne ed to undergo a cardiac catheterization also. 2. Cardiac murmur. We will need to repeat the echocardiogram. This appears to be some degree of ao rtic stenosis or sclerosis that was not mentioned in the previous echocardiogram. Also, she appears to have bilateral carotid bruits, this may be radiation from the aortic area. We will need to addres s this also with ultrasound of carotids. 3. History of abdominal discomfort, whether this was due to constipation or some other etiology is y et to be determined. Hopefully, she will have a bowel movement. She has been constipated. If this does not alleviate the problem, She may need to undergo a CT scan of the abdomen. 4. Hypertension. This will be managed by the primary care service. We will continue to follow the patient with you throughout her hospital course.
[2017-12-15] MEDS ORDERED: Iopamidol 370 76% 50 ML VIAL FS ONE (08:40)
[2017-12-15] MEDS ORDERED: Iopamidol 370 76% 100 ML VIAL ONE (08:40)
[2017-12-15] MEDS ORDERED: Amlodipine 5 MG TAB PO SCH (09:00)
[2017-12-15] MEDS ORDERED: Lisinopril 5 MG TAB PO SCH (09:00)
--- NOTE | 2017-12-15 10:11 | RAD ---
CHEST ONE VIEW: History: Dyspnea. Follow up. Comparison: 12-14-17 FINDINGS: Cardiac silhouette is magnified by projection. Pulmonary vasculature is now within normal limits. Med iastinum is midline with a right internal jugular central venous catheter. Nasogastric tube and endot kelsea catheter are no longer visible. No lobar consolidation or evidence of pneumothorax. Cardiac m onitor leads overlie the chest. IMPRESSION: 1. Significant interval improvement in aeration of the lungs with decrease in pulmonary vascular eddie estion. 2. Removal of the endotracheal catheter and nasogastric tube. POS: [facility]
[2017-12-15] MEDS: hydrALAZINE 25 MG TAB PO SCH ×3 (11:22→21:41)
[2017-12-15] MEDS: Enoxaparin Sodium 40 MG/0.4 ML SYRINGE SC SCH (11:23)
[2017-12-15] MEDS: cefTRIAXone\\ROCEPHIN 1 GM in Sodium Chloride 0.9% 100 ML IVPB SCH (11:23)
[2017-12-15] MEDS: Aspirin 325 MG TAB PO SCH (11:25)
[2017-12-15] MEDS: Amlodipine 5 MG TAB PO SCH ×2 (11:25→21:41)
--- NOTE | 2017-12-15 13:22 | PDOC.PN ---
- Subjective Encounter Start Date: 12/15/17 Encounter Start Time: 13:20 Subjective: no chest pain or sob - Objective Resuscitation Status: Resuscitation Status FULL:Full Resuscitation MAR Reviewed: Yes Vital Signs & Weight: Vital Signs (12 hours) Temp Pulse Resp BP Pulse Ox 12/15/17 12:00 98.6 F 12/15/17 11:25 96 130/109 H 12/15/17 11:22 88 130/109 H 12/15/17 10:51 96 22 H 98 12/15/17 06:52 120 H 24 H 94 L 12/15/17 04:00 98.9 F 12/15/17 02:38 113 H 25 H Weight Admit Weight 136 lb 7.458 oz Weight 133 lb 2.547 oz Most Recent Monitor Data Heart Rate from ECG 92 NIBP 141/46 NIBP BP-Mean 97 Respiration from ECG 18 SpO2 100 I&O: 12/14/17 12/15/17 12/16/17 06:59 06:59 06:59 Intake Total 64.2 1180.3 30 Output Total 1245 2755 535 Balance -1180.8 -1574.7 -505 Result Diagrams: 12/15/17 05:24 12/15/17 05:24 Radiology Reviewed by me: Yes (cxr- no edema or cardiomegaly) Phys Exam - Physical Examination Neck: no JVD Respiratory: clear to auscultation bilateral Cardiovascular: RRR, no significant murmur Gastrointestinal: soft, non-tender, no distention Musculoskeletal: no edema Dx/Plan (1) Pulmonary edema Code(s): J81.1 - CHRONIC PULMONARY EDEMA Status: Resolved (2) Hypertensive urgency Code(s): I16.0 - HYPERTENSIVE URGENCY Status: Resolved (3) Acute respiratory failure with hypoxemia Code(s): J96.01 - ACUTE RESPIRATORY FAILURE WITH HYPOXIA Status: Resolved (4) Cocaine abuse Code(s): F14.10 - COCAINE ABUSE, UNCOMPLICATED Status: Acute (5) Acute renal failure Status: Resolved (6) HTN (hypertension) Code(s): I10 - ESSENTIAL (PRIMARY) HYPERTENSION Status: Acute (7) Tobacco abuse Code(s): Z72.0 - TOBACCO USE Status: Acute (8) Demand ischemia Code(s): I24.8 - OTHER FORMS OF ACUTE ISCHEMIC HEART DISEASE Status: Acute - Plan deescalate care -: move to [facility] -: poss cardiac cath * .
[2017-12-15] MEDS: Calcium Carbonate 500 MG ChewTAB PO PRN ×2 (14:50→21:46)
[2017-12-15] MEDS: Polyethylene Glycol 3350 17 GM Packet PO PRN (14:54)
[2017-12-15] MEDS ORDERED: ISOVUE-370 76%-LOCM 1 ML ONE ×2 (14:55)
[2017-12-15] MEDS ORDERED: Communication Order-Pharmacy FS SCH (15:30)
[2017-12-15 15:38] LABS: Troponin I 0.042 ng/mL (< 0.028)
--- NOTE | 2017-12-15 15:38 | PDOC.CTH ---
Cardiology Progress Note - Objective Vital Signs Temp Pulse Resp BP Pulse Ox 12/15/17 15:20 98 24 H 100 12/15/17 15:17 96 130/109 H 12/15/17 12:00 98.6 F 12/15/17 11:25 96 130/109 H 12/15/17 11:22 88 130/109 H 12/15/17 10:51 96 22 H 98 12/15/17 08:00 98.6 F 97 22 H 100 12/15/17 06:52 120 H 24 H 94 L 12/15/17 04:00 98.9 F Admit Weight 136 lb 7.458 oz Weight 133 lb 2.547 oz 12/14/17 12/15/17 12/16/17 06:59 06:59 06:59 Intake Total 64.2 1180.3 270 Output Total 1245 2755 695 Balance -1180.8 -1574.7 -425 - Physical Examination General/Neuro: alert & oriented x3 Neck: no JVD present Lungs: CTA Heart: RRR Abdomen: soft Extremities: other: (No edema) - Telemetry Telemetry Rhythm: SR ST 90-110s with ST change with ST - Labs Result Diagrams: 12/15/17 05:24 12/15/17 05:24 Troponin/CKMB CK-MB (CK-2) 6.8 ng/mL (0-6.6) H* 12/13/17 21:20 Troponin I 0.062 ng/mL (< 0.028) H 12/15/17 05:24 - Assessment/Plan 1. CP with ST changes - STAT cath today; Reglan 10mg IV push will be given since she had lunch @ 1200 today. cont. NTG drip. Pulm. Edema - stable 2. HTN urgency - stable with current med, NTG IV drip, and hydoralazine IV push PRN 3. COPD - stable 4. Hyperlipidemia - 5. Polysubstance abuse - cessation education given MAR reviewed Review of Systems - Review of Systems Constitutional: reports: no symptoms reported EENTM: reports: no symptoms reported Respiratory: reports: no symptoms reported Cardiac (ROS): reports: no symptoms reported ABD/GI: reports: no symptoms reported
[2017-12-15 15:40] LABS: CKMB 16.2 ng/mL (0-6.6)
[2017-12-15] MEDS ORDERED: Metoclopramide HCl 10 MG/2 ML VIAL IVP SCH (15:45)
[2017-12-15] MEDS ORDERED: Lidocaine 1% (PF) 30 ML VIAL ONE (16:04)
[2017-12-15] MEDS ORDERED: Acetaminophen/Codeine 30-300mg Tablet PO PRN ×4 (17:39→18:34)
[2017-12-15] MEDS ORDERED: traMADol HCl 50 MG TAB PO PRN ×2 (17:39→18:34)
[2017-12-15] MEDS ORDERED: Nitroglycerin 0.4 MG TAB (25 Tab Bottle) SL PRN ×2 (17:39→18:34)
[2017-12-15] MEDS ORDERED: Sodium Chloride 0.9% 200 ML IV SCH ×2 (17:45→18:34)
--- NOTE | 2017-12-15 18:50 | CT ---
CT ANGIOGRAM OF THE CHEST 12/15/17 HISTORY: Evaluate for ascending thoracic aortic dissection. COMPARISON: CT angiogram chest 11/05/17. TECHNIQUE: CT angiogram of the thoracic aorta is performed. Three dimensional reformatted images are submitted f or interpretation. FINDINGS: trachea and central bronchi are patent. there are patchy ground glass opacities throughout the lung p arenchyma. No definite masses or consolidation. Dependent atelectatic changes in both lower lobes. Em physematous changes in both upper lobes are noted. There is no mediastinal lymphadenopathy. The central pulmonary arteries are adequately opacified. No filling defects. Heart size is upper normal. The visualized upper solid organs are unremarkable. CT ANGIOGRAM: The aortic root is unremarkable. The ascending thoracic aorta, aortic arch have appropriate enhanceme nt and luminal diameter. There is atherosclerosis with significant narrowing with mild to moderate or igin of the left carotid artery as well as the left subclavian artery. The left vertebral artery appe ars to directly originate from the aortic arch. With regard to the descending thoracic aorta, there i s eccentric thrombus formation and calcified plaque. No high grade stenosis. Throughout the thoracic aorta, no evidence of dissection. The celiac artery is unremarkable. The mid superior mesenteric mao ry demonstrates moderate stenosis. IMPRESSION: 1. No evidence of aneurysm or dissection in the visualized aorta. 2. Atherosclerosis as described above. Findings are unchanged from CT from 11/05/17. POS: [facility]
[2017-12-15] MEDS ORDERED: Lisinopril 10 MG TAB PO SCH (21:30)
[2017-12-15] MEDS ORDERED: niCARdipine HCl 25 MG in Sodium Chloride 0.9% 250 ML 240 ML IVPB SCH (22:30)
[2017-12-15] MEDS: Mag-Al 1200 mg/1200 mg/30 ML UDCUP PO PRN (22:47)
--- NOTE | 2017-12-15 22:51 | CON ---
DATE OF CONSULTATION: 12/15/2017 HISTORY OF PRESENT ILLNESS: Ms. Holloway is a very pleasant woman who was at [facility] yesterday and sta rted feeling uncomfortable in her chest. She asked that EMS to be called. She apparently went into respiratory distress and collapsed. She did not require intubation. She was extremely hypertensive on presentation with blood pressure 290/118, heart rate of 140. She was placed on nitroglycerin drip examined her in the ICU. She is awake and alert, sitting in a chair and said she was hungry a nd wanted to eat. PAST MEDICAL HISTORY: Remarkable for; 1. COPD. 2. Hypertension. 3. Reflux disease. 4. Lipid disorder. 5. History of section. 6. History of back surgery. FAMILY HISTORY: Negative for lung disease at an early age. REVIEW OF SYSTEMS: Ten points otherwise negative. PHYSICAL EXAMINATION: VITAL SIGNS: Blood pressure of 115/36 earlier today. She has been intermittently hypertensive. HEENT: Pupils are equal. Sclerae are anicteric. NECK: Supple. No lymphadenopathy. LUNGS: Clear when I saw her. HEART: Regular rate and rhythm. No S3. Heart rate was right around 100 when I examined her. ABDOMEN: Soft and nontender. EXTREMITIES: Without clubbing, cyanosis, or edema. NEUROLOGIC: Nonfocal. IMAGING: Chest radiograph suggestive of pulmonary edema on presentation. After I evaluated, her nitroglycerin was weaned off. Within 10 minutes of sitting bolt upright and h olding her chest with a clenched fist sign, complaining that she was having the exact same systems sh e had yesterday in [facility]. An EKG was done and the nitroglycerin was restarted and her symptoms gra dually resolved. Cardiology has been notified. IMPRESSION: ? unstable angina, clinically certainly looks like it blood pressure was not elevated wh en she was having chest discomfort likely it was when she came in. Her blood pressure did get up int o the 170s and heart rate got up into the 130s while she was having chest discomfort. Once the nitro glycerin restarted, this all calmed down. Cardiac catheterization is being contemplated. Critical care time was 30 minutes.
[2017-12-16 05:11] LABS: #Lymphocytes 0.9 thou/uL (1.20-3.40); #Monocytes 0.3 thou/uL (0.11-0.59); #Neutrophils 16.1 thou/uL (1.40-6.50); %Eosinophils 0.1 % (0.0-10.0); %Monocytes 1.5 % (0.0-10.0); %Neutrophils 93.5 % (42.0-75.0); Hemoglobin 10.8 g/dL (12.0-16.0); Mean Corpuscular HGB CONC 32.9 g/dL (32.0-36.0); Mean Corpuscular Hemoglobin 27.6 pg (27.0-31.0); Mean Corpuscular Volume 83.6 fL (78.0-98.0); Mean Platelet Volume 8.3 fL (7.4-10.4); Platelet Count 285 thou/uL (130-400); RBC Distribution Width 14.5 % (11.5-14.5); Red Blood Cell (RBC) Count 3.92 mill/uL (4.20-5.40); White Blood Cell (WBC) Count 17.2 thou/uL (4.8-10.8)
[2017-12-16] MEDS: Furosemide 40 MG/4 ML VIAL SLOW IVP SCH ×2 (05:23→14:42)
[2017-12-16 05:24] LABS: Anion Gap 17 mmol/L (10-20); BUN (Urea Nitrogen) 38 mg/dL (9.8-20.1); Calc. Creatinine Clearance 45 mL/min (70-130); Calcium 9.5 mg/dL (7.8-10.44); Carbon Dioxide 23 mmol/L (23-31); Chloride 102 mmol/L (98-107); Estimated GFR-MDRD 53; Glucose 177 mg/dL (80-115); Potassium 4.1 mmol/L (3.5-5.1); Sodium 138 mmol/L (136-145)
[2017-12-16] MEDS: Lisinopril 20 MG TAB PO SCH (08:20)
[2017-12-16] MEDS: Mag-Al 1200 mg/1200 mg/30 ML UDCUP PO PRN ×2 (08:20→17:44)
[2017-12-16] MEDS: Aspirin 325 MG TAB PO SCH (08:20)
[2017-12-16] MEDS: cefTRIAXone\\ROCEPHIN 1 GM in Sodium Chloride 0.9% 100 ML IVPB SCH (08:21)
[2017-12-16] MEDS: Carvedilol 3.125 MG TAB PO SCH ×2 (08:21→17:44)
[2017-12-16] MEDS: hydrALAZINE 25 MG TAB PO SCH ×3 (08:21→21:30)
[2017-12-16] MEDS: Amlodipine 5 MG TAB PO SCH ×2 (08:21→21:31)
--- NOTE | 2017-12-16 08:40 | RAD ---
PORTABLE CHEST: Date: 12/16/17 COMPARISON: Prior day's study. FINDINGS: Heart size is within normal limits. Lungs are clear of infiltrates. Right-sided central line is uncha nged in position. IMPRESSION: Stable chest. POS: [facility]
[2017-12-16] MEDS: Sodium Chloride 0.45% 1,000 ML IV SCH ×2 (10:32→21:34)
--- NOTE | 2017-12-16 11:50 | PDOC.PN ---
- Subjective Encounter Start Date: 12/16/17 Encounter Start Time: 11:49 Subjective: pain on swalling - Objective Resuscitation Status: Resuscitation Status FULL:Full Resuscitation MAR Reviewed: Yes Vital Signs & Weight: Vital Signs (12 hours) Temp Pulse Resp BP Pulse Ox 12/16/17 10:52 93 19 99 12/16/17 08:21 88 171/42 H 12/16/17 08:20 171/42 H 12/16/17 08:00 97.4 F L 88 18 100 12/16/17 07:15 99 12/16/17 07:12 88 22 H 99 12/16/17 07:00 97.4 F L 12/16/17 04:00 98.4 F 12/16/17 02:43 93 20 98 12/16/17 00:00 97.6 F Weight Admit Weight 136 lb 7.458 oz Weight 132 lb 7.965 oz Most Recent Monitor Data Heart Rate from ECG 90 NIBP 130/41 NIBP BP-Mean 64 Respiration from ECG 19 SpO2 100 I&O: 12/15/17 12/16/17 12/17/17 06:59 06:59 06:59 Intake Total 1180.3 1650 580 Output Total 2755 2455 875 Balance -1574.7 -805 -295 Result Diagrams: 12/16/17 05:00 12/16/17 05:00 Radiology Reviewed by me: Yes (cxr- no chf, infiltrate, etc) EKG Reviewed by me: Yes (ct chest , no disetion etc) Phys Exam - Physical Examination Neck: no JVD Respiratory: clear to auscultation bilateral Cardiovascular: RRR, no significant murmur Gastrointestinal: soft, positive bowel sounds Musculoskeletal: no edema Dx/Plan (1) Pulmonary edema Code(s): J81.1 - CHRONIC PULMONARY EDEMA Status: Resolved (2) Hypertensive urgency Code(s): I16.0 - HYPERTENSIVE URGENCY Status: Resolved (3) Acute respiratory failure with hypoxemia Code(s): J96.01 - ACUTE RESPIRATORY FAILURE WITH HYPOXIA Status: Resolved (4) Cocaine abuse Code(s): F14.10 - COCAINE ABUSE, UNCOMPLICATED Status: Acute (5) Acute renal failure Status: Resolved (6) HTN (hypertension) Code(s): I10 - ESSENTIAL (PRIMARY) HYPERTENSION Status: Acute (7) Tobacco abuse Code(s): Z72.0 - TOBACCO USE Status: Acute (8) Demand ischemia Code(s): I24.8 - OTHER FORMS OF ACUTE ISCHEMIC HEART DISEASE Status: Acute - Plan cardiac cath normal -: BP controlled -: move to floor -: GI consult for EGD * .
--- NOTE | 2017-12-16 12:11 | PDOC.CTH ---
<Ramila Shaffer - Last Filed: 12/16/17 12:09> Cardiology Progress Note - Subjective The pt seen and examined. No overnight events. No cardiac complaints. She has small BM today. - Objective Vital Signs Temp Pulse Resp BP Pulse Ox 12/16/17 10:52 93 19 99 12/16/17 08:21 88 171/42 H 12/16/17 08:20 171/42 H 12/16/17 08:00 97.4 F L 88 18 100 12/16/17 07:15 99 12/16/17 07:12 88 22 H 99 12/16/17 07:00 97.4 F L 12/16/17 04:00 98.4 F 12/16/17 02:43 93 20 98 Admit Weight 136 lb 7.458 oz Weight 132 lb 7.965 oz 12/15/17 12/16/17 12/17/17 06:59 06:59 06:59 Intake Total 1180.3 1650 580 Output Total 2755 2455 875 Balance -1574.7 -805 -295 - Physical Examination General/Neuro: alert & oriented x3 Neck: no JVD present Lungs: CTA Heart: RRR Abdomen: soft Extremities: other: (No edema) - Telemetry Telemetry Rhythm: SR - Labs Result Diagrams: 12/16/17 05:00 12/16/17 05:00 Troponin/CKMB CK-MB (CK-2) 16.2 ng/mL (0-6.6) H* 12/15/17 15:05 Troponin I 0.042 ng/mL (< 0.028) H 12/15/17 15:05 - Assessment/Plan 1. CP with ST changes - S/p LHC with normal Coronary Arteries on 12/15/17; 2. Pulm. Edema - stable 3. HTN urgency - stable with current med; cont. to monitor 4. COPD - stable 5. Hyperlipidemia - will resume Simvatiatin 20mg qd. 6. Polysubstance abuse - cessation education given MAR reviewed Review of Systems - Review of Systems Constitutional: reports: no symptoms reported EENTM: reports: no symptoms reported Respiratory: reports: no symptoms reported Cardiac (ROS): reports: no symptoms reported ABD/GI: reports: see HPI : reports: no symptoms reported Musculoskeletal: reports: no symptoms reported <Cassidy Lora - Last Filed: 12/16/17 18:38> Cardiology Progress Note - Objective Vital Signs Temp Pulse Resp BP BP Pulse Ox 12/16/17 16:12 98.3 F 87 17 116/64 94 L 12/16/17 15:11 84 15 12/16/17 15:05 98.2 F 84 16 95 12/16/17 14:41 93 122/45 L 12/16/17 12:00 98.4 F 12/16/17 10:52 93 19 99 12/16/17 08:21 88 171/42 H 12/16/17 08:20 171/42 H 12/16/17 08:00 97.4 F L 88 18 100 12/16/17 07:15 99 12/16/17 07:12 88 22 H 99 12/16/17 07:00 97.4 F L Admit Weight 136 lb 7.458 oz Weight 132 lb 7.965 oz 12/15/17 12/16/17 12/17/17 06:59 06:59 06:59 Intake Total 1180.3 1650 1132 Output Total 2755 2455 1000 Balance -1574.7 -805 132 - Labs Result Diagrams: 12/16/17 05:00 12/16/17 05:00 Troponin/CKMB CK-MB (CK-2) 16.2 ng/mL (0-6.6) H* 12/15/17 15:05 Troponin I 0.042 ng/mL (< 0.028) H 12/15/17 15:05 - Assessment/Plan Pt. seen and eval. by me. Still having some abd. discomfort. I agree with the A/ P by the OIL FIELD TESTER. The cardiac status is stable. She has normal coronaries and a normal LV function. The BP is better. I will sign off. If any further cardiac issues please ask me to see the pt. again.
--- NOTE | 2017-12-16 13:42 | CON ---
DATE OF CONSULTATION: 12/16/2017 REASON FOR CONSULTATION: Dysphagia, chest pain. HISTORY: Ms. Holloway is a 62-year-old female who developed some shortness of breath and chest pain wh ile shopping at [employer] yesterday. She did have some respiratory distress, but did not require intub ation in the field. She was hypertensive on initial presentation, but blood pressure has been normal ized by the time she was admitted to the ICU. The patient underwent a catheterization that showed no rmal coronaries. This was a question of aortic dissection; however, subsequent CT was normal. Misael nt reports having a 2 month history of having recurrent dysphagia to solids. She has no problem with having liquids. She denies any weight loss. She denies having any antecedent reflux symptoms such as heartburn or regurgitation. She does not have any persistent localized abdominal pain. Her bowel function had been normal prior to admission. There was no nausea, vomiting, altered bowel function or evidence of GI bleeding such as melena, hematochezia, or rectal bleeding. PAST MEDICAL HISTORY: 1. COPD. 2. Hypertension. 3. Hyperlipidemia. 4. History of back surgery and . HOME AT MEDICATIONS: Include ipratropium bromide inhaler, lisinopril, aspirin, gabapentin, Advair Di skus, Spiriva inhaler, simvastatin, tramadol p.r.n., and prednisone 40 mg daily. ALLERGIES: None. SOCIAL HISTORY: Patient has a history of illicit drug use. She has long history of cigarette smokin g, stopped 3 months ago. Denies any alcohol usage. FAMILY HISTORY: Negative for any known GI problem, liver disease, GI malignancy. Father with questi on of prostate cancer. REVIEW OF SYSTEMS: Ten point review of systems did not show any other pertinent positive or negative . PHYSICAL EXAMINATION: VITAL SIGNS: Temperature is 97.4, blood pressure 130/41, pulse of 93. GENERAL: She is alert, conversant and in no distress. HEENT: Shows anicteric sclerae. Oropharynx clear. NECK: Supple. CARDIOVASCULAR: Shows normal S1, S2, regular rate and rhythm. CHEST: Shows breath sounds. ABDOMEN: Soft. Mildly protuberant, but no distention, no palpable mass, organomegaly. Good bowel s ounds. No bruit. EXTREMITIES: Shows no edema. LABORATORY DATA: WBC 17.2, hemoglobin 10.8, MCV of 83, platelet count of 285. Sodium 138, potassium 4.1, chloride 102, CO2 23, creatinine 1.24, BUN of 38. ASSESSMENT: 1. Two month history of dysphagia to solids. Esophageal stricture suspected. With history of smoki ng, malignancy needs to be excluded. 2. Atypical chest pain, negative coronaries on catheterization. 3. Chronic obstructive pulmonary disease. 4. Hypertension. RECOMMENDATIONS: 1. Upper endoscopy with possible esophageal dilatation tomorrow. 2. We will place patient on pantoprazole 40 mg every day for now. 3. Further recommendation to follow depending on endoscopic findings. Indication and risks of procedure were explained to Jewel. She agrees to proceed.
--- NOTE | 2017-12-16 15:36 | EKG ---
Test Reason : Blood Pressure : / mmHG Vent. Rate : 097 BPM Atrial Rate : 097 BPM P-R Int : 108 ms QRS Dur : 126 ms QT Int : 426 ms P-R-T Axes : 081 097 -71 degrees QTc Int : 541 ms Sinus rhythm with short IL Right atrial enlargement Right bundle branch block T wave abnormality, consider inferolateral ischemia Abnormal ECG When compared with ECG of 13-DEC-2017 21:30, (Unconfirmed) IL interval has decreased Vent. rate has decreased BY 55 BPM Right bundle branch block is now Present Confirmed by KEO BUENO, DR. Soriano ([id number]) on 12/16/2017 3:35:49 PM Referred By: JOSE D Confirmed By:DR. Bo CROWLEY MD
--- NOTE | 2017-12-16 18:21 | PRG ---
DATE OF SERVICE: 12/16/2017 SUBJECTIVE: _mrs Holloway went to [facility] last night. No critical coronary lesions were identified. Gastroenterology was consulted today because of ongoing complaints of odynophagia and dysphagia, chest discomfort. She probably will look like she was having a myocardial infarction yesterday when she was having chest pain. I suppose some of this could be esophageal spasm. OBJECTIVE: LUNGS: Clear today. HEART: Regular rhythm. ABDOMEN: Soft. IMPRESSION: 1. Stable chronic obstructive pulmonary disease. 2. Hypertensive pulmonary edema, on presentation. 3. Chest pain suggestive of coronary ischemia with a negative catheterization. 4. Dysphasia suggestive of a stricture plus or minus esophageal spasm. Await endoscopy. She is stable to move out of the Critical Care Unit in my opinion. CONRAD
[2017-12-16] MEDS ORDERED: Atorvastatin Calcium 10 MG TAB PO SCH (21:00)
[2017-12-17 04:04] LABS: #Lymphocytes 4.4 thou/uL (1.20-3.40); #Monocytes 1.4 thou/uL (0.11-0.59); #Neutrophils 9.6 thou/uL (1.40-6.50); %Basophils 0.1 % (0.0-1.0); %Lymphocytes 28.6 % (21.0-51.0); %Monocytes 9.3 % (0.0-10.0); %Neutrophils 61.9 % (42.0-75.0); Hemoglobin 10.7 g/dL (12.0-16.0); Mean Corpuscular HGB CONC 34.2 g/dL (32.0-36.0); Mean Corpuscular Hemoglobin 28.6 pg (27.0-31.0); Mean Corpuscular Volume 83.6 fL (78.0-98.0); Mean Platelet Volume 8.3 fL (7.4-10.4); Platelet Count 246 thou/uL (130-400); RBC Distribution Width 14.2 % (11.5-14.5); Red Blood Cell (RBC) Count 3.74 mill/uL (4.20-5.40); White Blood Cell (WBC) Count 15.5 thou/uL (4.8-10.8)
[2017-12-17 04:23] LABS: Anion Gap 11 mmol/L (10-20); BUN (Urea Nitrogen) 40 mg/dL (9.8-20.1); Calc. Creatinine Clearance 52 mL/min (70-130); Calcium 9.1 mg/dL (7.8-10.44); Carbon Dioxide 28 mmol/L (23-31); Chloride 102 mmol/L (98-107); Estimated GFR-MDRD 63; Glucose 91 mg/dL (80-115); Potassium 4.3 mmol/L (3.5-5.1); Sodium 137 mmol/L (136-145)
[2017-12-17] MEDS: Carvedilol 3.125 MG TAB PO SCH ×2 (06:37→16:10)
[2017-12-17] MEDS: Furosemide 40 MG/4 ML VIAL SLOW IVP SCH ×2 (06:37→13:42)
[2017-12-17] MEDS: cefTRIAXone\\ROCEPHIN 1 GM in Sodium Chloride 0.9% 100 ML IVPB SCH (08:33)
[2017-12-17] MEDS: Amlodipine 5 MG TAB PO SCH (10:45)
[2017-12-17] MEDS: Aspirin 325 MG TAB PO SCH (10:45)
[2017-12-17] MEDS: hydrALAZINE 25 MG TAB PO SCH ×2 (10:45→16:09)
[2017-12-17] MEDS: Sodium Chloride 0.45% 1,000 ML IV SCH ×2 (10:45→16:11)
[2017-12-17 10:46] VITALS: BP 116/64
[2017-12-17] MEDS: Lisinopril 20 MG TAB PO SCH (10:46)
[2017-12-17 10:59] VITALS: TEMP 98.3
[2017-12-17] MEDS ORDERED: PROPOFOL 200 MG/20 ML VIAL ONE (13:37)
[2017-12-17] MEDS ORDERED: Lidocaine 1% PF 5 ML VIAL ONE (13:37)
--- NOTE | 2017-12-17 14:04 | OP ---
SALINAS OF PROCEDURE: 12/17/2017 SURGEON: Nguyễn Diaz M.D. PREOPERATIVE DIAGNOSES: 1. Dysphagia. 2. Atypical chest pain. 3. The patient is edentulous. No weight loss with dysphagia. POSTOPERATIVE DIAGNOSES: 1. Three centimeter hiatal hernia with no evidence of stricturing or inflammation at the GE junction . 2. Normal esophagus. 3. Empiric dilatation performed with 54-Zimbabwean Zelaya dilator with no effect on second look. 4. Normal stomach and duodenum. ANESTHESIA: TIVA. PROCEDURE IN DETAIL: After the patient was informed of the risks, benefits, possible complications o f endoscopy including perforation, bleeding, reactions to medication and aspiration, informed consent was obtained. The patient brought to the endoscopy suite where she was sedated in gradual fashion. Once she was comfortable, a bite block placed in the incisural orifice. The endoscope was advanced through the esophagus, stomach and second and third portion of duodenum and slowly removed. There wa s good visualization of mucosa. The esophagus was normal in appearance. There was a 3 cm hiatal her nolan, sliding type with no evidence of esophagitis or strictures. The stomach was entered and found t o be normal in forward and retroflexed views. The pyloric channel was patent. The duodenum was norm al to the third portion. Retroflexed views in the stomach were normal. The scope was then removed. Empiric dilatation performed with 54-Zimbabwean Zelaya dilator. Second look showed no effect. The sco pe was removed. The patient tolerated the procedure well with no complications. RECOMMENDATIONS: 1. Soft foods as the patient is edentulous. 2. PPI daily would be reasonable for reflux. I will sign off at this time. If you need any further assistance in her care please do not hesitate to contact us. If she has ongoing issues with chest pain if it is radiating could consider evaluatin g the gallbladder.
[2017-12-17] MEDS: Mag-Al 1200 mg/1200 mg/30 ML UDCUP PO PRN (14:55)
--- NOTE | 2017-12-17 17:43 | DIS ---
DATE OF ADMISSION: 12/13/2017 DATE OF DISCHARGE: 12/17/2017 [facility] Call admission for Carline. FINAL DIAGNOSES: Acute respiratory failure with acute pulmonary edema, hypertensive urgency, acute r enal failure, demand ischemia, cocaine abuse, tobacco abuse, hypertension, chronic obstructive pulmon antonio disease. DISCHARGE MEDICATIONS: The patient was discharged on prednisone 40 mg a day, hydralazine 5 mg 3 time s a day, Protonix 40 mg a day, lisinopril 5 mg a day, Lasix 40 mg a day, Coreg 3.125 mg twice a day, aspirin 325 mg a day, Norvasc 5 mg twice a day, aspirin 81 mg a day, Advair Diskus 150 one puff daily , Spiriva one inhalation daily, Zocor 20 mg a day. ALLERGIES: No known drug allergies. PENDING AT THE TIME OF DISCHARGE: Nothing. CODE STATUS: FULL. DIET: Heart healthy. HOSPITAL COURSE: Patient was admitted to the hospital to the Intensive Care Unit through [facility]. She was brought in respiratory distress after collapsing at [facility]. She was intuba jaime, sedated during the ER visit, diagnosed acute hypoxic hypercapnic respiratory failure with pulmon antonio edema, hypertensive emergency with blood pressure to 92/118, pulse 142. She was moved to the [facility] ensive Care Unit. She was treated aggressively, ventilation, IV nitro for blood pressure control. H er initial laboratory, white count 11.0, hemoglobin 14.2, platelet count 313,000. INR was 1.0. Init ial blood gas, pH 7.26, O2 60.5, pCO2 54.3. Chemistries: Creatinine 1.39, BUN 19, CO2 19. Sodium a nd potassium normal. Lactic acid 5.4. Liver function test unremarkable. Troponin 0.038, CK-MB 6.8. TSH 6.1. Drug screen positive for cocaine. She was seen in consultation by Cardiology, Ramila morton for Dr. Terrance Lora, Dr. Rashid Lomas for Gastroenterology and Dr. Shoaib Jean Baptiste for Pulmonology, Dr. Terrance brice on later the day of admission began following her. By the time, she had been extubated, no chest pain, no shortness of breath. Her initial chest x-ray showed diffuse pulmonary edema. Followup [facility] st x-ray the next day showed significant interval improvement with removal of endotracheal tube and n asogastric tube. On 12/15/2017, she had no chest pain or shortness of breath. Her blood pressure wa s rapidly being controlled with oral medicines. She was still on the IV nitro being tapered down. O n 12/16/2017, she has got pain on swallowing. On 12/15/2017, she had a cardiac catheterization which was unremarkable. No coronary artery disease, Dr. Nguyễn Diaz performed an EGD because of pa in on swallowing, which revealed a 3 cm hiatal hernia with no evidence of stricturing or inflammation etcetera. Currently, the patient is doing fine. She is desirous of going home. I have written her discharge. She has been instructed to see PCP in 1 week. Prescriptions have been written for the m edicines she is on. Currently, blood pressure 116/64, pulse 76, respirations 16. Cardiorespiratory exam normal. FINAL COMMENT: I think all of this lady's problems were caused by severe hypertension, off medicines with the addition of cocaine to put her into a hypertensive crisis. She has been counseled about th e fact that continuing use of cocaine may be fatal to her.
[2017-12-18] MEDS ORDERED: Furosemide 40 MG TAB PO SCH (07:30)
--- NOTE | 2017-12-18 09:01 | PRG ---
DATE: 12/17/17 Ms. Holloway is a 62-year-old female who is clinically doing much better. PHYSICAL EXAMINATION: VITAL SIGNS: Heart rate is in the 70s, respiratory rates in the teens, blood pressure 116/64. She has not had any blood pressure spikes since 08:21 yesterday morning. LUNGS: Clear. HEART: Regular rhythm. ABDOMEN: Soft. She has undergone endoscopy, which did not show stricture. She was empirically dilated. IMPRESSION: 1. Chest pain with hypertensive pulmonary edema with a negative cardiac catheterization 2. History of dysphagia for 2 months with no structural abnormality seen on endoscopy ? esophageal dysmotility or esophageal spasm. 3. History of chronic obstructive pulmonary disease which has not been a clinical issue during this admission. 4. Past history of drug abuse. 5. Past history of asthma. 6. History of lipid disorder. 7. Hypertensive diastolic dysfunction. From my standpoint, she is stable, I will sign off. MTDD
--- NOTE | 2017-12-18 10:42 | PQF ---
[facility] Cripple Worker Crystal Reports [facility] YueGAUDENCIO RIGGS[facility] [id number] [facility] [id number] CLINICAL DOCUMENTATION CLARIFICATION FORM: POST DISCHARGE Addendum to original discharge summary date: ____ Late entry note date: __ Please exercise your independent, professional judgment in responding to the clarification form. Clinical indicators are provided on the bottom of this form for your review. PLEASE CLARIFY IF THE PATIENT HAD CHF, CONFLICTING DOCUMENTATION IN THE RECORD. CONSULTATION 12/14- ACUTE CONGESTIVE HEART FAILURE EXACERBATION WITH ELEVATED BNP. CONSULTATION 12/14 - DIASTOLIC DYSFUNCTION NOT LISTED IN DISCHARGE SUMMARY Please check appropriate box(s): HEART FAILURE: A. TYPE: [ ] Systolic / HFrEF [ ] Diastolic / HFpEF [ ] Combined Systolic / Diastolic B. ACUITY [ ] Acute [ ] Acute on Chronic [ ] Chronic [ ] Other diagnosis [ ] Unable to determine [ ] Congestive heart failure ruled out In addition, please specify: Present on Admission (POA): [ ] Yes [ ] No [ ] Unable to determine For continuity of documentation, please document condition throughout progress notes and discharge summary. Thank You. CLINICAL INDICATORS - SIGNS / SYMPTOMS / LABS Ejection Fraction = % Dyspnea, Hypoxia Peripheral edema Elevated BNP JVD Orthopnea / SOB / dyspnea Pleural effusion / pulmonary edema CXR results Arrhythmia--tachycardia RISKS: Hypertension EMERGENCY Acute resp. failure with hypercapnia with hypoxia Copd w exac. TREATMENTS: Administration of AMADEO / ARB / BB Cardiac monitoring / telemetry IV diuretics MECH. VENT (This form is maintained as a part of the permanent medical record) 2014 [employer]. All Rights Reserved Svetlana [phone] MTDLacey
--- NOTE | 2017-12-19 12:48 | EKG ---
Test Reason : Blood Pressure : / mmHG Vent. Rate : 152 BPM Atrial Rate : 152 BPM P-R Int : 144 ms QRS Dur : 080 ms QT Int : 334 ms P-R-T Axes : 077 084 250 degrees QTc Int : 531 ms Sinus tachycardia Abnormal ECG Confirmed by STEFFANIE LOPEZ ([id number]), clinical editor NANETTE LANDA ([id number]) on 12/19/2017 12:47:44 PM Referred By: Confirmed By:STEFFANIE LOPEZ
== END 2017-12-17 17:48 | disposition home or self-care (01) | DRG 208 ==
LOC: ERS 21:14 → CCU 23:12 → MERGE 23:12 → EDBD 23:12 → T4-A 12-16 14:35
PROVIDERS: ADMIT Hospitalist; ATTEND Hospitalist
PROC: 5A1935Z Respiratory Ventilation, Less than 24 Consecutive Hours (ICD-10-PCS; 2017-12-13)
PROC: 0BH17EZ Insertion of Endotracheal Airway into Trachea, Via Natural or Artificial Opening (ICD-10-PCS; 2017-12-13)
PROC: 4A023N7 Measurement of Cardiac Sampling and Pressure, Left Heart, Percutaneous Approach (ICD-10-PCS; principal; 2017-12-15)
PROC: B2111ZZ Fluoroscopy of Multiple Coronary Arteries using Low Osmolar Contrast (ICD-10-PCS; 2017-12-15)
PROC: B2151ZZ Fluoroscopy of Left Heart using Low Osmolar Contrast (ICD-10-PCS; 2017-12-15)
PROC: 0D758ZZ Dilation of Esophagus, Via Natural or Artificial Opening Endoscopic (ICD-10-PCS; 2017-12-17)
DX: J96.02 Acute respiratory failure with hypercapnia (principal); I16.1 Hypertensive emergency; N17.9 Acute kidney failure, unspecified; E87.2 Acidosis; J44.1 Chronic obstructive pulmonary disease with (acute) exacerbation; I24.8 Other forms of acute ischemic heart disease; J81.1 Chronic pulmonary edema; J96.01 Acute respiratory failure with hypoxia; I11.9 Hypertensive heart disease without heart failure; F14.129 Cocaine abuse with intoxication, unspecified; R13.10 Dysphagia, unspecified; E78.5 Hyperlipidemia, unspecified; K21.9 Gastro-esophageal reflux disease without esophagitis; F17.210 Nicotine dependence, cigarettes, uncomplicated; K22.2 Esophageal obstruction; K44.9 Diaphragmatic hernia without obstruction or gangrene; R07.89 Other chest pain
CPT/HCPCS: 31500; 36415; 36416; 36556; 36620; 43752; 51702; 70450; 71045; 71270; 80048; 80053; 80306; 80307; 81003; 81015; 82550; 82553; 82805; 83605; 83690; 83880; 84443; 84484; 85025; 85610; 85730; 86850; 86900; 86901; 87040; 87086; 93005; 93010; 93306; 93458; 93567; 94002; 94003; 94640; 94760; 96365; 96366; 96375; A4216; C1769; J0696; J1642; J1644; J1650; J1940; J2001; J2270; J2405; J2704; J2765; J2920; J2930; J3010; J3475; J7050; J7620

== ENCOUNTER 2018-01-01 15:47 | Inpatient (IN) | payer OTHER ==
[2018-01-01] MEDS ORDERED: Albuterol Sulfate 2.5 mg/3 ml Neb ONE (15:52)
[2018-01-01 16:12] LABS: Actual Bicarbonate (HCO3a) 21.4 mEq/L (22-28); Base Excess (BEa) -4.8 mEq/L (-2.0 to +3.0); CO2 Tension 43.9 mmHg (35.0-45.0); O2 Tension (PaO2) 62.7 mmHg (> 80.0); pH, Arterial 7.31 (7.35-7.45)
[2018-01-01 16:13] LABS: #Basophils 0.1 thou/uL (0.0-0.2); #Eosinphils 0.1 thou/uL (0.0-0.7); #Lymphocytes 4.6 thou/uL (1.20-3.40); #Monocytes 0.8 thou/uL (0.11-0.59); #Neutrophils 10.3 thou/uL (1.40-6.50); %Basophils 0.8 % (0.0-1.0); %Eosinophils 0.5 % (0.0-10.0); %Lymphocytes 29.2 % (21.0-51.0); %Monocytes 4.9 % (0.0-10.0); %Neutrophils 64.6 % (42.0-75.0); Hemoglobin 13.9 g/dL (12.0-16.0); Mean Corpuscular HGB CONC 33.4 g/dL (32.0-36.0); Mean Corpuscular Hemoglobin 28.6 pg (27.0-31.0); Mean Corpuscular Volume 85.6 fL (78.0-98.0); Mean Platelet Volume 7.9 fL (7.4-10.4); Platelet Count 295 thou/uL (130-400); RBC Distribution Width 15.1 % (11.5-14.5); Red Blood Cell (RBC) Count 4.87 mill/uL (4.20-5.40); White Blood Cell (WBC) Count 15.9 thou/uL (4.8-10.8)
[2018-01-01 16:13] LABS: Calcium, Ionized 1.2 mmol/L (1.12-1.30); Hemoglobin (Hb) 13.4 g/dL (12.0-16.0)
[2018-01-01 16:14] LABS: ALV-art Gradient 201.475 (0-20); Analyzer IN Cardio ER; Puncture Site LBA
[2018-01-01 16:19] LABS: INR-International Normal Ratio 0.9; Prothrombin Time 11.8 SEC (12.0-14.7)
[2018-01-01 16:32] LABS: Acetaminophen Less than 6.0 mcg/mL (10.0-30.0); Alcohol Less than 10 mg/dL (Less than 10); Salicylate Less than 8.0 mg/dL (15.0-30.0)
[2018-01-01 16:33] LABS: ALT (SGPT) 19 U/L (8-55); AST (SGOT) 29 U/L (5-34); Albumin 4.3 g/dL (3.4-4.8); Alkaline Phosphatase 101 U/L (40-150); Anion Gap 15 mmol/L (10-20); BUN (Urea Nitrogen) 21 mg/dL (9.8-20.1); Bilirubin, Total 0.2 mg/dL (0.2-1.2); Calc. Creatinine Clearance 0 mL/min (70-130); Calcium 9.2 mg/dL (7.8-10.44); Carbon Dioxide 20 mmol/L (23-31); Chloride 107 mmol/L (98-107); Estimated GFR-MDRD 44; Globulin 3.5 g/dL (2.4-3.5); Glucose 216 mg/dL (80-115); Lipase 28 U/L (8-78); Magnesium 2.3 mg/dL (1.6-2.6); Potassium 3.9 mmol/L (3.5-5.1); Protein, Total 7.8 g/dL (6.0-8.3); Sodium 138 mmol/L (136-145)
--- NOTE | 2018-01-01 16:33 | RAD ---
PORTABLE CHEST ONE VIEW: Date: 01-01-18 Time: 3:05 p.m. History: Pulmonary edema. FINDINGS/IMPRESSION: Comparison made with exam of 12-16-17. The heart size is normal. The lungs are expanded with pulmonary vascular. No lobar consolidation or p neumothorax or large effusions are seen. The right internal jugular central venous line noted on the previous study has been removed in the interim. POS: [facility]
[2018-01-01 16:39] LABS: Bilirubin Negative (Negative); Blood, Urine Negative (Negative); Clarity CLEAR (Clear); Glucose, Urine (Dipstick) Negative (Negative); Leukocyte Negative (Negative); Nitrite Negative (Negative); Protein, Urine (Dipstick) 100 mg/dL (Neg-Trace); Specific Gravity, Urine 1.022 (1.002-1.036); Urobilinogen 0.2 mg/dL (0.2-1.0); pH, Urine 6.5 (5.0-9.0)
[2018-01-01 16:44] LABS: CKMB 12.7 ng/mL (0-6.6)
[2018-01-01] MEDS ORDERED: Lorazepam 2 MG/ML VIAL ONE (16:46)
[2018-01-01 16:49] LABS: Bacteria/HPF None Seen HPF (None Seen); Pathc Cast-AUWi Flag 1.01 (0-2.49); RBC/HPF 0-3 HPF (0-3); WBC/HPF 0-3 HPF (0-3)
[2018-01-01 16:52] LABS: Amphetamine Not Detected (NotDetected); Barbiturates Screen Not Detected (NotDetected); Benzodiazepine Screen Not Detected (NotDetected); Cocaine Metabolite Screen Detected (NotDetected); Medtox Control Line Valid? VALID (VALID); Medtox Reader # READER 4; Methadone Not Detected (NotDetected); Methamphetamine Not Detected (NotDetected); Opiate Screen Not Detected (NotDetected); Oxycodone Screen Not Detected (NotDetected); Phencyclidine (PCP) Not Detected (NotDetected); THC/Cannabinoid Screen Not Detected (NotDetected); Tricyclic Screen Not Detected (NotDetected)
[2018-01-01 17:00] LABS: Hyaline Casts/LPF 4-6 HYALINE CAST LPF (0-3 Hyaline); Renal Epithelial None Seen HPF (0-3); Transitional Epithelial NONE SEEN HPF (0-3)
[2018-01-01] MEDS ORDERED: Nitroglycerin 2% Ointment 1 INCH/1 GM Packet ONE ×2 (17:09→18:34)
[2018-01-01] MEDS ORDERED: Morphine 4 MG/ML VIAL ONE (17:56)
[2018-01-01] MEDS ORDERED: Ketorolac Tromethamine 30 MG/ML VIAL ONE (17:57)
[2018-01-01] MEDS ORDERED: Furosemide 40 MG/4 ML VIAL ONE (17:57)
[2018-01-01 19:48] LABS: Troponin I 0.055 ng/mL (< 0.028)
[2018-01-01] MEDS ORDERED: Nitroglycerin 50 MG/250 ML BOT 250 ML IVPB SCH (19:58)
[2018-01-01] MEDS ORDERED: Mag-Al 1200 mg/1200 mg/30 ML UDCUP PO PRN (19:58)
[2018-01-01] MEDS ORDERED: hydrALAZINE 20 MG/ML VIAL SLOW IVP PRN (19:58)
[2018-01-01] MEDS ORDERED: cloNIDine 0.1 MG TAB PO PRN (19:58)
[2018-01-01 21:08] VITALS: BMI 25.7
--- NOTE | 2018-01-01 21:46 | HP ---
This is a city call. CHIEF COMPLAINT: Trouble breathing. HISTORY OF PRESENT ILLNESS: Ms. Holloway is a pleasant 62-year-old female, who has a history of hypert ension and COPD. She also has a history of crack cocaine abuse. She was actually recently admitted to our facility for hypertensive urgency secondary to crack cocaine abuse where she had flash pulmona ry edema and was intubated. She was treated and released. She says she was doing fine since she lef t the hospital until earlier today. She says that she was visiting with her niece who had some crack cocaine and she says she used only a little piece of it and shortly after that she began having trou ble breathing. She got concerned and her called 911 and she was brought to the hospital. Th ere in the ER, she was found to be hypertensive with a blood pressure in the 200 systolic. She was f ound to be in flash pulmonary edema and she is being admitted for further evaluation and treatment. Currently, the patient is on BiPAP and on a nitroglycerin drip. She says that she is beginning to fe el better. She denies being feeling short of breath. She denies any chest pain and denies any abdom inal pain, etc. However, it is difficult to get any additional history as the patient again is curre ntly on BiPAP. REVIEW OF SYSTEMS: All systems were reviewed and are negative except for that mentioned in the histo ry of present illness. PAST MEDICAL HISTORY: Significant for hypertension, cocaine abuse, COPD, hyperlipidemia, gastroesoph ageal reflux disease. PAST SURGICAL HISTORY: She has had a x1, back surgery, colonoscopy and polypectomy. ALLERGIES: No known drug allergies. SOCIAL HISTORY: She is a social drinker. She also is a tobacco user and she admits to crack cocaine abuse. She is and lives at home with family. FAMILY HISTORY: Significant for aortic aneurysm, prostate cancer in her father and coronary artery d isease in her brother. MEDICATIONS: These were taken from the emergency room records and include lisinopril 5 mg once a day , aspirin 81 mg daily, tramadol 50 mg every 8 hours, simvastatin 20 mg daily. ipratropium nebs 3 time s a day, Spiriva HandiHaler 18 mcg inhaled daily, Ventolin inhaler 2 puffs 3 times a day, gabapentin 600 mg daily, Advair Diskus 100/50 mcg inhaled daily. PHYSICAL EXAMINATION: GENERAL: She is alert and oriented. She appears to be in no acute distress. She is well-developed and well-nourished. VITAL SIGNS: Her blood pressure was 214/82, currently it is 160/70; respiratory rate is in the 20s; heart rate is in the 90s. She is afebrile. HEENT: Her pupils are equal, round, and reactive. Extraocular muscles are intact. Her sclerae are anicteric. Throat, no erythema, no exudates. NECK: No adenopathy, no bruits. LUNGS: Clear to auscultation. There is no wheezing or rales. CARDIOVASCULAR: She has a normal S1, S2. No S3 or S4. Heart rate is tachycardic. There are no mur murs, clicks, no rubs. ABDOMEN: Soft, it is nontender, nondistended. Positive for bowel sounds. There is no rebound or gu arding. EXTREMITIES: There is no clubbing, cyanosis, no edema. NEUROLOGIC: The exam is nonfocal. LABORATORY DATA AND IMAGING: Sodium is 138, potassium 3.9, chloride is 107, CO2 is 20, BUN of 21, cr eatinine 1.47, glucose is 216. The white blood cell count 15.9, hemoglobin 13.9, hematocrit is 41.7, platelet count is 295. INR 0.9. Urine drug screen was positive for cocaine. EKG was positive for sinus tachycardia, voltage criteria for LVH. ASSESSMENT AND PLAN: This is a pleasant 62-year-old female, who is being admitted for hypertensive u rgency with flash pulmonary edema secondary to cocaine abuse. She will be admitted currently to the ICU since she is on a nitroglycerin drip. She is also on BiPAP. We will try to wean her off of the BiPAP, so that we can give her something oral for her blood pressure. Place her on p.r.n. medication s. We will need to avoid beta blockers given her history of cocaine abuse. We will continue to tren d cardiac enzymes. A Critical Care consult will be obtained due to the fact that she is in the ICU/I MCU. Once she is able to tolerate oral, restart her on her oral hypertensive medications. She will be placed on deep venous thrombosis prophylaxis.
[2018-01-01] MEDS: Nitroglycerin 2% Ointment 1 INCH/1 GM Packet TOP SCH (22:01)
[2018-01-01 22:38] LABS: Troponin I 0.045 ng/mL (< 0.028)
[2018-01-02] MEDS ORDERED: Acetaminophen 325 MG TAB PO PRN (03:46)
[2018-01-02] MEDS ORDERED: traMADol HCl 50 MG TAB PO PRN ×2 (03:46→09:35)
[2018-01-02 05:18] LABS: #Lymphocytes 0.8 thou/uL (1.20-3.40); #Monocytes 0.4 thou/uL (0.11-0.59); #Neutrophils 11.6 thou/uL (1.40-6.50); %Basophils 0.1 % (0.0-1.0); %Eosinophils 0.1 % (0.0-10.0); %Lymphocytes 6.3 % (21.0-51.0); %Monocytes 3.3 % (0.0-10.0); %Neutrophils 90.2 % (42.0-75.0); Hemoglobin 11.4 g/dL (12.0-16.0); Mean Corpuscular HGB CONC 33.3 g/dL (32.0-36.0); Mean Corpuscular Hemoglobin 28.4 pg (27.0-31.0); Mean Corpuscular Volume 85.3 fL (78.0-98.0); Mean Platelet Volume 7.8 fL (7.4-10.4); Platelet Count 247 thou/uL (130-400); RBC Distribution Width 14.9 % (11.5-14.5); White Blood Cell (WBC) Count 12.9 thou/uL (4.8-10.8)
[2018-01-02 05:36] LABS: Anion Gap 14 mmol/L (10-20); BUN (Urea Nitrogen) 25 mg/dL (9.8-20.1); Calc. Creatinine Clearance 52 mL/min (70-130); Calcium 9.2 mg/dL (7.8-10.44); Carbon Dioxide 23 mmol/L (23-31); Chloride 107 mmol/L (98-107); Estimated GFR-MDRD 62; Glucose 134 mg/dL (80-115); Potassium 4.1 mmol/L (3.5-5.1); Sodium 140 mmol/L (136-145)
[2018-01-02] MEDS: Nitroglycerin 2% Ointment 1 INCH/1 GM Packet TOP SCH (05:56)
[2018-01-02] MEDS ORDERED: Enoxaparin Sodium 40 MG/0.4 ML SYRINGE SC SCH (09:00)
[2018-01-02] MEDS ORDERED: Amlodipine 5 MG TAB PO SCH ×3 (09:36→21:00)
[2018-01-02] MEDS ORDERED: Carvedilol 3.125 MG TAB PO SCH ×3 (09:36→17:00)
--- NOTE | 2018-01-02 09:46 | PDOC.PN ---
- Subjective Encounter Start Date: 01/02/18 Encounter Start Time: 09:44 Ms. Holloway was seen today in follow-up of hypertensive urgency following cocaine use. She feels much better. She is off BiPAP, and the Nitro-drip. She does not complain of chest pain or dyspnea. - Objective Resuscitation Status: Resuscitation Status FULL:Full Resuscitation MAR Reviewed: Yes Vital Signs & Weight: Vital Signs (12 hours) Temp Pulse Resp BP Pulse Ox 01/02/18 07:48 99 01/02/18 07:25 97.8 F 87 18 99 01/02/18 07:21 97.8 F 87 18 159/54 H 99 01/02/18 05:59 98.4 F 85 18 136/48 L 98 01/02/18 04:22 98.2 F 82 20 143/52 H 97 01/01/18 23:40 97.4 F L 89 20 129/51 L 95 Weight Weight 132 lb 1.6 oz I&O: 01/01/18 01/02/18 01/03/18 06:59 06:59 06:59 Intake Total 200 Output Total 400 Balance -200 Result Diagrams: 01/02/18 05:04 01/02/18 05:04 Phys Exam - Physical Examination HEENT: PERRLA Respiratory: no wheezing, no rales, no rhonchi, clear to auscultation bilateral Cardiovascular: RRR, no significant murmur, no rub Gastrointestinal: soft, non-tender, positive bowel sounds Musculoskeletal: no edema Dx/Plan (1) HTN (hypertension) Code(s): I10 - ESSENTIAL (PRIMARY) HYPERTENSION Status: Acute (2) COPD (chronic obstructive pulmonary disease) Status: Chronic Qualifiers: COPD type: COPD with acute exacerbation Qualified Code(s): J44.1 - Chronic obstructive pulmonary disease with (acute) exacerbation (3) Cocaine abuse Code(s): F14.10 - COCAINE ABUSE, UNCOMPLICATED Status: Chronic (4) Hypertensive urgency Code(s): I16.0 - HYPERTENSIVE URGENCY Status: Resolved (5) Pulmonary edema Code(s): J81.1 - CHRONIC PULMONARY EDEMA Status: Resolved - Plan * Hypertensive Urgency- she is off the nitro-drip, and Bipap, and her blood pressure is much better * Will give her morning medications * COPD- stable * wean her off oxygen, and hopefully home soon * She says she plans to go to [facility] for outpatient substance abuse counseling.
[2018-01-02 10:35] VITALS: BP 136/54
[2018-01-02 11:21] VITALS: TEMP 97.4
[2018-01-02] MEDS ORDERED: Ipratropium Bromide 2.5 ml Neb NEB SCH ×2 (13:00→15:00)
[2018-01-02] MEDS ORDERED: hydrALAZINE 25 MG TAB PO SCH (15:00)
[2018-01-02] MEDS ORDERED: Benzonatate 100 MG CAP PO SCH (15:00)
[2018-01-02] MEDS ORDERED: Mometasone/Formoterol 120 PUFF INHALER INH SCH (18:30)
[2018-01-02] MEDS ORDERED: Non-Formulary Item 1 EACH (Fluticasone/Salmeterol [Advair Diskus 100/50] 1 PUFF) INH SCH (21:00)
[2018-01-02] MEDS ORDERED: Gabapentin 300 MG CAP PO SCH (21:00)
[2018-01-02] MEDS ORDERED: Spiriva 18 MCG CAP (Box of 5 Caps) INH SCH (21:00)
--- NOTE | 2018-01-02 22:09 | DIS ---
DATE OF ADMISSION: 01/01/2018 DATE OF DISCHARGE: 01/02/2018 PRIMARY CARE PHYSICIAN: [facility]. DISCHARGE DISPOSITION: Home. PRIMARY DISCHARGE DIAGNOSES: 1. Hypertensive urgency secondary to cocaine intoxication. 2. Cocaine abuse. 3. Chronic obstructive pulmonary disease. 4. Hyperlipidemia. 5. Gastroesophageal reflux disease. DISCHARGE MEDICATIONS: Include Apresoline 25 mg t.i.d., Lasix 40 mg daily, carvedilol 3.125 mg twice a day, Tessalon Perles 100 mg t.i.d. as needed, aspirin 325 mg daily, amlodipine 5 mg twice a day, t ramadol 50 mg q.i.d., Spiriva HandiHaler 18 mcg inhaled twice daily, simvastatin 20 mg daily, Zantac 150 mg twice a day, Lisinopril 5 mg daily, ipratropium inhaled solution 3 times a day, gabapentin 600 mg at bedtime, Advair Diskus twice a day and albuterol nebs as needed. CODE STATUS: FULL CODE. ALLERGIES: No known drug allergies. HOSPITAL COURSE: Ms. Holloway is a pleasant 62-year-old female that has a history of hypertension. Hui lopez also has a history of substance abuse, primarily cocaine abuse. She had actually recently been dis charged from our facility on 12/17/2017 for a hypertensive crisis with flash pulmonary edema due to c ocaine abuse. She presented once again with a very similar presentation. She says that she used isela e crack cocaine and shortly afterwards became short of breath. She came to the emergency room where she was evaluated and found to have a blood pressure in the 200s systolic. She also had developed fl janet pulmonary edema. She was placed on BiPAP as well as a nitroglycerin drip. Her blood pressure wa s controlled and she was diuresed and was able to be transitioned off of the IV nitroglycerin drip as well as the BiPAP. The following day, her regular medications were started and her blood pressure r emained stable and she was able to be discharged home. The patient says that she does plan to seek c floreseling at the [facility] and knows the consequences of continued drug abuse. She already has her usua l medications at home. She says that she got them filled on her last admission and she is to continu e her usual home medications.
[2018-01-03] MEDS ORDERED: Atorvastatin Calcium 10 MG TAB PO SCH (09:00)
[2018-01-03] MEDS ORDERED: Aspirin 325 MG TAB PO SCH (09:00)
[2018-01-03] MEDS ORDERED: Lisinopril 5 MG TAB PO SCH (09:00)
== END 2018-01-02 13:55 | disposition home or self-care (01) | DRG 305 ==
LOC: ERS 15:47 → IMCU/EMU 19:49
PROVIDERS: ADMIT Internal Medicine; ATTEND Internal Medicine
DX: I16.0 Hypertensive urgency (principal); J81.1 Chronic pulmonary edema; F14.129 Cocaine abuse with intoxication, unspecified; J44.9 Chronic obstructive pulmonary disease, unspecified; E78.5 Hyperlipidemia, unspecified; K21.9 Gastro-esophageal reflux disease without esophagitis; I10 Essential (primary) hypertension
CPT/HCPCS: 36415; 51702; 71045; 80048; 80053; 80306; 80307; 81003; 81015; 82553; 82805; 83690; 83735; 83880; 84484; 85025; 85610; 93005; 94640; 94660; 94760; 96365; 96366; 96375; 96376; 99292; A4216; J1650; J1885; J1940; J2060; J2270; J7611; J7644

== ENCOUNTER 2018-01-04 17:16 | Inpatient (IN) | payer OTHER ==
[2018-01-04] MEDS ORDERED: Fentanyl 100 MCG/2 ML VIAL ONE (17:18)
[2018-01-04] MEDS ORDERED: Sodium Chloride For Inhalation 0.9% 3 ML NEB ONE (17:35)
[2018-01-04 17:38] LABS: #Basophils 0.2 thou/uL (0.0-0.2); #Eosinphils 0.1 thou/uL (0.0-0.7); #Lymphocytes 5.2 thou/uL (1.20-3.40); #Neutrophils 10.1 thou/uL (1.40-6.50); %Basophils 1.1 % (0.0-1.0); %Eosinophils 0.5 % (0.0-10.0); %Lymphocytes 31.3 % (21.0-51.0); %Monocytes 5.9 % (0.0-10.0); %Neutrophils 61.3 % (42.0-75.0); Hemoglobin 12.3 g/dL (12.0-16.0); Mean Corpuscular HGB CONC 33.1 g/dL (32.0-36.0); Mean Corpuscular Hemoglobin 28.7 pg (27.0-31.0); Mean Corpuscular Volume 86.8 fL (78.0-98.0); Mean Platelet Volume 8.9 fL (7.4-10.4); Platelet Count 252 thou/uL (130-400); Red Blood Cell (RBC) Count 4.27 mill/uL (4.20-5.40); White Blood Cell (WBC) Count 16.5 thou/uL (4.8-10.8)
[2018-01-04] MEDS ORDERED: fentaNYL Citrate/PF 2,000 MCG in Sodium Chloride 0.9% 60 ML IV SCH ×2 (17:39→21:07)
[2018-01-04 17:45] LABS: Bilirubin Negative (Negative); Blood, Urine Small (Negative); Clarity CLOUDY (Clear); Glucose, Urine (Dipstick) 250 mg/dL (Negative); Leukocyte Negative (Negative); Nitrite Negative (Negative); Protein, Urine (Dipstick) 300 mg/dL (Neg-Trace); Specific Gravity, Urine 1.012 (1.002-1.036); Urobilinogen 0.2 mg/dL (0.2-1.0); pH, Urine 6.5 (5.0-9.0)
[2018-01-04 17:46] LABS: Pathc Cast-AUWi Flag 1.25 (0-2.49)
[2018-01-04 17:54] LABS: Amphetamine Not Detected (NotDetected); Barbiturates Screen Not Detected (NotDetected); Benzodiazepine Screen Not Detected (NotDetected); Cocaine Metabolite Screen Detected (NotDetected); Medtox Control Line Valid? VALID (VALID); Medtox Reader # READER 4; Methadone Not Detected (NotDetected); Methamphetamine Not Detected (NotDetected); Opiate Screen Not Detected (NotDetected); Oxycodone Screen Not Detected (NotDetected); Phencyclidine (PCP) Not Detected (NotDetected); THC/Cannabinoid Screen Not Detected (NotDetected); Tricyclic Screen Not Detected (NotDetected)
[2018-01-04 17:55] LABS: Acetaminophen Less than 6.0 mcg/mL (10.0-30.0); Alcohol Less than 10 mg/dL (Less than 10); Salicylate Less than 8.0 mg/dL (15.0-30.0)
[2018-01-04 18:04] LABS: Troponin I 0.039 ng/mL (< 0.028)
[2018-01-04 18:10] LABS: Bacteria/HPF Rare-Few HPF (None Seen); Hyaline Casts/LPF NONE SEEN LPF (0-3 Hyaline)
[2018-01-04 18:11] LABS: RBC/HPF 0-3 HPF (0-3)
[2018-01-04 18:15] LABS: CO2 Tension 49.7 mmHg (35.0-45.0); O2 Tension (PaO2) 96.6 mmHg (> 80.0); pH, Arterial 7.25 (7.35-7.45)
[2018-01-04 18:16] LABS: Actual Bicarbonate (HCO3a) 21.1 mEq/L (22-28); Base Excess (BEa) -6.1 mEq/L (-2.0 to +3.0); Hemoglobin (Hb) 10.5 g/dL (12.0-16.0)
[2018-01-04 18:17] LABS: ALV-art Gradient 269.075 (0-20); Analyzer IN Cardio ER; Calcium, Ionized 1.1 mmol/L (1.12-1.30)
[2018-01-04] MEDS ORDERED: Lorazepam 2 MG/ML VIAL ONE (18:32)
[2018-01-04 18:53] LABS: CKMB 8.9 ng/mL (0-6.6)
[2018-01-04 18:55] LABS: ALT (SGPT) 50 U/L (8-55); AST (SGOT) 56 U/L (5-34); Albumin 3.8 g/dL (3.4-4.8); Alkaline Phosphatase 111 U/L (40-150); Anion Gap 23 mmol/L (10-20); BUN (Urea Nitrogen) 17 mg/dL (9.8-20.1); Bilirubin, Total 0.2 mg/dL (0.2-1.2); CK (CPK) 256 U/L (29-168); Calc. Creatinine Clearance 0 mL/min (70-130); Calcium 9.1 mg/dL (7.8-10.44); Carbon Dioxide 16 mmol/L (23-31); Chloride 108 mmol/L (98-107); Estimated GFR-MDRD 54; Globulin 3.3 g/dL (2.4-3.5); Glucose 263 mg/dL (80-115); Lipase 49 U/L (8-78); Potassium 4.6 mmol/L (3.5-5.1); Protein, Total 7.1 g/dL (6.0-8.3); Sodium 142 mmol/L (136-145)
[2018-01-04] MEDS ORDERED: Norepinephrine 8 MG/0.9% NS 250 ML ONE (19:11)
[2018-01-04] MEDS ORDERED: Insulin Regular 100 units/100 ml in NS IVPB SCH (19:15)
--- NOTE | 2018-01-04 20:05 | RAD ---
RADIOGRAPH CHEST 1 VIEW: Date: 01/04/18 Time: 4:42 p.m. HISTORY: 62-year-old female status post intubation. Dr. Awad reported the position of the endotracheal tube in the left main stem bronchus to Cabrera blackburn of the Emergency Department at 6:01 p.m. on 01/04/18. She was instructed to notify Dr. Morales, who is currently attending to an emergent patient case at the time of this dictation. COMPARISON: 01/01/18. FINDINGS: There is a new finding of an endotracheal tube with distal tip in the left mainstem bronchus, approxi mately 1.5 cm distal to the joyce. An NG tube has been placed which reaches at least the level of th e diaphragm. The level inferior to diaphragm is not included. There is a defibrillation paddle partia lly covering the apex of the right lung. This is a supine image, which would be insensitive for pneum othorax detection. There is apparent new mild cardiomediastinal shift to the right. Interstitial alanna ings are diffusely prominent. No gross consolidation is visualized. No cardiomegaly. IMPRESSION: 1. Status post intubation with endotracheal tube in the left mainstem bronchus. 2. Nasogastric tube placement, distal tip of which is below the diaphragm, outside of the field of view. Code CR JN [] POS: [facility]
--- NOTE | 2018-01-04 20:46 | RAD ---
FRONTAL VIEW CHEST: 01/04/18 COMPARISON: Earlier same day. INDICATION: Line evaluation. FINDINGS: Endotracheal tubes approximates the proximal aspect of the left main stem bronchus. Enteric catheter traverses the left abdomen extending inferior to the field of view. There is a right internal jugular venous catheter with tip overlying the right atrial region. Bilateral interstitial and alveolar opac ities may relate to edema. No additional significant interval change. IMPRESSION: 1. Left main stem bronchus intubation is present, grossly stable. Recommend approximate 2.5 cm r etraction with followup imaging for confirmation. 2. Findings which likely relate to edema. Superimposed atypical bilateral pneumonia not excluded . Recommend continued imaging followup. 3. Interval placement of right IJ catheter without significant postprocedural pneumothorax evide nt. Telephone call placed to Toby Morales at time of interpretation, 1915 hours, 01/04/18. Code CR POS: [facility]
[2018-01-04] MEDS ORDERED: Fentanyl BOLUS 250 ML IVPB PRN (21:07)
[2018-01-04] MEDS ORDERED: DISCONTINUE PREVIOUS NARCOTIC PAIN MEDICATIONS AND BENZODIAZEPINES FS SCH (21:07)
[2018-01-04] MEDS ORDERED: Propofol BOLUS 1,000 MG/100 ML VIAL IV PRN (21:07)
[2018-01-04] MEDS ORDERED: Propofol 1,000 MG/100 ML VIAL IV PRN (21:07)
[2018-01-04] MEDS ORDERED: Norepinephrine 8 MG/250 ML BAG IVPB PRN (21:08)
[2018-01-04 21:20] VITALS: BMI 24.4
--- NOTE | 2018-01-04 21:33 | CT ---
CT OF HEAD NONCONTRAST: 01/04/18 CLINICAL HISTORY: Altered mental status. FINDINGS: There is mild prominence of the ventricular system, slightly out or proportion to size of the cerebra l sulci. There is no intracranial hemorrhage, mass effect, or midline shift. Scattered areas of paran lakeshia sinus opacification as well as opacification of the nasal passageways is seen. Multifocal hypoat tenuating foci of each cerebral hemisphere indicates gliosis, age indeterminate, although component o f which is stable to 12/14/17 exam. IMPRESSION: 1. Slight prominence of ventricular system, nonspecific. 2. Multifocal hypoattenuating foci of the cerebral hemispheres which likely relates to gliosis f rom ischemic disease. 3. No intracranial hemorrhage, mass effect or midline shift. 4. Scattered areas of paranasal sinus opacification and fluid of the nasal passageways. POS: [facility]
[2018-01-04] MEDS: Lorazepam 2 MG/ML VIAL SLOW IVP PRN (21:38)
[2018-01-04 21:45] LABS: Magnesium 2.8 mg/dL (1.6-2.6); Phosphorus 7.1 mg/dL (2.3-4.7)
[2018-01-04] MEDS ORDERED: Ondansetron HCl/PF 4 MG/2 ML Vial IVP PRN (21:45)
[2018-01-04] MEDS: Sodium Chloride 0.9% 1,000 ML IV SCH (22:00)
--- NOTE | 2018-01-04 22:49 | HP ---
PRIMARY CARE PHYSICIAN: [facility]. CHIEF COMPLAINT: Found down at home. HISTORY OF PRESENT ILLNESS: The history of present illness is very limited, as the patient is curren tly intubated and unable to give me a history. There is no family at the bedside. Ms. Holloway was cale st discharged from the hospital. In fact, I discharged her 3 days ago on 01/02/2018, after she had a n admission of hypertensive urgency secondary to cocaine abuse. At the time of discharge, the patien marlene was alert and oriented and blood pressure had been controlled and she had voiced to me that she was planning on discontinuing cocaine use and had plans to go to the [facility] for outpatient treatment. S he is admitted again this time after she was found down at home. It is unclear who called the EMS bu t somebody called EMS from her home and when the ambulance arrived, the patient was obtunded. Appare ntly CPS was started, she was in PEA and she had the return of spontaneous circulation. Apparently e nroute, she was bradycardic and hypotensive, she was started on Levophed in the field and she was int ubated and is currently being placed in the ICU for further treatment. The patient is obtunded, she is having some muscle twitching periodically. Otherwise, I am unable to get any other history. It a ppears as if she may have vomited and she has been having some diarrhea. REVIEW OF SYSTEMS: Unobtainable, patient is intubated. PAST MEDICAL HISTORY: Significant for hypertension, cocaine abuse, COPD, hyperlipidemia, gastroesoph ageal reflux disease. PAST SURGICAL HISTORY: She has had , back surgery, colonoscopy, and polypectomy. ALLERGIES: No known drug allergies. SOCIAL HISTORY: She drinks socially. She admits to tobacco use and crack cocaine abuse. She is mar ried and lives at home with family. FAMILY HISTORY: Significant for aortic aneurysm, prostate cancer in her father, coronary artery dise ase in her brother. HOME MEDICATIONS: The ones on discharge include Apresoline 25 mg t.i.d., Lasix 40 mg daily, carvedil ol 3.125 mg twice a day, Tessalon Perles 100 mg t.i.d. as needed, aspirin 325 mg daily, amlodipine 5 mg twice a day, tramadol 50 mg q.i.d., Spiriva HandiHaler 18 mcg inhaled twice a day, simvastatin 20 mg daily, Zantac 150 mg twice a day, lisinopril 5 mg daily, ipratropium 3 times a day, gabapentin 600 mg at bedtime, Advair Diskus twice a day, and albuterol nebs as needed. PHYSICAL EXAMINATION: GENERAL: She is unresponsive. Pupils are reactive. VITAL SIGNS: Blood pressure was 125/35, heart rate 84. NECK: There is no jugular venous distention. LUNGS: Clear to auscultation. No wheezing, no rales. CARDIOVASCULAR: Heart rate is normal and regular. No murmurs, clicks, or rubs. ABDOMEN: Obese. It is soft, positive for bowel sounds. EXTREMITIES: There is no edema. NEUROLOGIC: She was moving all extremities. She has some muscle twitching periodically. LABORATORY DATA: White blood cell count 15.5, hemoglobin 12.3, hematocrit is 37.1, platelet count is 252. Sodium 142, potassium 4.6, chloride is 108, CO2 is 16, BUN of 17, creatinine 1.23, glucose is 263. CK was elevated at 256. Troponin is 0.39. Urine drug screen was positive for cocaine. Urinal ysis was essentially negative. ASSESSMENT AND PLAN: This is a 62-year-old female that presents to the emergency room after being fo und down at home. She was in pulseless electrical activity and has undergone CPR. It is unknown how long she had CPR administered before she had return of her spontaneous circulation. We will continu e her on the ventilator. We will place her on Ativan p.r.n. for the jerking possible seizure activit y. She will be on the sedation protocol. We will place her on Zosyn for potential aspiration pneumo nolan. Pulmonology and Cardiology had been consulted for her post-cardiac arrest status. Her blood pr essure is actually controlled at this point and should she have some rebound hypertension, this can b e managed with a Cardene drip. We will avoid beta blockers given her cocaine use and her condition i s guarded in that once again we do not know how long she was down and how long CPR lasted, and she is at risk for some anoxic brain injury.
[2018-01-04] MEDS: Piperacillin/Tazobactam 3.375 GM in Sodium Chloride 0.9% 100 ML IVPB SCH (23:45)
[2018-01-05 05:20] LABS: #Lymphocytes 1.5 thou/uL (1.20-3.40); #Monocytes 1.1 thou/uL (0.11-0.59); #Neutrophils 14.3 thou/uL (1.40-6.50); %Eosinophils 0.3 % (0.0-10.0); %Lymphocytes 8.8 % (21.0-51.0); %Monocytes 6.5 % (0.0-10.0); %Neutrophils 84.4 % (42.0-75.0); Hemoglobin 9.9 g/dL (12.0-16.0); Mean Corpuscular HGB CONC 32.9 g/dL (32.0-36.0); Mean Corpuscular Hemoglobin 28.4 pg (27.0-31.0); Mean Corpuscular Volume 86.2 fL (78.0-98.0); Mean Platelet Volume 8.2 fL (7.4-10.4); Platelet Count 190 thou/uL (130-400); RBC Distribution Width 14.8 % (11.5-14.5); Red Blood Cell (RBC) Count 3.48 mill/uL (4.20-5.40); White Blood Cell (WBC) Count 16.9 thou/uL (4.8-10.8)
[2018-01-05 05:31] LABS: Anion Gap 11 mmol/L (10-20); BUN (Urea Nitrogen) 17 mg/dL (9.8-20.1); Calc. Creatinine Clearance 63 mL/min (70-130); Calcium 7.8 mg/dL (7.8-10.44); Carbon Dioxide 21 mmol/L (23-31); Chloride 115 mmol/L (98-107); Estimated GFR-MDRD 72; Glucose 114 mg/dL (80-115); Potassium 4.3 mmol/L (3.5-5.1); Sodium 143 mmol/L (136-145)
[2018-01-05] MEDS: Piperacillin/Tazobactam 3.375 GM in Sodium Chloride 0.9% 100 ML IVPB SCH ×3 (05:44→17:55)
[2018-01-05 08:09] LABS: Actual Bicarbonate (HCO3a) 17.3 mEq/L (22-28); Base Excess (BEa) -6.2 mEq/L (-2.0 to +3.0); CO2 Tension 27.6 mmHg (35.0-45.0); Hemoglobin (Hb) 9.8 g/dL (12.0-16.0); O2 Tension (PaO2) 134.3 mmHg (> 80.0); pH, Arterial 7.41 (7.35-7.45)
[2018-01-05 08:10] LABS: Calcium, Ionized 1.1 mmol/L (1.12-1.30); Puncture Site RRA
[2018-01-05] MEDS ORDERED: Acetaminophen 1,000 MG in Premix Bag 1 BAG IVPB PRN (08:19)
[2018-01-05] MEDS ORDERED: Acetaminophen 325 MG TAB PO PRN (08:20)
--- NOTE | 2018-01-05 08:22 | CON ---
DATE OF CONSULTATION: 01/05/2018 PRIMARY FPGA ENGINEER: Dr. Terrance Lora REASON FOR CONSULTATION: Cardiac arrest. HISTORY OF PRESENT ILLNESS: Ms. Holloway is an unfortunate 62-year-old woman with a history of cocaine abuse, who recently presented with out of hospital arrest. She recently underwent coronary angiogra phy by Dr. Terrance Lora in 11/2017. She was not found to have significant coronary disease. The history is obtained from the chart. She was found down. The duration unknown. She did have ret urn of spontaneous circulation. She was initially found to be in PEA. Upon my arrival, she is currently intubated. Myotonic clonic jerks are present. PAST MEDICAL HISTORY: Cocaine use, hypertension, COPD, hyperlipidemia, acid reflux, , back surgery, colonoscopy. ALLERGIES: None. SOCIAL HISTORY: Positive tobacco and crack cocaine use. She is currently . FAMILY HISTORY: Positive for CAD. REVIEW OF SYSTEMS: Unobtainable. PHYSICAL EXAMINATION: VITAL SIGNS: Blood pressure 88/34, pulse 97, respirations 20. PERTINENT DRIPS: Include norepinephrine. GENERAL: Patient is a currently intubated with no sedation. NEUROLOGIC: Myotonic jerks are present. She does not awaken to voice. HEENT: Sclerae without icterus. Mouth has moist mucous membranes with normal pallor. NECK: No JVD. Carotid upstroke brisk. No bruits bilaterally. LUNGS: Clear to auscultation with unlabored respirations. BACK: No scoliosis or kyphosis. CARDIAC: Regular rate and rhythm with normal S1 and S2. No S3 or S4 noted. No significant rubs, mur murs, thrills, or gallops noted throughout the precordium. PMI is not displaced. There is no parast ernal heave. ABDOMEN: Soft, nontender, nondistended. No peritoneal signs present. No hepatosplenomegaly. No abn ormal striae. EXTREMITIES: 2+ femoral and 2+ dorsalis pedis pulses. No cyanosis, clubbing, or edema. SKIN: No gross abnormalities. PERTINENT LABS: CK troponin negative. Hemoglobin 9.9. Peak MB of 8.9. EKG: Normal sinus rhythm with ST-T changes suggesting LVH. IMPRESSION: 1. Out of hospital arrest. 2. Cocaine use. RECOMMENDATIONS: Ms. Holloway's most recent angiogram did not suggest significant coronary disease. T his is likely related to cocaine use. At this point, I recommend continued supportive care. Continu e blood pressure and heart rate support. There is no family present to discuss the case. Pulmonary has also been consulted. Forty minutes of critical care was performed reviewing the patient's case and examining the patient.
[2018-01-05] MEDS: Famotidine/PF 20 mg/2ml Vial SLOW IVP SCH ×2 (08:26→22:15)
[2018-01-05] MEDS: Lorazepam 2 MG/ML VIAL SLOW IVP PRN ×2 (08:27→12:02)
[2018-01-05] MEDS: Enoxaparin Sodium 40 MG/0.4 ML SYRINGE SC SCH (08:27)
--- NOTE | 2018-01-05 11:47 | CON ---
DATE OF CONSULTATION: 01/05/2018 HISTORY: This is a 62-year-old female who sees Dr. Romero in our office presented to the ER unrespons rosette. She was found down at home. She was bradycardic and went into PEA. CPR was initiated which sh e required epinephrine. She was intubated. She has multiple medical admissions here. In fact, recently she was here in the hospital. She has longstanding history of chronic obstructive pulmonary disease and substance abuse. She is presently intubated on the vent, unresponsive. PAST MEDICAL HISTORY: Extensively and well outlined, COPD, drug abuse, hyperlipidemia, asthma, statu s post a PEA. PAST SURGICAL HISTORY: Include multiple from the previous records. Low back surgery, colonoscopy, p olypectomy, . SOCIAL HISTORY: Smokes. She admits to crack cocaine, tobacco. Alcohol, social drinker. MEDICATIONS: List of medicine includes tramadol, hydralazine 25, Spiriva, Zocor, lisinopril 5, gabap entin 600, Lasix 40, Advair, Coreg 3.125, aspirin, Norvasc 5, albuterol inhaler. ALLERGIES: Apparently unknown. REVIEW OF SYSTEMS: Unobtainable, she is intubated on the vent, unresponsive. PHYSICAL EXAMINATION: HEENT: Pupils are equal. VITAL SIGNS: Blood pressure 102/49, sats 98%, respiration rate 18, afebrile. CHEST: Chest reveals decreased breath sounds, no wheezing. CARDIAC: Normal S1, S2, no gallops. ABDOMEN: Soft, no masses. LABORATORY DATA: White count 16,000, H&H 9 and 30, platelet count 190. PO2 is 134, pCO2 27.44, rate of 16, 40%, 500 tidal volume. Electrolytes are normal. X-ray is clear. Toxicology was reviewed, cocaine from last night. She had cocaine on 01/01/2018, ab out 3 days ago. IMPRESSION: 1. Status post found down at home. 2. Probably anoxic injury. 3. Respiratory failure. 4. Substance abuse. 5. Respiratory failure. 6. Cardiac arrest. PLAN: At this stage, continue supportive care. Minimize sedation. Await input from Cardiology. Pulmonary-nuñez, continue neb treatments and empiric antibiotics. We will follow. Forty-five minutes critical care time.
[2018-01-05] MEDS: Sodium Chloride 0.9% 1,000 ML IV SCH (12:28)
[2018-01-05] MEDS ORDERED: levETIRAcetam In NaCl (Iso-Os) 1,000 MG in Premix Bag 1 BAG IVPB SCH (13:39)
[2018-01-05 15:12] LABS: Troponin I 0.045 ng/mL (< 0.028)
[2018-01-05 22:42] LABS: Troponin I 0.037 ng/mL (< 0.028)
[2018-01-06] MEDS: Piperacillin/Tazobactam 3.375 GM in Sodium Chloride 0.9% 100 ML IVPB SCH ×4 (00:25→17:54)
[2018-01-06] MEDS: Sodium Chloride 0.9% 1,000 ML IV SCH ×2 (05:52→17:56)
[2018-01-06 06:11] LABS: Troponin I 0.049 ng/mL (< 0.028)
[2018-01-06 07:19] LABS: CO2 Tension 42.7 mmHg (35.0-45.0); pH, Arterial 7.34 (7.35-7.45)
[2018-01-06 07:20] LABS: Actual Bicarbonate (HCO3a) 22.3 mEq/L (22-28); Base Excess (BEa) -3.4 mEq/L (-2.0 to +3.0); Hemoglobin (Hb) 9.5 g/dL (12.0-16.0)
[2018-01-06 07:21] LABS: ALV-art Gradient 125.825 (0-20); Calcium, Ionized 1.2 mmol/L (1.12-1.30); Puncture Site LRA
--- NOTE | 2018-01-06 08:22 | PRG ---
DATE OF SERVICE: 01/06/2018 This morning on the vent, intubated, unresponsive. PHYSICAL EXAMINATION: VITAL SIGNS: Blood pressure 190/80, pulse 120, respiratory rate 18. HEENT: Pupils are equal 2 mm. CHEST: Decreased breath sounds, no wheezing. CARDIAC: Normal S1, S2, no gallops. ABDOMEN: Soft. NEUROLOGIC: Unresponsive. LABORATORY: PO2 106, pCO2 40.34. Electrolytes are normal. IMPRESSION: 1. Status post PEA with anoxic injury. 2. End-stage chronic obstructive pulmonary disease. 3. Respiratory failure. PLAN: Await input from Neurology. Further recommendation thereafter. Continue vent support. Prognosis remains grave. One half critical care time.
[2018-01-06] MEDS: Enoxaparin Sodium 40 MG/0.4 ML SYRINGE SC SCH (08:58)
[2018-01-06] MEDS: Famotidine/PF 20 mg/2ml Vial SLOW IVP SCH ×2 (08:59→21:20)
[2018-01-06] MEDS ORDERED: Acetaminophen 650 MG in Premix Bag 1 BAG IVPB PRN (09:07)
--- NOTE | 2018-01-06 10:00 | PRG ---
DATE OF SERVICE: 01/06/2018 SUBJECTIVE: The patient's presumed living boyfriend and is at the bedside including patient' s brother. They both stated they want to make the patient a DNR. We have documented this conversati on with the nurse, so the patient will be made a DNR status post severe anoxic injury.
[2018-01-06 10:01] LABS: ALT (SGPT) 30 U/L (8-55); AST (SGOT) 71 U/L (5-34); Alkaline Phosphatase 56 U/L (40-150); Anion Gap 12 mmol/L (10-20); BUN (Urea Nitrogen) 11 mg/dL (9.8-20.1); Bilirubin, Total 0.5 mg/dL (0.2-1.2); Calc. Creatinine Clearance 72 mL/min (70-130); Calcium 8.5 mg/dL (7.8-10.44); Carbon Dioxide 23 mmol/L (23-31); Chloride 116 mmol/L (98-107); Estimated GFR-MDRD 83; Globulin 2.4 g/dL (2.4-3.5); Glucose 97 mg/dL (80-115); Potassium 3.7 mmol/L (3.5-5.1); Protein, Total 5.4 g/dL (6.0-8.3); Sodium 147 mmol/L (136-145)
[2018-01-06 10:14] LABS: Hemoglobin 9.3 g/dL (12.0-16.0); Mean Corpuscular HGB CONC 33.3 g/dL (32.0-36.0); Mean Corpuscular Hemoglobin 28.7 pg (27.0-31.0); Mean Corpuscular Volume 86.1 fL (78.0-98.0); Mean Platelet Volume 8.9 fL (7.4-10.4); Platelet Count 182 thou/uL (130-400); RBC Distribution Width 15.1 % (11.5-14.5); Red Blood Cell (RBC) Count 3.24 mill/uL (4.20-5.40); White Blood Cell (WBC) Count 16.2 thou/uL (4.8-10.8)
[2018-01-06 10:19] LABS: Band 14 % (5-11); Lymphocytes 14 % (21-51); MDiff Complete? YES; Monocytes 3 % (0-10); Neutrophil 69 % (42-75); PLT Morphology Comment Appears Adequate; Polychromasia SLIGHT = 2-3 cells (100X) (0-2/hpf)
--- NOTE | 2018-01-06 12:05 | EKG ---
Test Reason : ? Blood Pressure : / mmHG Vent. Rate : 098 BPM Atrial Rate : 098 BPM P-R Int : 110 ms QRS Dur : 082 ms QT Int : 350 ms P-R-T Axes : 073 079 229 degrees QTc Int : 446 ms Sinus rhythm with short AR Right atrial enlargement Abnormal ECG When compared with ECG of 04-JAN-2018 17:28, (Unconfirmed) ST no longer depressed in Anterior leads Confirmed by JORGITO GORDON ([id number]) on 01/06/2018 12:05:08 PM Referred By: SARANYA Confirmed By:JORGITO GORDON
--- NOTE | 2018-01-06 14:43 | EEG ---
Referring Physician: Pernell BEAVER EEG # [id number] TEST TYPE: ROUTINE PORTABLE INPATIENT REPORT: AN EEG USING THE INTERNATIONAL TEN-TWENTY SYSTEM OF ELECTRODE PLACEMENT WAS PERFORMED. The background activity consists of medium to high amplitude slowing in the form of both Theta and Delta frequencies. There are periodic sharp waves that are seen in a generalized pattern occurring sporadically in the midst of this. Episodes of cerebral suppression occur lasting anywhere from 3 to 5 seconds. Photic stimulation did not alter the pattern. IMPRESSION: THIS IS AN ABNORMAL STUDY FOR THE FINDINGS OF DIFFUSE SLOWING WITH PERIODIC SUPPRESSION AND PERIODIC SHARP WAVES SUGGESTIVE OF A DIFFUSE ANOXIC INJURY. CLINICAL CORRELATION IS INDICATED. Saddle And Harness Maker: BRIGID Sound Mixer: [email or web address] MARTINES
[2018-01-06] MEDS: Acetaminophen 1,000 MG in Premix Bag 1 BAG IVPB PRN (16:15)
--- NOTE | 2018-01-06 18:57 | PDOC.CTH ---
Cardiology Progress Note - Subjective No changes noted overnight - Objective Vital Signs Temp Pulse Resp BP 01/06/18 18:00 99.3 F 10 L 01/06/18 16:35 99.7 F H 01/06/18 16:00 101.8 F H 10 L 01/06/18 15:17 98 133/49 L 01/06/18 15:00 101.1 F H 01/06/18 14:00 100.4 F H 10 L 01/06/18 12:00 100.7 F H 10 L 01/06/18 11:00 101.0 F H 01/06/18 10:12 110 H 129/56 L 01/06/18 10:00 102.1 F H 31 H 01/06/18 08:00 102.6 F H 17 01/06/18 07:40 102.3 F H 110 H 22 H Admit Weight 142 lb 3.17 oz Weight 142 lb 3.17 oz 01/05/18 01/06/18 01/07/18 06:59 06:59 06:59 Intake Total 936 2474.6 532 Output Total 1370 1675 1190 Balance -434 799.6 -658 - Physical Examination General/Neuro: NAD Neck: carotid US brisk, no JVD present Lungs: CTA, unlabored respirations Heart: PMI normal, RRR Abdomen: no HSM Extremities: + femoral B - Labs Result Diagrams: 01/06/18 09:30 01/06/18 09:30 Troponin/CKMB CK-MB (CK-2) 8.9 ng/mL (0-6.6) H* 01/04/18 17:30 Troponin I 0.049 ng/mL (< 0.028) H 01/06/18 05:20 - Assessment/Plan Out of hospital arrest Anoxic brain injury Normal angio in 11/2017 Normal EF in 11/2017 No good CV options at this point. An tri performed last month without CAD. Cardiopulmonary arrest liekly reated to cocaine use. No further recommendations. Please re-consult if needed.
--- NOTE | 2018-01-06 22:43 | PDOC.PN ---
- Subjective Encounter Start Date: 01/05/18 Encounter Start Time: 12:00 -: non-verbal Seen and examined by me. Spoke with patient's nurse. Patient was febrile therefore started Tylenol. patient is intubated and sedated to RASS -1 - Objective Resuscitation Status: Resuscitation Status DNR:Do Not Resuscitate MAR Reviewed: Yes Vital Signs & Weight: Vital Signs (12 hours) Temp Pulse Resp BP 01/06/18 22:38 96 01/06/18 22:00 100.4 F H 10 L 01/06/18 21:00 100 F H 01/06/18 20:00 10 L 01/06/18 19:00 99.5 F 01/06/18 18:57 122 H 160/51 H 01/06/18 18:00 99.3 F 10 L 01/06/18 16:35 99.7 F H 01/06/18 16:00 101.8 F H 10 L 01/06/18 15:17 98 133/49 L 01/06/18 15:00 101.1 F H 01/06/18 14:00 100.4 F H 10 L 01/06/18 12:00 100.7 F H 10 L 01/06/18 11:00 101.0 F H Weight Admit Weight 142 lb 3.17 oz Weight 142 lb 3.17 oz Most Recent Monitor Data Heart Rate from ECG 108 NIBP 155/49 NIBP BP-Mean 71 Respiration from ECG 17 SpO2 100 I&O: 01/05/18 01/06/18 01/07/18 06:59 06:59 06:59 Intake Total 936 2474.6 642 Output Total 1370 1675 1360 Balance -434 799.6 -718 Result Diagrams: 01/06/18 09:30 01/06/18 09:30 Phys Exam - Physical Examination intubated HEENT: PERRLA intubated Respiratory: no wheezing, no rales, no rhonchi tachycardic Gastrointestinal: soft, no distention Musculoskeletal: no edema, pulses present intubated and sedated. Dx/Plan (1) Anoxic brain damage Status: Acute Comment: patient is sedated and intubated. EEG ordered. neurology consulted. Prognosis is poor. (2) Cardiac arrest with successful resuscitation Code(s): I46.9 - CARDIAC ARREST, CAUSE UNSPECIFIED Status: Acute Comment: ekg done. will follow up cardio's recs. (3) Seizure Code(s): R56.9 - UNSPECIFIED CONVULSIONS Status: Acute Comment: started keppra. will do ativan prn (4) Acute respiratory failure with hypoxia Code(s): J96.01 - ACUTE RESPIRATORY FAILURE WITH HYPOXIA Status: Acute Comment: intubated and sedated (5) Cocaine abuse Code(s): F14.10 - COCAINE ABUSE, UNCOMPLICATED Status: Acute Comment: supportive care (6) HTN (hypertension) Code(s): I10 - ESSENTIAL (PRIMARY) HYPERTENSION Status: Acute Comment: controlled at this time. (7) SIRS (systemic inflammatory response syndrome) Code(s): R65.10 - SIRS OF NON-INFECTIOUS ORIGIN W/O ACUTE ORGAN DYSFUNCTION Status: Acute (8) Tobacco abuse Code(s): Z72.0 - TOBACCO USE Status: Acute - Plan * . Review of Systems - Review of Systems Other: intubated and sedated - Medications/Allergies Allergies/Adverse Reactions: Allergies Allergy/AdvReac Type Severity Reaction Status Date / Time No Known Allergies Allergy Verified 01/04/18 21:16 Medications: Current Medications Acetaminophen (Tylenol) 650 mg PO Q6H PRN PRN Reason: Fever > 101 Enoxaparin Sodium (Lovenox) 40 mg SC 0900 HIRAL Last Admin: 01/06/18 08:58 Dose: 40 mg Famotidine (Pepcid) 20 mg SLOW IVP Q12HR [facility] Last Admin: 01/06/18 21:20 Dose: 20 mg Insulin Human Regular 100 (units/ Sodium Chloride) 101 mls @ 0 mls/hr IVPB INF HIRAL Fentanyl Citrate 2,000 mcg/ (Sodium Chloride) 100 mls @ 0 mls/hr IV INF HIRAL; Protocol Stop: 02/03/18 21:07 Fentanyl Citrate (Fentanyl Bolus) 250 mls @ 0 mls/hr IVPB PRN PRN PRN Reason: Breakthrough pain/agitation Stop: 02/03/18 21:07 Norepinephrine Bitartrate (Levophed) 250 mls @ 0 mls/hr IVPB INF PRN; Protocol PRN Reason: TITRATE TO KEEP MAP > 65 Last Admin: 01/05/18 12:13 Dose: 250 mls Sodium Chloride (Normal Saline 0.9%) 1,000 mls @ 75 mls/hr IV .[id number] [facility] Last Admin: 01/06/18 17:56 Dose: 1,000 mls Piperacillin Sod/Tazobactam (Sod 3.375 gm/ Sodium Chloride) 100 mls @ 200 mls/ hr IVPB Q6HR [facility] Last Admin: 01/06/18 17:54 Dose: 100 mls Levetiracetam 500 mg/ Device 100 mls @ 200 mls/hr IVPB BID [facility] Last Admin: 01/06/18 21:19 Dose: 100 mls Acetaminophen 1,000 mg/ Device 100 mls @ 400 mls/hr IVPB Q6H PRN PRN Reason: Fever>101 IF UNABLE TO TAKE PO Stop: 01/07/18 09:08 Last Admin: 01/06/18 16:15 Dose: 100 mls Lorazepam (Ativan) 2 mg SLOW IVP Q1H PRN PRN Reason: Breakthrough agitation Stop: 02/03/18 21:07 Last Admin: 01/05/18 12:02 Dose: 2 mg Lorazepam (Ativan) 2 mg SLOW IVP Q1H PRN PRN Reason: Anxiety/Agitation Last Admin: 01/05/18 08:27 Dose: 2 mg Morphine Sulfate (Morphine Sulfate) 2 mg SLOW IVP Q1H PRN PRN Reason: BREAKTHROUGH PAIN/AGITATION Stop: 02/03/18 21:07 Discontinue Previous Narcotic Pain Medications And Benzodiazepines 1 each FS .ONE [facility] Stop: 02/03/18 21:07 Ondansetron HCl (Zofran) 4 mg IVP Q6H PRN PRN Reason: Nausea/Vomiting Pneumococcal Polyvalent Vaccine (Pneumovax 23) 0.5 ml IM .ONCE ONE Stop: 01/07/18 09:01 Propofol (Diprivan) 1,000 mg IV INF PRN; Protocol PRN Reason: TO ACHIEVE GOAL RASS Stop: 02/03/18 21:07 Last Admin: 01/05/18 07:25 Dose: 1,000 mg Propofol (Diprivan Bolus) 20 mg IV Q5MIN PRN PRN Reason: BREAKTHROUGH AGITATION Stop: 02/03/18 21:07 Sodium Chloride (Flush - Normal Saline) 10 ml IVF Q12HR [facility] Last Admin: 01/06/18 21:20 Dose: 10 ml Sodium Chloride (Flush - Normal Saline) 10 ml IVF PRN PRN PRN Reason: Saline Flush
--- NOTE | 2018-01-06 22:49 | PDOC.PN ---
- Subjective Encounter Start Date: 01/06/18 Encounter Start Time: 12:15 intubated and sedated. spoke to nurse. No acute changes overnight. - Objective Resuscitation Status: Resuscitation Status DNR:Do Not Resuscitate MAR Reviewed: Yes Vital Signs & Weight: Vital Signs (12 hours) Temp Pulse Resp BP 01/06/18 22:38 96 01/06/18 22:00 100.4 F H 10 L 01/06/18 21:00 100 F H 01/06/18 20:00 10 L 01/06/18 19:00 99.5 F 01/06/18 18:57 122 H 160/51 H 01/06/18 18:00 99.3 F 10 L 01/06/18 16:35 99.7 F H 01/06/18 16:00 101.8 F H 10 L 01/06/18 15:17 98 133/49 L 01/06/18 15:00 101.1 F H 01/06/18 14:00 100.4 F H 10 L 01/06/18 12:00 100.7 F H 10 L 01/06/18 11:00 101.0 F H Weight Admit Weight 142 lb 3.17 oz Weight 142 lb 3.17 oz Most Recent Monitor Data Heart Rate from ECG 108 NIBP 155/49 NIBP BP-Mean 71 Respiration from ECG 17 SpO2 100 I&O: 01/05/18 01/06/18 01/07/18 06:59 06:59 06:59 Intake Total 936 2474.6 642 Output Total 1370 1675 1360 Balance -434 799.6 -718 Result Diagrams: 01/06/18 09:30 01/06/18 09:30 EKG Reviewed by me: Yes Phys Exam - Physical Examination sedated and intubated HEENT: PERRLA sedated and intubated Respiratory: no wheezing, no rales tachycardic Gastrointestinal: soft, no distention Musculoskeletal: pulses present Dx/Plan (1) Anoxic brain damage Status: Acute Comment: patient is sedated and intubated. EEG done showed patient has anoxic brain damage. Palliative care has been consulted. Patient has been made DNR/DNI. Prognosis is poor. Will encourage Hospice care discussion with patient's family. Will follow up with neuro's recs. (2) Seizure Code(s): R56.9 - UNSPECIFIED CONVULSIONS Status: Acute Comment: continue Keppra, and sedation. (3) Cardiac arrest with successful resuscitation Code(s): I46.9 - CARDIAC ARREST, CAUSE UNSPECIFIED Status: Acute Comment: Per cardio. Nothing to be done. will monitor (4) Acute respiratory failure with hypoxia Code(s): J96.01 - ACUTE RESPIRATORY FAILURE WITH HYPOXIA Status: Acute Comment: intubated and sedated (5) Cocaine abuse Code(s): F14.10 - COCAINE ABUSE, UNCOMPLICATED Status: Acute Comment: supportive care (6) HTN (hypertension) Code(s): I10 - ESSENTIAL (PRIMARY) HYPERTENSION Status: Acute Comment: controlled at this time. (7) SIRS (systemic inflammatory response syndrome) Code(s): R65.10 - SIRS OF NON-INFECTIOUS ORIGIN W/O ACUTE ORGAN DYSFUNCTION Status: Acute (8) GERD (gastroesophageal reflux disease) Code(s): K21.9 - GASTRO-ESOPHAGEAL REFLUX DISEASE WITHOUT ESOPHAGITIS Status: Chronic (9) HLD (hyperlipidemia) Code(s): E78.5 - HYPERLIPIDEMIA, UNSPECIFIED Status: Chronic Qualifiers: Hyperlipidemia type: unspecified Qualified Code(s): E78.5 - Hyperlipidemia , unspecified (10) Tobacco abuse Code(s): Z72.0 - TOBACCO USE Status: Chronic - Plan * . See above Review of Systems - Review of Systems Other: Intubated and sedated. - Medications/Allergies Allergies/Adverse Reactions: Allergies Allergy/AdvReac Type Severity Reaction Status Date / Time No Known Allergies Allergy Verified 01/04/18 21:16 Medications: Current Medications Acetaminophen (Tylenol) 650 mg PO Q6H PRN PRN Reason: Fever > 101 Enoxaparin Sodium (Lovenox) 40 mg SC 0900 HIRAL Last Admin: 01/06/18 08:58 Dose: 40 mg Famotidine (Pepcid) 20 mg SLOW IVP Q12HR [facility] Last Admin: 01/06/18 21:20 Dose: 20 mg Insulin Human Regular 100 (units/ Sodium Chloride) 101 mls @ 0 mls/hr IVPB INF [facility]IRAL Fentanyl Citrate 2,000 mcg/ (Sodium Chloride) 100 mls @ 0 mls/hr IV INF HIRAL; Protocol Stop: 02/03/18 21:07 Fentanyl Citrate (Fentanyl Bolus) 250 mls @ 0 mls/hr IVPB PRN PRN PRN Reason: Breakthrough pain/agitation Stop: 02/03/18 21:07 Norepinephrine Bitartrate (Levophed) 250 mls @ 0 mls/hr IVPB INF PRN; Protocol PRN Reason: TITRATE TO KEEP MAP > 65 Last Admin: 01/05/18 12:13 Dose: 250 mls Sodium Chloride (Normal Saline 0.9%) 1,000 mls @ 75 mls/hr IV .[id number] [facility] Last Admin: 01/06/18 17:56 Dose: 1,000 mls Piperacillin Sod/Tazobactam (Sod 3.375 gm/ Sodium Chloride) 100 mls @ 200 mls/ hr IVPB Q6HR [facility] Last Admin: 01/06/18 17:54 Dose: 100 mls Levetiracetam 500 mg/ Device 100 mls @ 200 mls/hr IVPB BID [facility] Last Admin: 01/06/18 21:19 Dose: 100 mls Acetaminophen 1,000 mg/ Device 100 mls @ 400 mls/hr IVPB Q6H PRN PRN Reason: Fever>101 IF UNABLE TO TAKE PO Stop: 01/07/18 09:08 Last Admin: 01/06/18 16:15 Dose: 100 mls Lorazepam (Ativan) 2 mg SLOW IVP Q1H PRN PRN Reason: Breakthrough agitation Stop: 02/03/18 21:07 Last Admin: 01/05/18 12:02 Dose: 2 mg Lorazepam (Ativan) 2 mg SLOW IVP Q1H PRN PRN Reason: Anxiety/Agitation Last Admin: 01/05/18 08:27 Dose: 2 mg Morphine Sulfate (Morphine Sulfate) 2 mg SLOW IVP Q1H PRN PRN Reason: BREAKTHROUGH PAIN/AGITATION Stop: 02/03/18 21:07 Discontinue Previous Narcotic Pain Medications And Benzodiazepines 1 each FS .ONE [facility] Stop: 02/03/18 21:07 Ondansetron HCl (Zofran) 4 mg IVP Q6H PRN PRN Reason: Nausea/Vomiting Pneumococcal Polyvalent Vaccine (Pneumovax 23) 0.5 ml IM .ONCE ONE Stop: 01/07/18 09:01 Propofol (Diprivan) 1,000 mg IV INF PRN; Protocol PRN Reason: TO ACHIEVE GOAL RASS Stop: 02/03/18 21:07 Last Admin: 01/05/18 07:25 Dose: 1,000 mg Propofol (Diprivan Bolus) 20 mg IV Q5MIN PRN PRN Reason: BREAKTHROUGH AGITATION Stop: 02/03/18 21:07 Sodium Chloride (Flush - Normal Saline) 10 ml IVF Q12HR [facility] Last Admin: 01/06/18 21:20 Dose: 10 ml Sodium Chloride (Flush - Normal Saline) 10 ml IVF PRN PRN PRN Reason: Saline Flush
--- NOTE | 2018-01-06 23:44 | CON ---
DATE OF CONSULTATION: 01/06/2018 REFERRING PROVIDER: Toby Pineda D.O. REASON FOR CONSULTATION: Decreased level of responsiveness. HISTORY OF PRESENT ILLNESS: Ms. Holloway is a 62-year-old -[place] female who has been consult ed for evaluation of decreased responsiveness. History is very limited and thus most of the history is obtained from the patient's medical chart and dictated H and P note. Apparently, she was recently discharged from [facility] after she was admitted with hypertensive urgency secondary to co gabrielle abuse. She was found down at home on the day of admission. On arrival of the EMS, the patient was obtunded. CPR was started. She was in [facility] at that time with a successful resuscitation. She w as noted to be bradycardic and hypotensive and was started on Levophed field. She required intubatio n. She was noted to have muscle twitching intermittently on her face. Since being admitted to the ospital, she has been unresponsive to any form of stimulation. I am being asked to further evaluate for possible anoxic brain injury. PAST MEDICAL HISTORY: Reviewed and are as dictated in H and P note done by Dr. Blu Granados. PAST SURGICAL HISTORY: Reviewed and are as dictated in H and P note done by Dr. Blu Granados. FAMILY HISTORY: Reviewed and are as dictated in H and P note done by Dr. Blu Granados. SOCIAL HISTORY: Reviewed and are as dictated in H and P note done by Dr. Blu Granados. CURRENT MEDICATIONS: Reviewed and are as dictated in H and P note done by Dr. Blu Granados. ALLERGIES: Reviewed and are as dictated in H and P note done by Dr. Blu Granados. REVIEW OF SYSTEMS: Unable to perform. PHYSICAL EXAMINATION: VITAL SIGNS: Blood pressure of 155/49, pulse of 100, temperature of 100, respirations of 11 on mecha nical ventilation. GENERAL: Intubated, nonsedated -[place] female. RESPIRATORY: Clear to auscultation bilaterally. CARDIOVASCULAR: Regular rate and rhythm. NEUROLOGIC: Mental status: The patient is intubated and nonsedated. She is nonresponsive to verbal or noxious stimuli. There is no response to supraorbital pressure on both sides. Cranial nerves: Pupils are 3 mm and reactive. She has a gaze deviation to right side. She has positive corneal refl exes bilaterally. She does breathe over the ventilator machine. She does have positive cough and ga g reflex. Motor exam showed flaccid bilateral upper and lower extremities. There is no response to nail bed pressure in both upper and lower extremities. LABORATORY DATA: Reviewed, which included CBC, CMP, urinalysis, urine drug screen, which is signific ant for WBC of 16.2, hemoglobin of 9.3, hematocrit of 27.9. Sodium of 147. Urinalysis showing eleva jaime protein and glucose with small blood. Urine drug screen was positive for cocaine. IMAGING STUDIES: CT head without contrast was reviewed, which showed no acute intracranial abnormali ty. EEG results were reviewed. EEG was dictated by Dr. Christopher Cantu, which had shown diffuse slowin g with periodic suppression and periodic sharp waves suggestive of diffuse anoxic brain injury. IMPRESSION: 1. Cardiopulmonary arrest. 2. Decreased level of responsiveness, likely anoxic brain injury. Ms. Holloway is a 62-year-old -[place] female who presented with after being found down. She h ad a cardiopulmonary arrest requiring resuscitation. She has been unresponsive to verbal or noxious stimuli for more than 48 hours. She is not on any sedation for more than 48 hours. Her EEG showed s uppression with periodic sharp waves suggestive of anoxic brain injury. I have discussed the finding s with patient's daughter who then asked us to call the patient's brother, Mr. Booth. I spoke with him over the phone and explained the findings. I would recommend repeating another EEG in the [facility] as well as obtaining MRI brain without contrast. At which point, family can make a decision with whether to withdraw care or continue current medical management. Thank you for consultation.
[2018-01-07] MEDS: Piperacillin/Tazobactam 3.375 GM in Sodium Chloride 0.9% 100 ML IVPB SCH ×2 (00:22→06:17)
[2018-01-07] MEDS: Acetaminophen 1,000 MG in Premix Bag 1 BAG IVPB PRN ×2 (00:23→06:17)
[2018-01-07] MEDS: Sodium Chloride 0.9% 1,000 ML IV SCH (02:00)
[2018-01-07 04:28] LABS: Hemoglobin 9.8 g/dL (12.0-16.0); Mean Corpuscular HGB CONC 33.6 g/dL (32.0-36.0); Mean Corpuscular Hemoglobin 28.7 pg (27.0-31.0); Mean Corpuscular Volume 85.5 fL (78.0-98.0); Mean Platelet Volume 8.7 fL (7.4-10.4); Platelet Count 194 thou/uL (130-400); RBC Distribution Width 14.9 % (11.5-14.5)
[2018-01-07 04:56] LABS: Band 7 % (5-11); Lymphocytes 11 % (21-51); MDiff Complete? YES; Monocytes 8 % (0-10); Neutrophil 74 % (42-75)
[2018-01-07 05:18] LABS: ALT (SGPT) 29 U/L (8-55); AST (SGOT) 95 U/L (5-34); Albumin 3.2 g/dL (3.4-4.8); Alkaline Phosphatase 58 U/L (40-150); Anion Gap 12 mmol/L (10-20); BUN (Urea Nitrogen) 14 mg/dL (9.8-20.1); Bilirubin, Total 0.8 mg/dL (0.2-1.2); Calc. Creatinine Clearance 75 mL/min (70-130); Calcium 9.2 mg/dL (7.8-10.44); Carbon Dioxide 23 mmol/L (23-31); Chloride 116 mmol/L (98-107); Estimated GFR-MDRD 88; Globulin 2.8 g/dL (2.4-3.5); Glucose 96 mg/dL (80-115); Potassium 3.6 mmol/L (3.5-5.1); Sodium 147 mmol/L (136-145)
[2018-01-07 07:43] LABS: Actual Bicarbonate (HCO3a) 19.1 mEq/L (22-28); CO2 Tension 32.4 mmHg (35.0-45.0); Calcium, Ionized 1.2 mmol/L (1.12-1.30); O2 Tension (PaO2) 86.5 mmHg (> 80.0); Puncture Site RRA; pH, Arterial 7.39 (7.35-7.45)
[2018-01-07] MEDS: Famotidine/PF 20 mg/2ml Vial SLOW IVP SCH (08:28)
[2018-01-07] MEDS: Enoxaparin Sodium 40 MG/0.4 ML SYRINGE SC SCH (08:28)
[2018-01-07] MEDS ORDERED: DC Sedation Protocol FS ONE (09:01)
--- NOTE | 2018-01-07 09:09 | PRG ---
DATE OF SERVICE: 01/07/2018 SUBJECTIVE: Ms. Lainey Holloway remains unresponsive on the vent. Pupils are dilated. Severe anoxic injury confirmed on EEG. There is a son and a daughter at the bedside. They want extubation and [facility] care. OBJECTIVE: VITAL SIGNS: Pulse is 94, blood pressure 150/60, sats are 100%, respirations 26. CHEST: Revealed decreased breath sounds, no wheezing. CARDIAC: Normal S1, S2, no gallops. ABDOMEN: Soft, no masses. LABORATORY DATA: White count 15,000, H&H is 8 and 29, platelet count 194. PO2 is 86, pCO2 32%, 39. Electrolytes are normal. IMPRESSION: Severe anoxic injury, out of hospital pulseless electrical arrest. PLAN: As per the family's wishes, she will be extubated and comfort care will be given. Hospice on board. One-half hour critical care time.
[2018-01-07] MEDS: Lorazepam 2 MG/ML VIAL SLOW IVP PRN ×2 (09:43→19:30)
[2018-01-07] MEDS ORDERED: Morphine 10 MG/ML VIAL SLOW IVP SCH (12:00)
[2018-01-07] MEDS: Morphine 10 MG/ML VIAL SLOW IVP PRN ×2 (13:28→19:18)
[2018-01-07] MEDS ORDERED: Acetaminophen 325 MG TAB PO PRN (15:08)
[2018-01-07] MEDS ORDERED: Ketorolac Tromethamine 30 MG/ML VIAL IVP SCH (18:00)
[2018-01-07] MEDS: Acetaminophen 650 MG Suppository PR PRN (19:30)
--- NOTE | 2018-01-07 21:21 | PDOC.PN ---
- Subjective Encounter Start Date: 01/07/18 Encounter Start Time: 13:30 -: non-verbal Patient seen and examined for Resp failure. Extubated. No overnight events - Objective Resuscitation Status: Resuscitation Status DNR:Do Not Resuscitate MAR Reviewed: Yes Vital Signs & Weight: Vital Signs (12 hours) Temp Pulse Resp Pulse Ox 01/07/18 20:00 101.6 F H 106 H 29 H 100 01/07/18 17:00 102 F H 01/07/18 13:00 101 F H 01/07/18 09:42 99 Weight Admit Weight 142 lb 3.17 oz Weight 142 lb 3.17 oz Most Recent Monitor Data Heart Rate from ECG 103 NIBP 137/43 NIBP BP-Mean 63 Respiration from ECG 29 SpO2 100 I&O: 01/06/18 01/07/18 01/08/18 06:59 06:59 06:59 Intake Total 2474.6 842 380 Output Total 1675 1720 460 Balance 799.6 -878 -80 Result Diagrams: 01/07/18 03:45 01/07/18 03:45 EKG Reviewed by me: Yes (Tele SR) Phys Exam - Physical Examination Appears comfortable Respiratory: no wheezing, no rhonchi Cardiovascular: RRR, no rub Gastrointestinal: soft, positive bowel sounds no guarding Musculoskeletal: no edema Dx/Plan - Plan DVT proph w/SCDs IMPRESSION: 1. Acute hypoxic resp failure/Cardiac arrest 2. Cocaine abuse 3. HTN 4. COPD 5. HLD 6. GERD PLAN: Cont supportive care Transfer to medical Terminally extubated Review of Systems - Review of Systems Other: Cannot obtain due to current mentation. - Medications/Allergies Allergies/Adverse Reactions: Allergies Allergy/AdvReac Type Severity Reaction Status Date / Time No Known Allergies Allergy Verified 01/04/18 21:16 Medications: Current Medications Acetaminophen (Tylenol) 650 mg PO Q6H PRN PRN Reason: Fever > 101 Acetaminophen (Tylenol) 650 mg DE Q4H PRN PRN Reason: Headache/Fever or Pain Last Admin: 01/07/18 19:30 Dose: 650 mg Levetiracetam 500 mg/ Device 100 mls @ 200 mls/hr IVPB BID [facility] Last Admin: 01/07/18 08:29 Dose: 100 mls Lorazepam (Ativan) 2 mg SLOW IVP Q1H PRN PRN Reason: Anxiety/Agitation Last Admin: 01/07/18 19:30 Dose: 2 mg Morphine Sulfate (Morphine) 10 mg SLOW IVP Q2H PRN PRN Reason: Congestion Last Admin: 01/07/18 19:18 Dose: 10 mg
[2018-01-08] MEDS: Acetaminophen 650 MG Suppository PR PRN ×2 (04:14→08:44)
[2018-01-08] MEDS ORDERED: Scopolamine 1.5 mg/72 hour Patch TOP SCH (04:30)
[2018-01-08 08:31] VITALS: BP 164/70
[2018-01-08] MEDS: Morphine 10 MG/ML VIAL SLOW IVP PRN ×3 (10:51→14:15)
[2018-01-08] MEDS: Lorazepam 2 MG/ML VIAL SLOW IVP PRN ×3 (10:52→14:14)
[2018-01-08 11:05] VITALS: TEMP 103.9
--- NOTE | 2018-01-08 16:40 | DIS ---
DATE OF ADMISSION: 01/04/2018 DATE OF DISCHARGE: 01/08/2018 DISCHARGE DISPOSITION: To Inpatient Hospice. DISCHARGE MEDICATIONS: Per hospice. BRIEF HOSPITAL COURSE: The patient is a 62-year-old female with hypertension, hyperlipidemia and alexy mabel abuse, was found unresponsive at home. She was discharged from this facility 3 days ago with a diagnosis of hypertensive urgency secondary to cocaine intoxication. Please refer to the history and physical for further details. The patient was admitted to the Intensive Care Unit with a diagnosis of cardiac arrest with pulseless electrical activity. CPR was initiated, which required epinephrine. She was placed on mechanical v entilation. She was monitored in the Intensive Care Unit. The patient was evaluated by Cardiology a s well as Critical Care. She underwent recent coronary angiography in 11/2017 and was found to have no significant coronary artery disease. The patient was later evaluated by Neurology, Dr. Ann Jay due to concern of possible anoxic brain injury. EEG and MRI of the brain were recommended. Palliat rosette care was also involved. The patient was terminally extubated after discussion by Dr. Jean Baptiste and dorian nguyen on 01/07/2018. She will be discharged to Inpatient Hospice today. FINAL DIAGNOSES: 1. Cardiopulmonary arrest with pulseless electrical activity of unclear etiology. 2. History of cocaine abuse. 3. Chronic obstructive pulmonary disease. 4. Hyperlipidemia. 5. Gastroesophageal reflux disease. 6. Hypertension. 7. Elevated troponins, probably secondary to CPR. 8. Acute hypoxic and hypercapnic respiratory failure secondary to cardiopulmonary arrest with pulsel ess electrical activity.
--- NOTE | 2018-01-09 14:02 | EKG ---
Test Reason : ROSC Blood Pressure : / mmHG Vent. Rate : 115 BPM Atrial Rate : 115 BPM P-R Int : 128 ms QRS Dur : 084 ms QT Int : 320 ms P-R-T Axes : 080 092 257 degrees QTc Int : 442 ms Sinus tachycardia Biatrial enlargement Rightward axis Pulmonary disease pattern Marked ST abnormality, possible inferior subendocardial injury Abnormal ECG Similar to 01/01/2018 Confirmed by YUMIKO MILLAN MD ([id number]), department editor NANETTE LANDA ([id number]) on 01/09/2018 2:01:50 PM Referred By: Confirmed By:YUMIKO MILLAN MD
== END 2018-01-08 15:46 | disposition hospice, inpatient (51) | DRG 208 ==
LOC: ERS 17:16 → CCU 20:56 → ONC 01-07 23:07
PROVIDERS: ADMIT Internal Medicine; ATTEND Internal Medicine
PROC: 5A1945Z Respiratory Ventilation, 24-96 Consecutive Hours (ICD-10-PCS; principal; 2018-01-04)
DX: J96.01 Acute respiratory failure with hypoxia (principal); I46.9 Cardiac arrest, cause unspecified; G93.1 Anoxic brain damage, not elsewhere classified; R65.10 Systemic inflammatory response syndrome (SIRS) of non-infectious origin without acute organ dysfunction; J44.9 Chronic obstructive pulmonary disease, unspecified; J96.02 Acute respiratory failure with hypercapnia; Z51.5 Encounter for palliative care; Z66 Do not resuscitate; F14.10 Cocaine abuse, uncomplicated; I10 Essential (primary) hypertension; E78.5 Hyperlipidemia, unspecified; K21.9 Gastro-esophageal reflux disease without esophagitis; R56.9 Unspecified convulsions; F17.210 Nicotine dependence, cigarettes, uncomplicated; Z79.82 Long term (current) use of aspirin; Z79.899 Other long term (current) drug therapy
CPT/HCPCS: 36415; 36416; 36556; 51702; 70450; 71045; 80048; 80053; 80306; 80307; 81003; 81015; 82010; 82140; 82550; 82553; 82805; 83605; 83690; 83735; 84100; 84443; 84484; 85025; 87040; 87086; 93005; 93010; 94002; 94003; 94760; 95816; 95819; 96361; 96365; 96366; 96368; 96375; 96376; 99292; A4216; C1769; J0131; J1650; J1815; J1885; J1953; J2060; J2270; J2543; J2704; J3010; J7050; S0028